=== PATIENT | male | born 1945 | race Caucasian/White ===

== ENCOUNTER 2023-12-20 09:29 | Outpatient (CLI) | payer MEDICARE, SELFPAY ==
[2023-12-20 19:13] LABS: Alanine Aminotransferase 26 U/L (6-50); Albumin Level 3.5 g/dL (3.5-5.1); Alkaline Phosphatase 238 U/L (38-126); Anion Gap 0 mmol/L (8-16); Aspartate Amino Transferase 44 U/L (17-59); Bilirubin,Total 0.5 mg/dL (0.2-1.3); Blood Urea Nitrogen 19 mg/dL (9-20); CRP 2.2 mg/dL (<1.0); Calcium 9.2 mg/dL (8.4-10.2); Carbon Dioxide 34 mmol/L (22-30); Chloride 102 mmol/L (98-107); Cholesterol 187 mg/dL (0-200); Estimated Glomerular Filt Rate > 60; Glucose 135 mg/dL (65-110); HDL Direct 51 mg/dL; Potassium 3.6 mmol/L (3.4-5.0); Sodium 136 mmol/L (137-145); Triglycerides 109 mg/dL (<150)
[2023-12-20 19:21] LABS: LDL Cholesterol Direct 116 mg/dL
[2023-12-20 19:30] LABS: Basophils Absolute Auto 0.1 K/mm3 (0.0-0.1); Basophils Percent Auto 0.5 % (0.2-1.2); Eosinophils Absolute Auto 0.3 K/mm3 (0-0.3); Eosinophils Percent Auto 2.4 % (0-4.4); Hematocrit 34.4 % (42.0-52.0); Hemoglobin 10.5 g/dL (14.0-18.0); Immature Granulocyte Absolute 0.44 K/mm3 (0.00-0.031); Immature Granulocyte Percent A 4.2 % (0-0.5); Lymphocytes Absolute Auto 2.68 K/mm3 (0.9-3.2); Lymphocytes Percent Auto 25.8 % (18.3-44.2); Mean Corpuscular HGB Conc 30.5 g/dl (32-36); Mean Corpuscular Hemoglobin 29.2 pg (26-34); Mean Corpuscular Volume 95.8 fl (80-100); Mean Platelet Volume 11.7 fl (7.4-10.4); Monocytes Percent Auto 9.5 % (2.6-8.5); Neutrophils Percent Auto 57.6 % (45.5-73.1); Platelet Count Result 285 k/mm3 (150-375); Red Blood Count 3.59 M/mm3 (4.6-6.20); Red Cell Distribution Width 14.7 % (11.5-14.5); White Blood Count 10.4 K/mm3 (4.5-10.0)
[2023-12-20 20:14] LABS: Erythrocyte Sedimentation Rate 21 mm/hr (0-20)
== END 2023-12-20 09:30 | disposition home or self-care (01) ==
PROVIDERS: PCP Nurse Practitioner Family; Visit Provider Emergency Medicine
DX: T81.49XA Infection following a procedure, other surgical site, initial encounter (principal); R60.0 Localized edema; E78.5 Hyperlipidemia, unspecified
CPT/HCPCS: 36415; 80053; 80061; 85025; 85652; 86140

== ENCOUNTER 2024-01-22 11:22 | Outpatient (CLI) | payer MEDICARE, SELFPAY ==
--- NOTE | ~2024-01-22 | XR_ITS ---
Clinical Indication: Shortness of breath PA and lateral views of the chest: Comparison: None Findings: Large left pleural effusion present. Right lung clear. Cardiomediastinal silhouette is wit hin normal limits. Bones and soft tissues are unremarkable. Impression: Large left pleural effusion. Reviewed, dictated and finalized at [facility]. Impression: Large left pleural effusion.
== END 2024-01-22 11:23 ==
PROVIDERS: PCP Emergency Medicine; Visit Provider Nurse Practitioner Family
DX: R06.02 Shortness of breath (principal); R05.9 Cough, unspecified; J90 Pleural effusion, not elsewhere classified
CPT/HCPCS: 71046

== ENCOUNTER 2024-04-23 11:39 | Outpatient (CLI) | payer MEDICARE, SELFPAY ==
[2024-04-23 13:20] LABS: Basophils Percent Auto 0.3 % (0.2-1.2); Eosinophils Absolute Auto 0.3 K/mm3 (0-0.3); Eosinophils Percent Auto 3.1 % (0-4.4); Hematocrit 41.2 % (42.0-52.0); Hemoglobin 13.7 g/dL (14.0-18.0); Immature Granulocyte Absolute 0.08 K/mm3 (0.00-0.031); Immature Granulocyte Percent A 0.9 % (0-0.5); Lymphocytes Absolute Auto 2.84 K/mm3 (0.9-3.2); Lymphocytes Percent Auto 32.6 % (18.3-44.2); Mean Corpuscular HGB Conc 33.3 g/dl (32-36); Mean Corpuscular Hemoglobin 28.7 pg (26-34); Mean Corpuscular Volume 86.2 fl (80-100); Mean Platelet Volume 11.1 fl (7.4-10.4); Monocytes Absolute Auto 0.7 K/mm3 (0.1-0.6); Monocytes Percent Auto 8.5 % (2.6-8.5); Neutrophils Absolute Auto 4.7 K/mm3 (1.3-6.7); Neutrophils Percent Auto 54.6 % (45.5-73.1); Platelet Count Result 245 k/mm3 (150-375); Red Blood Count 4.78 M/mm3 (4.6-6.20); Red Cell Distribution Width 16.6 % (11.5-14.5); White Blood Count 8.7 K/mm3 (4.5-10.0)
[2024-04-23 13:53] LABS: Iron 107 ug/dL (49-181)
[2024-04-23 13:59] LABS: Alanine Aminotransferase 14 U/L (6-50); Albumin Level 4.5 g/dL (3.5-5.1); Alkaline Phosphatase 128 U/L (38-126); Anion Gap 7 mmol/L (4-12); Aspartate Amino Transferase 39 U/L (17-59); Bilirubin,Total 0.7 mg/dL (0.2-1.3); Blood Urea Nitrogen 13 mg/dL (9-20); Calcium 9.3 mg/dL (8.4-10.2); Carbon Dioxide 30 mmol/L (22-30); Chloride 104 mmol/L (98-107); Estimated Glomerular Filt Rate > 60; Glucose 105 mg/dL (65-110); Potassium 3.8 mmol/L (3.4-5.0); Sodium 141 mmol/L (137-145)
[2024-04-23 14:26] LABS: Prostate Specific Antigen 0.9 ng/mL (< OR = 4.0)
[2024-04-23 14:35] LABS: Percent Iron Saturation 34 % (20-50)
[2024-04-23 15:23] LABS: Hemoglobin A1C 5.7 % (<5.7)
[2024-04-23 15:33] LABS: Vitamin D 25 Hydroxy 21.5 ng/mL
== END 2024-04-23 11:40 | disposition home or self-care (01) ==
LOC: ANHGOSHLAB 11:40
PROVIDERS: PCP Emergency Medicine; Visit Provider Emergency Medicine
DX: D64.9 Anemia, unspecified (principal); R73.01 Impaired fasting glucose; Z12.5 Encounter for screening for malignant neoplasm of prostate; R53.83 Other fatigue; F41.9 Anxiety disorder, unspecified; E55.9 Vitamin D deficiency, unspecified
CPT/HCPCS: 36415; 80053; 82306; 82607; 82728; 83036; 83540; 83550; 84153; 84443; 85025; G0103

== ENCOUNTER 2024-12-17 08:54 | Outpatient (CLI) | payer MEDICARE, SELFPAY ==
--- OUTSIDE RECORDS SUMMARY | 2024-12-17 09:30 | XMS_ITS | Encounter Summary ---
Author Organization [facility] Health Address [address] [place] [address] Care Team Providers Care Booking Agent Name Role Phone Jaret Saini MD Primary Care Provider [phone] Encounter Details Date Type Department Care Team (Latest Contact Info) Description 12/16/2024 Travel Social History Tobacco Use Types Packs/Day Years Used Date Smoking Tobacco: Never Smokeless Tobacco: Former Chew Alcohol Use Standard Drinks/Week Comments Yes 0 (1 standard drink = 0.6 oz pur e alcohol) rarely AUDIT-C Answer Date Recorded Q1: How often do you have a drink containing alc ohol? Never 03/05/2024 Average Number of Drinks Not on file 024 Frequency of Binge Drinking Not on file 02/20 Overall Financial Resource Strain (CARDIA) Answe r Date Recorded How hard is it for you to pa y for the very basics like food, housing, medical care, and heating? Not hard at all 2023 PHQ-2 Answer Date Recorded Patient Health Questionnaire-2 Score 0 01/23/2024 [facility] - Occupational Stress Questionnaire Answer Date Recorded Do you feel stress - tense, restless, nervous, or anxious, or unable to sleep at night because your mind is troubled all the time - these days? Not at all 2023 Hunger Vital Sign Answer Date Recorded Within the past 12 months, y ou worried that your food would run out before you got the money to buy more. Never true 10/25/19 24 Within the past 12 months, t he food you bought just didn't last and you didn't have money to get more. Never true 2023 PRAPARE - Transportation Answer Date Re corded In the past 12 months, has l ack of transportation kept you from medical appointments or from getting medications? No 12/2023 In the past 12 months, has l ack of transportation kept you from meetings, work, or from getting things needed for daily living? No 2023 Housing Stability Vital Sign Answer Kip e Recorded In the last 12 months, was t here a time when you were not able to pay the mortgage or rent on time? No 2023 In the last 12 months, how many places have you lived? 1 2023 In the last 12 months, was t here a time when you did not have a steady place to sleep or slept in a senior living (including now)? 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 Yes 03/05/2024 Is person blind or have serious difficulty seein g? No 03/05/2024 Does person have serious dif ficulty walking/climbing stairs? No 03/05/2024 Does person have difficulty dressing/bathing? No 03/05/2024 Does person have difficulty doing errands alone? No 03/05/2024 Cognitive Status Response Date of Assessm ent Does person have difficulty concentrating/remembering/making decisions? No 03/05/2024 documented as of this encounter Plan of Treatment Not on file documented as of this encounter Visit Diagnoses Not on filedocumented in this encounter Care Teams Booking Agent Relationship Specialty Start Date End Date Jaret Saini MD [address] [place] [address] PCP - General 02/21/12 documented as of this encounter
--- OUTSIDE RECORDS SUMMARY | 2024-12-17 09:30 | XMS_ITS | Encounter Summary ---
Author Organization [facility] Health Address [address] [place] [address] Care Team Providers Care Named Account Executive Name Role Phone Jaret Saini MD Primary Care Provider [phone] Reason for Referral * Independent Medical Evaluation (Routine) - Open Specialty Diagnoses / Procedures Referred By [facility] Referred To Contact Diagnoses Crushing injury of left forearm, initial encounter Tashi Matthew MD [address] [place] [id number] Referral ID Status Reason Start Date Expiration Date V isits Requested Visits Authorized [id number] Open Specialty Services Required 12/16/2024 12/16/2025 1 1 ATION PROFESSOR Reason for Visit * Reason Comments Follow-up Encounter Details Date Type Department Care Team (Late st Contact Info) Description 12/16/2024 1:45 PM EDUCATION PROFESSOR Office Visit [facility] - Plastic Surgery [address] [place] [address], [facility] [place] [id number] Tashi Matthew MD [address] [place] [phone] Crushing injury of left forearm, initial encounter (Primary Dx) Social History Tobacco Use Types Packs/Day Years Used Date Smoking Tobacco: Never Smokeless Tobacco: Former Chew Tobacco Cessation:Counseling Given: No Alcohol Use Standard Drinks/Week Comments Yes 0 [...] Recorded Patient Health Questionnaire-2 Score 0 01/23/2024 [facility] ional Health - Occupational Stress [...] place to sleep or slept in a group home (including now)? No 2023 Sex and Gender Information Value Date Recorded Sex Assigned at Male 2023 10:40 AM EDUCATION PROFESSOR Gender Identity Male 2023 10:40 AM EDUCATION PROFESSOR Sexual Orientation Not on file documented as of this encounter Last Filed Vital Signs Vital Sign Reading Time Taken Comments Blood Pressure 135/84 12/16/2024 2:29 PM EDUCATION PROFESSOR Pulse 70 12/16/2024 2:29 PM EDUCATION PROFESSOR Temperature 36.9 C (98.4 F) 12/16/2024 2:29 PM EDUCATION PROFESSOR Respiratory Rate - - Oxygen Saturation 93% 12/16/2024 2:29 PM EDUCATION PROFESSOR Inhaled Oxygen Concentration - - Weight 104.8 kg (231 lb) 12/16/2024 2:29 PM EDUCATION PROFESSOR Height 170.2 cm (5' 7 ) 12/16/2024 2:29 PM EDUCATION PROFESSOR Body Mass Index 36.18 12/16/2024 2:29 PM EDUCATION PROFESSOR documented in this encounter Functional Status Functional Status Response [...] as of this encounter Plan of Treatment Scheduled Referrals Name Type Priority Associated Diagnoses Order Schedule Ref to Occupational Therapy - [facility] OT Outpatient Referral Routine Crushing injury of left forearm, initial encounter 1 Occurrences starting 12/16/2024 until 12/16/2025 documented as of this encounter Visit Diagnoses Diagnosis Crushing injury of left forearm, initial encounter- Primary documented in this encounter Care Teams Named Account Executive Relationship Specialty Start Date End Date Jaret Saini MD [address] [place] [address] PCP - General 02/21/12 documented as of this encounter
--- OUTSIDE RECORDS SUMMARY | 2024-12-17 09:30 | XMS_ITS | Patient Health Summary ---
Author Organization [facility] Address [address] [place] [address] Care Team Providers Care Dipper Operator Name Role Phone Jaret Saini MD Primary Care Provider Note from [facility],non-owned Affiliates and Associated Physician Practices is amultiple site organization consisting of ambulatory clinics and hospital sitesin [place], [place], [place] and [place]. This disclosure is being madepursuant to the Care Everywhere program and may not contain all information available regarding this patient. Last updated 18.[facility] Allergies * Posaconazole(Nausea and/or Vomiting) Medications * Be aware that medications may not be up to date on this document. Alwaysverify current medications with the patient. * Nutritional Supplements (Brennan) POWD(Started 11/24/2023) Take 1 packet by mouth 2 times daily Mix with water, juice, soda. * acetaminophen (Tylenol) 500 MG tablet(Started 11/30/2023) Take 1 (one) tablet by mouth every 6 hours Maximum allowable Acetaminophen amount = 4 Grams (4000 mg) / 24 hours. * hydrOXYzine HCl (Atarax) 10 MG tablet(Started 11/30/2023) Take 1 (one) tablet by mouth 4 times daily as needed for Itching Reasons: Feeling Anxious * melatonin 3 MG tablet(Started 11/30/2023) Take 1 (one) tablet by mouth nightly as needed for Insomnia * bumetanide (Bumex) 1 MG tablet(Started 12/20/2023) Take 1 (one) tablet by mouth once daily * SV Iron 325 (65 Fe) MG tablet(Started 01/18/2024) Take 1 (one) tablet by mouth once daily * PARoxetine (Paxil) 40 MG tablet(Started 01/18/2024) Take 1 (one) tablet by mouth once daily * lisinopril (Prinivil; Zestril) 10 MG tablet(Started 10/21/2024) Take 1 (one) tablet by mouth once daily * triamcinolone acetonide (Kenalog) 0.1 % cream(Started 04/23/2024) APPLY CREAM EXTERNALLY TWICE DAILY TO THE RIGHT OUTER EAR Ended Medications* white petroleum (Vaseline) ointment(Started 11/30/2023) (Discontinued) Apply to affected area once daily to LUE as per wound care instructions daily with dressing changes. * posaconazole (Noxafil) 100 MG tablet(Started 12/14/2023)(Discontinued) Take 3 (three) tablets by mouth daily with dinner 4 refills by 12/13/2024 Active Problems Problem Noted Date Diagnosed Date SOB (shortness of breath) 01/23/2024 Pleural effusion, left 01/23/2024 Acute hypoxic respiratory failure 11/17/2023 Primary hypertension 11/17/2023 Acute blood loss anemia 2023 Crushing injury of left forearm, initial encount er 10/24/2023 Type I or II open fracture o f shaft of left radius with ulna, initial encounter 10/24/2023 Other infective otitis externa, unspecified ear 08/06/2015 Sensorineural hearing loss of both ears 02/22/20 12 Pruritus 02/22/2012 Otorrhea 02/22/2012 Tinnitus 02/22/2012 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 No 2023 Sex and Gender Information Value Date Recorded Sex Assigned at Male 2023 10:40 AM [employer]IGH [employer]CHO[employer] ADMISSIONS REPRESENTATIVE Gender Identity Male 2023 10:40 AM HIGH SCHOOL ADMISSIONS REPRESENTATIVE Sexual Orientation Not on file Last Filed Vital Signs Vital Sign Reading Time Taken Comments Blood Pressure 135/84 12/16/2024 2:29 PM HIGH SCHOOL ADMISSIONS REPRESENTATIVE Pulse 70 12/16/2024 2:29 PM HIGH SCHOOL ADMISSIONS REPRESENTATIVE Temperature 36.9 C (98.4 F) 12/16/2024 2:29 PM HIGH SCHOOL ADMISSIONS REPRESENTATIVE Respiratory Rate 18 07/22/2024 1:02 PM CDT Oxygen Saturation 93% 12/16/2024 2:29 PM HIGH SCHOOL ADMISSIONS REPRESENTATIVE Inhaled Oxygen Concentration 35% 11/20/2023 4 :00 AM HIGH SCHOOL ADMISSIONS REPRESENTATIVE Weight 104.8 kg (231 lb) 12/16/2024 2:29 PM HIGH SCHOOL ADMISSIONS REPRESENTATIVE Height 170.2 cm (5' 7 ) 12/16/2024 2:29 PM HIGH SCHOOL ADMISSIONS REPRESENTATIVE Body Mass Index 36.18 12/16/2024 2:29 PM HIGH SCHOOL ADMISSIONS REPRESENTATIVE Medical Devices Implanted Type Area Dyeing Machine Tender Device Identifier Shelf Expiration Date Model / Serial / Lot Screw 2.7mm 5mm 14mm T8 Slf-Tap Strdr Implanted:Qty: 1 on 10/24/2023 by Tashi Matthew MD at [facility] [employer] | [employer] [facility] [id number] / / Screw 3.5mm 2.9mm 20mm T15 Ft Slf-Tap Implanted:Qty: 1 on 10/24/2023 by Tashi Matthew MD at [facility] [employer] | [employer] [facility] 212.106 / / Screw 3.5mm 6mm 14mm Ft Samuel Slf-Tap Sm Implanted:Qty: 3 on 10/24/2023 by Tashi Matthew MD at [facility] 204.814 / / Screw 3.5mm 6mm 16mm 2.5mm Ft Slf-Tap Implanted:Qty: 5 on 10/24/2023 by Tashi Matthew MD at [facility] [employer] | [employer] [facility] 204.816 / / Plate [id number] 10 Hl Lmt Cntct Tpr Implanted:Qty: 1 on 10/24/2023 by Tashi Matthew MD at [facility] [employer] | [employer] [facility] 223.601 / / Plate 12 Hl Lmt Cntct Tpr End [id number] Implanted:Qty: 1 on 10/24/2023 by Tashi Matthew MD at [facility] [employer] | [employer] [facility] 223.621 / / Screw 2.7mm 5mm 16mm T8 Slf-Tap Strdr Implanted:Qty: 2 on 10/24/2023 by Tashi Matthew MD at [facility] 202.876 / / Screw 2.7mm 5mm 18mm T8 Samuel Slf-Tap Implanted:Qty: 2 on 10/24/2023 by Tashi Matthew MD at [facility] 202.878 / / Screw 2.7mm 2.1mm 20mm T8 Slf-Tap Lck Implanted:Qty: 1 on 10/24/2023 by Tashi Matthew MD at [facility] 202.220 / / Plate 2 Hle/Hd 3 Hl Shft Lopro Cut To Implanted:Qty: 1 on 10/24/2023 by Tashi Matthew MD at [facility] 249.685 / / Screw 3.5mm 2.9mm 10mm T15 Ft Slf-Tap Implanted:Qty: 1 on 10/24/2023 by Tashi Matthew MD at [facility] 212.101 / / Screw 3.5mm 2.9mm 14mm T15 Ft Slf-Tap Implanted:Qty: 1 on 10/24/2023 by Tashi Matthew MD at [facility] 212.103 / / Screw 3.5mm 2.9mm 16mm T15 Ft Slf-Tap Implanted:Qty: 3 on 10/24/2023 by Tashi Matthew MD at [facility] 212.104 / / Screw 3.5mm 2.9mm 18mm T15 Ft Slf-Tap Implanted:Qty: 1 on 10/24/2023 by Tashi Matthew MD at [facility] 212.105 / / Mtrx Tissue [id number] Cytal Prcn Bldr 3 - [id number] Implanted:Qty: 1 on 10/27/2023 by Tashi Matthew MD at [facility] Left: Arm [employer] Conecte Link Erika 03/22/2025 [id number] / [id number] / [id number] 3.5mm Cannulated Compression Headless Screw 26mm Implanted:Qty: 1 on 10/27/2023 by Tashi Matthew MD at [facility] Left: Arm [employer] Tra[employer] [id number] / / Sys Impl Internalbrace Forefoot Peek Implanted:Qty: 1 on 11/17/2023 by Tashi Matthew MD at [facility] Left: Arm [employer] 04/21/2028 AR-1530P-C P / / [id number] Set Impl Internalbrace Hand Wrst Kt Implanted:Qty: 1 on 11/17/2023 by Tashi Matthew MD at [facility] Left: Arm [employer] 07/22/2024 [id number] / / [id number] [place] Sut Cscr Fwr 2.2mm 2 Ndl Wire 4mm Implanted:Qty: 1 on 11/17/2023 by Tashi Matthew MD at [facility] Left: Arm [employer] 12/21/2027 AR-[id number] / / [id number] Explanted Type Area Dyeing Machine Tender Device Identifier Shelf Expiration Date Model / Serial / Lot K-Wire 1.6mm (0.062) X 152 (6) Explanted:Qty: 2 on 11/17/2023 by Tashi Matthew MD at [facility] Left: Arm 08/08/2026 [id number] / / [id number] Procedures * XR CHEST 1VW PORTABLE(Performed 03/05/2024) Performed for Pleural effusion, left * XR CHEST 1VW PORTABLE(Performed 03/05/2024) Performed for Pleural effusion, left * CULTURE ANAEROBE(Performed 03/05/2024) Performed for Pleural effusion, left * CULTURE FLUID+GRAM STAIN(Performed 03/05/2024) Performed for Pleural effusion, left * PROTEIN BODY FLUID(Performed 03/05/2024) Performed for Pleural effusion, left * AMYLASE BODY FLUID(Performed 03/05/2024) Performed for Pleural effusion, left * LDH BODY FLUID(Performed 03/05/2024) Performed for Pleural effusion, left * CHOLESTEROL BODY FLUID(Performed 03/05/2024) Performed for Pleural effusion, left * GLUCOSE BODY FLUID(Performed 03/05/2024) Performed for Pleural effusion, left * CYTOLOGY NON-PLATFORM LOADER PANEL (STL)(Performed 03/05/2024) Performed for Pleural effusion, left * DIFFERENTIAL MANUAL FLUID(Performed 03/05/2024) Performed for Pleural effusion, left * CELL COUNT W DIFFERENTIAL FLUID(Performed 03/05/2024) Performed for Pleural effusion, left * PH BODY FLUID ([facility] ONLY)(Performed 03/05/2024) Performed for Pleural effusion, left * MN ASPIRATE PLEURA WO IMAGING(Performed 03/05/2024) Performed for Pleural effusion * XR CHEST 2VW(Performed 02/29/2024) Performed for Pleural effusion * PROTEIN TOTAL BLOOD(Performed 01/25/2024) * XR CHEST 1VW PORTABLE(Performed 01/25/2024) Performed for Pleural effusion, left * DIFFERENTIAL MANUAL FLUID(Performed 01/25/2024) Performed for Pleural effusion, left * CELL COUNT W DIFFERENTIAL FLUID(Performed 01/25/2024) Performed for Pleural effusion, left * AMYLASE BODY FLUID(Performed 01/25/2024) * CHOLESTEROL BODY FLUID(Performed 01/25/2024) * LDH BODY FLUID(Performed 01/25/2024) * PROTEIN BODY FLUID(Performed 01/25/2024) * GLUCOSE BODY FLUID(Performed 01/25/2024) * CULTURE FUNGUS OTHER+FUNGUS SMEAR(Performed 01/25/2024) * CULTURE FLUID+GRAM STAIN(Performed 01/25/2024) * CULTURE ANAEROBE(Performed 01/25/2024) * CYTOLOGY NON-PLATFORM LOADER PANEL (STL)(Performed 01/25/2024) Performed for Pleural effusion, left * PH BODY FLUID ([facility] ONLY)(Performed 01/25/2024) * PT EVAL AND TREAT(Performed 01/25/2024) * TSH REFLEX FREE T4(Performed 01/25/2024) * CBC W AUTO DIFFERENTIAL(Performed 01/25/2024) * MAGNESIUM BLOOD(Performed 01/25/2024) * PHOSPHORUS BLOOD(Performed 01/25/2024) * BASIC METABOLIC PANEL (CALCIUM TOTAL)(Performed 01/25/2024) * XR CHEST 1VW PORTABLE(Performed 01/24/2024) Performed for Pleural effusion, left * OT EVAL AND TREAT(Performed 01/24/2024) * CBC W AUTO DIFFERENTIAL(Performed 01/24/2024) * MAGNESIUM BLOOD(Performed 01/24/2024) * PHOSPHORUS BLOOD(Performed 01/24/2024) * BASIC METABOLIC PANEL (CALCIUM TOTAL)(Performed 01/24/2024) * LDH BLOOD(Performed 01/24/2024) * ERYTHROCYTE SEDIMENTATION RATE(Performed 01/24/2024) * TROPONIN-I HIGH SENSITIVE REFLEX 1HOUR(Performed 01/24/2024) * CYTOLOGY NON-PLATFORM LOADER PANEL (STL)(Performed 01/23/2024) Performed for Pleural effusion, left * PROTEIN BODY FLUID(Performed 01/23/2024) * DIFFERENTIAL MANUAL FLUID(Performed 01/23/2024) * AMYLASE BODY FLUID(Performed 01/23/2024) * LDH BODY FLUID(Performed 01/23/2024) * PH BODY FLUID ([facility] ONLY)(Performed 01/23/2024) * GLUCOSE BODY FLUID(Performed 01/23/2024) * CELL COUNT W DIFFERENTIAL FLUID(Performed 01/23/2024) * CULTURE FLUID+GRAM STAIN(Performed 01/23/2024) * CT ANGIO CHEST PULM EMBOLISM(Performed 01/23/2024) Performed for Pleural effusion, left, SOB (shortness of breath) * XR HAND LEFT 3VW OR MORE(Performed 01/23/2024) Performed for Right leg swelling * VAS RIGHT VENOUS DUPLEX LE(Performed 01/23/2024) Performed for Right leg swelling * XR CHEST 2VW(Performed 01/23/2024) Performed for Right leg swelling * EKG 12-LEAD(Performed 01/23/2024) Performed for Right leg swelling * PT-INR [facility](Performed 01/23/2024) * TROPONIN-I HIGH SENSITIVE BASELINE + 1HR(Performed 01/23/2024) * B-TYPE NATRIURETIC PEPTIDE(Performed 01/23/2024) * MAGNESIUM BLOOD(Performed 01/23/2024) * COMPREHENSIVE METABOLIC PANEL(Performed 01/23/2024) * CBC W AUTO DIFFERENTIAL(Performed 01/23/2024) * XR FOREARM LEFT 2VW OR MORE(Performed 12/19/2023) Performed for Crushing injury of left forearm, initial encounter * APHERESIS/TRANSFUSION ORDER(Performed 12/04/2023) * SARS-COV-2 (COVID-19) RAPID(Performed 12/01/2023) * COMPREHENSIVE METABOLIC PANEL(Performed 12/01/2023) * CBC W AUTO DIFFERENTIAL(Performed 12/01/2023) * MAGNESIUM BLOOD(Performed 12/01/2023) * PHOSPHORUS BLOOD(Performed 12/01/2023) * COMPREHENSIVE METABOLIC PANEL(Performed 11/30/2023) * CBC W AUTO DIFFERENTIAL(Performed 11/30/2023) * MAGNESIUM BLOOD(Performed 11/30/2023) * PHOSPHORUS BLOOD(Performed 11/30/2023) * COMPREHENSIVE METABOLIC PANEL(Performed 11/29/2023) * CBC W AUTO DIFFERENTIAL(Performed 11/29/2023) * MAGNESIUM BLOOD(Performed 11/29/2023) * PHOSPHORUS BLOOD(Performed 11/29/2023) * COMPREHENSIVE METABOLIC PANEL(Performed 11/28/2023) * CBC W AUTO DIFFERENTIAL(Performed 11/28/2023) * MAGNESIUM BLOOD(Performed 11/28/2023) * PHOSPHORUS BLOOD(Performed 11/28/2023) * COMPREHENSIVE METABOLIC PANEL(Performed 11/27/2023) * CBC W AUTO DIFFERENTIAL(Performed 11/27/2023) * MAGNESIUM BLOOD(Performed 11/27/2023) * PHOSPHORUS BLOOD(Performed 11/27/2023) * COMPREHENSIVE METABOLIC PANEL(Performed 11/26/2023) * CBC W AUTO DIFFERENTIAL(Performed 11/26/2023) * MAGNESIUM BLOOD(Performed 11/26/2023) * PHOSPHORUS BLOOD(Performed 11/26/2023) * PTT [facility](Performed 11/25/2023) * PT-INR [facility](Performed 11/25/2023) * COMPREHENSIVE METABOLIC PANEL(Performed 11/25/2023) * CBC W AUTO DIFFERENTIAL(Performed 11/25/2023) * MAGNESIUM BLOOD(Performed 11/25/2023) * PHOSPHORUS BLOOD(Performed 11/25/2023) * PREALBUMIN(Performed 11/25/2023) * PTT [facility](Performed 11/24/2023) * PT-INR [facility](Performed 11/24/2023) * COMPREHENSIVE METABOLIC PANEL(Performed 11/24/2023) * CBC W AUTO DIFFERENTIAL(Performed 11/24/2023) * MAGNESIUM BLOOD(Performed 11/24/2023) * PHOSPHORUS BLOOD(Performed 11/24/2023) * PTT [facility](Performed 11/23/2023) * PT-INR [facility](Performed 11/23/2023) * COMPREHENSIVE METABOLIC PANEL(Performed 11/23/2023) * CBC W AUTO DIFFERENTIAL(Performed 11/23/2023) * MAGNESIUM BLOOD(Performed 11/23/2023) * PHOSPHORUS BLOOD(Performed 11/23/2023) * PTT [facility](Performed 11/22/2023) * PT-INR [facility](Performed 11/22/2023) * COMPREHENSIVE METABOLIC PANEL(Performed 11/22/2023) * CBC W AUTO DIFFERENTIAL(Performed 11/22/2023) * MAGNESIUM BLOOD(Performed 11/22/2023) * PHOSPHORUS BLOOD(Performed 11/22/2023) * PTT [facility](Performed 11/21/2023) * PT-INR [facility](Performed 11/21/2023) * COMPREHENSIVE METABOLIC PANEL(Performed 11/21/2023) * CBC W AUTO DIFFERENTIAL(Performed 11/21/2023) * MAGNESIUM BLOOD(Performed 11/21/2023) * PHOSPHORUS BLOOD(Performed 11/21/2023) * PREPARE RBC LEUKOREDUCED UNIT(Performed 11/21/2023) * PREPARE RBC LEUKOREDUCED UNIT(Performed 11/21/2023) * GLUCOSE - POINT OF CARE(Performed 11/20/2023) * GLUCOSE - POINT OF CARE(Performed 11/20/2023) * GLUCOSE - POINT OF CARE(Performed 11/20/2023) * GLUCOSE - POINT OF CARE(Performed 11/20/2023) * PTT [facility](Performed 11/20/2023) * PT-INR [facility](Performed 11/20/2023) * COMPREHENSIVE METABOLIC PANEL(Performed 11/20/2023) * CBC W AUTO DIFFERENTIAL(Performed 11/20/2023) * MAGNESIUM BLOOD(Performed 11/20/2023) * PHOSPHORUS BLOOD(Performed 11/20/2023) * GLUCOSE - POINT OF CARE(Performed 11/19/2023) * GLUCOSE - POINT OF CARE(Performed 11/19/2023) * CK BLOOD(Performed 11/19/2023) * GLUCOSE - POINT OF CARE(Performed 11/19/2023) * PTT [facility](Performed 11/19/2023) * PT-INR [facility](Performed 11/19/2023) * COMPREHENSIVE METABOLIC PANEL(Performed 11/19/2023) * CBC W AUTO DIFFERENTIAL(Performed 11/19/2023) * MAGNESIUM BLOOD(Performed 11/19/2023) * PHOSPHORUS BLOOD(Performed 11/19/2023) * GLUCOSE - POINT OF CARE(Performed 11/18/2023) * GLUCOSE - POINT OF CARE(Performed 11/18/2023) * GLUCOSE - POINT OF CARE(Performed 11/18/2023) * ECHO COMPLETE W CONTRAST(Performed 11/18/2023) Performed for Systolic murmur * TRANSFUSE RED BLOOD CELL LEUKOREDUCED UNIT(S)(Performed 11/18/2023) * CBC W AUTO DIFFERENTIAL(Performed 11/18/2023) * GLUCOSE - POINT OF CARE(Performed 11/18/2023) * COMPREHENSIVE METABOLIC PANEL(Performed 11/18/2023) * MAGNESIUM BLOOD(Performed 11/18/2023) * PHOSPHORUS BLOOD(Performed 11/18/2023) * PTT [facility](Performed 11/18/2023) * PT-INR [facility](Performed 11/18/2023) * PREALBUMIN(Performed 11/18/2023) * PTT [facility](Performed 11/17/2023) * PT-INR [facility](Performed 11/17/2023) * CBC W AUTO DIFFERENTIAL(Performed 11/17/2023) * XR CHEST 1VW PORTABLE(Performed 11/17/2023) Performed for Shortness of breath * PTT [facility](Performed 11/17/2023) * PT-INR [facility](Performed 11/17/2023) * PHOSPHORUS BLOOD(Performed 11/17/2023) * MAGNESIUM BLOOD(Performed 11/17/2023) * COMPREHENSIVE METABOLIC PANEL(Performed 11/17/2023) * CBC W AUTO DIFFERENTIAL(Performed 11/17/2023) * BLOOD GAS+COOX+LYTES+METAB ARTERIAL POCT(Performed 11/17/2023) * BLOOD GAS+COOX+LYTES+METAB ARTERIAL POCT(Performed 11/17/2023) * BLOOD GAS+COOX+LYTES+METAB ARTERIAL POCT(Performed 11/17/2023) * ADAL FOR ANESTHESIA(Performed 11/17/2023) * BLOOD GAS+COOX+LYTES+METAB ARTERIAL POCT(Performed 11/17/2023) * BLOOD GAS ART+LYTES+METAB+COOX POC NOTIF(Performed 11/17/2023) Performed for CARROL (acute kidney injury) (HCC) * ARTERIAL LINE NOTE(Performed 11/17/2023) * ENDOTRACHEAL TUBE NOTE(Performed 11/17/2023) * MN FREE MUSC FLAP W/WO MICROVASC ANAST(Performed 11/17/2023) Performed for Mutilating injury of left hand, subsequent encounter * MN EDMUNDO MUSC/FASCIA 20 SQ CM/<(Performed 11/17/2023) Performed for Mutilating injury of left hand, subsequent encounter * ECHO ANES ADAL INTRAOP(Performed 11/17/2023) Performed for Systolic murmur * TYPE + SCREEN PANEL(Performed 11/17/2023) Performed for Crushing injury of left forearm, initial encounter * BASIC METABOLIC PANEL (CALCIUM TOTAL)(Performed 11/17/2023) * MAGNESIUM BLOOD(Performed 11/17/2023) * CBC W AUTO DIFFERENTIAL(Performed 11/17/2023) * BASIC METABOLIC PANEL (CALCIUM TOTAL)(Performed 11/16/2023) * MAGNESIUM BLOOD(Performed 11/16/2023) * CBC W AUTO DIFFERENTIAL(Performed 11/16/2023) * CK BLOOD(Performed 11/15/2023) * BASIC METABOLIC PANEL (CALCIUM TOTAL)(Performed 11/15/2023) * MAGNESIUM BLOOD(Performed 11/15/2023) * CBC W AUTO DIFFERENTIAL(Performed 11/15/2023) * POSACONAZOLE LEVEL(Performed 11/15/2023) * VAS BILATERAL VENOUS DUPLEX LE(Performed 11/14/2023) Performed for Shortness of breath * BASIC METABOLIC PANEL (CALCIUM TOTAL)(Performed 11/14/2023) * HEPATIC FUNCTION PANEL(Performed 11/14/2023) * MAGNESIUM BLOOD(Performed 11/14/2023) * CBC W AUTO DIFFERENTIAL(Performed 11/14/2023) * TRANSFUSE RED BLOOD CELL LEUKOREDUCED UNIT(S)(Performed 11/13/2023) * PREPARE RBC LEUKOREDUCED UNIT(Performed 11/13/2023) * IR PICC LINE INSERT(Performed 11/13/2023) Performed for Crushing injury of left forearm, initial encounter * TYPE + SCREEN PANEL(Performed 11/13/2023) * BASIC METABOLIC PANEL (CALCIUM TOTAL)(Performed 11/13/2023) * MAGNESIUM BLOOD(Performed 11/13/2023) * CBC W AUTO DIFFERENTIAL(Performed 11/13/2023) * PT EVAL AND TREAT(Performed 11/12/2023) * OT EVAL AND TREAT(Performed 11/12/2023) * TROPONIN-I HIGH SENSITIVE(Performed 11/12/2023) * BASIC METABOLIC PANEL (CALCIUM TOTAL)(Performed 11/12/2023) * MAGNESIUM BLOOD(Performed 11/12/2023) * CBC W AUTO DIFFERENTIAL(Performed 11/12/2023) * EKG 12-LEAD(Performed 11/11/2023) Performed for Shortness of breath * XR CHEST 1VW PORTABLE(Performed 11/11/2023) Performed for Shortness of breath * US RETROPERITONEAL COMPLETE(Performed 11/11/2023) Performed for CARROL (acute kidney injury) (HCC) * PREALBUMIN(Performed 11/11/2023) * COMPREHENSIVE METABOLIC PANEL(Performed 11/11/2023) * MAGNESIUM BLOOD(Performed 11/11/2023) * CBC W AUTO DIFFERENTIAL(Performed 11/11/2023) * URINALYSIS REFLEX TO MICROSCOPIC NO CULTURE(Performed 11/10/2023) * SODIUM URINE RANDOM(Performed 11/10/2023) * CREATININE URINE RANDOM(Performed 11/10/2023) * UREA NITROGEN URINE RANDOM(Performed 11/10/2023) * ERYTHROCYTE SEDIMENTATION RATE(Performed 11/10/2023) * C-REACTIVE PROTEIN(Performed 11/10/2023) * XR CHEST 1VW(Performed 11/10/2023) Performed for Shortness of breath * MAGNESIUM BLOOD(Performed 11/10/2023) * COMPREHENSIVE METABOLIC PANEL(Performed 11/10/2023) * CBC W AUTO DIFFERENTIAL(Performed 11/10/2023) * PT EVAL AND TREAT(Performed 11/09/2023) * COMPREHENSIVE METABOLIC PANEL(Performed 11/09/2023) * MAGNESIUM BLOOD(Performed 11/09/2023) * CBC W AUTO DIFFERENTIAL(Performed 11/09/2023) * CBC W AUTO DIFFERENTIAL(Performed 11/08/2023) * CULTURE AFB+SMEAR(Performed 11/08/2023) * CULTURE ANAEROBE(Performed 11/08/2023) * CULTURE TISSUE+GRAM STAIN(Performed 11/08/2023) * CULTURE FUNGUS OTHER+FUNGUS SMEAR(Performed 11/08/2023) * CULTURE TISSUE+GRAM STAIN(Performed 11/08/2023) * CULTURE FUNGUS OTHER+FUNGUS SMEAR(Performed 11/08/2023) * CULTURE ANAEROBE(Performed 11/08/2023) * CULTURE AFB+SMEAR(Performed 11/08/2023) * CULTURE TISSUE+GRAM STAIN(Performed 11/08/2023) * CULTURE FUNGUS OTHER+FUNGUS SMEAR(Performed 11/08/2023) * CULTURE ANAEROBE(Performed 11/08/2023) * CULTURE AFB+SMEAR(Performed 11/08/2023) * CULTURE TISSUE+GRAM STAIN(Performed 11/08/2023) * CULTURE FUNGUS OTHER+FUNGUS SMEAR(Performed 11/08/2023) * CULTURE AFB+SMEAR(Performed 11/08/2023) * CULTURE ANAEROBE(Performed 11/08/2023) * LARYNGEAL MASK AIRWAY(Performed 11/08/2023) * MN EDMUNDO SUBQ TISSUE 20 SQ CM/<(Performed 11/08/2023) Performed for Open wound of left forearm, subsequent encounter * MAGNESIUM BLOOD(Performed 11/08/2023) * COMPREHENSIVE METABOLIC PANEL(Performed 11/08/2023) * CBC W AUTO DIFFERENTIAL(Performed 11/08/2023) * CK BLOOD(Performed 11/07/2023) * HEPATIC FUNCTION PANEL(Performed 11/07/2023) * COMPREHENSIVE METABOLIC PANEL(Performed 11/07/2023) * MAGNESIUM BLOOD(Performed 11/07/2023) * CBC W AUTO DIFFERENTIAL(Performed 11/07/2023) * HEPATITIS C AB SCREEN RFLX NAAT QUANT(Performed 11/06/2023) * HIV-1 HIV-2 ANTIBODY + HIV P24 AG PANEL(Performed 11/06/2023) * MAGNESIUM BLOOD(Performed 11/06/2023) * COMPREHENSIVE METABOLIC PANEL(Performed 11/06/2023) * CBC W AUTO DIFFERENTIAL(Performed 11/06/2023) * COMPREHENSIVE METABOLIC PANEL(Performed 11/05/2023) * MAGNESIUM BLOOD(Performed 11/05/2023) * CBC W AUTO DIFFERENTIAL(Performed 11/05/2023) * PREALBUMIN(Performed 11/04/2023) * COMPREHENSIVE METABOLIC PANEL(Performed 11/04/2023) * MAGNESIUM BLOOD(Performed 11/04/2023) * CBC W AUTO DIFFERENTIAL(Performed 11/04/2023) * CBC W/O DIFFERENTIAL(Performed 11/03/2023) * TRANSFUSE RED BLOOD CELL LEUKOREDUCED UNIT(S)(Performed 11/03/2023) * PREPARE RBC LEUKOREDUCED UNIT(Performed 11/03/2023) * TYPE + SCREEN PANEL(Performed 11/03/2023) * MAGNESIUM BLOOD(Performed 11/03/2023) * COMPREHENSIVE METABOLIC PANEL(Performed 11/03/2023) * CBC W AUTO DIFFERENTIAL(Performed 11/03/2023) * COMPREHENSIVE METABOLIC PANEL(Performed 11/02/2023) * MAGNESIUM BLOOD(Performed 11/02/2023) * CBC W AUTO DIFFERENTIAL(Performed 11/02/2023) * CBC W/O DIFFERENTIAL(Performed 11/01/2023) * OT EVAL AND TREAT(Performed 11/01/2023) * PT EVAL AND TREAT(Performed 11/01/2023) * CULTURE TISSUE+GRAM STAIN(Performed 11/01/2023) * CULTURE FUNGUS OTHER+FUNGUS SMEAR(Performed 11/01/2023) * CULTURE AFB+SMEAR(Performed 11/01/2023) * CULTURE ANAEROBE(Performed 11/01/2023) * CULTURE AFB+SMEAR(Performed 11/01/2023) * CULTURE FUNGUS OTHER+FUNGUS SMEAR(Performed 11/01/2023) * CULTURE TISSUE+GRAM STAIN(Performed 11/01/2023) * CULTURE ANAEROBE(Performed 11/01/2023) * CULTURE FUNGUS OTHER+FUNGUS SMEAR(Performed 11/01/2023) * CULTURE WOUND+GRAM STAIN(Performed 11/01/2023) * CULTURE AFB+SMEAR(Performed 11/01/2023) * CULTURE ANAEROBE(Performed 11/01/2023) * CULTURE AFB+SMEAR(Performed 11/01/2023) * CULTURE AFB+SMEAR(Performed 11/01/2023) * CULTURE TISSUE+GRAM STAIN(Performed 11/01/2023) * CULTURE FUNGUS OTHER+FUNGUS SMEAR(Performed 11/01/2023) * CULTURE TISSUE+GRAM STAIN(Performed 11/01/2023) * CULTURE ANAEROBE(Performed 11/01/2023) * CULTURE FUNGUS OTHER+FUNGUS SMEAR(Performed 11/01/2023) * CULTURE ANAEROBE(Performed 11/01/2023) * MN DEBRIDE SKIN AT FX SITE(Performed 11/01/2023) Performed for Non-healing wound of right upper extremity * LARYNGEAL [place] [employer](Performed 11/01/2023) * MAGNESIUM BLOOD(Performed 11/01/2023) * COMPREHENSIVE METABOLIC PANEL(Performed 11/01/2023) * CBC W AUTO DIFFERENTIAL(Performed 11/01/2023) * TYPE + SCREEN PANEL(Performed 10/31/2023) * OT EVAL AND TREAT(Performed 10/31/2023) * CBC W AUTO DIFFERENTIAL(Performed 10/31/2023) * CK BLOOD(Performed 10/31/2023) * HEPATIC FUNCTION PANEL(Performed 10/31/2023) * COMPREHENSIVE METABOLIC PANEL(Performed 10/31/2023) * MAGNESIUM BLOOD(Performed 10/31/2023) * PREPARE RBC LEUKOREDUCED UNIT(Performed 10/31/2023) * PREPARE RBC LEUKOREDUCED UNIT(Performed 10/31/2023) * XR HAND LEFT 3VW OR MORE(Performed 10/30/2023) Performed for [place] injury of left forearm, initial encounter * XR WRIST LEFT 3VW OR MORE(Performed 10/30/2023) Performed for [place] injury of left forearm, initial encounter * OT EVAL AND TREAT(Performed 10/30/2023) * PT EVAL AND TREAT(Performed 10/30/2023) * PHOSPHORUS BLOOD(Performed 10/30/2023) * MAGNESIUM BLOOD(Performed 10/30/2023) * CBC W AUTO DIFFERENTIAL(Performed 10/30/2023) * VANCOMYCIN LEVEL TROUGH(Performed 10/29/2023) * VANCOMYCIN LEVEL PEAK(Performed 10/29/2023) * VANCOMYCIN LEVEL PEAK(Performed 10/29/2023) * CBC W/O DIFFERENTIAL(Performed 10/29/2023) * COMPREHENSIVE METABOLIC PANEL(Performed 10/29/2023) * PREALBUMIN(Performed 10/29/2023) * MAGNESIUM BLOOD(Performed 10/29/2023) * CBC W AUTO DIFFERENTIAL(Performed 10/29/2023) * PTT SLH(Performed 10/28/2023) * MAGNESIUM BLOOD(Performed 10/28/2023) * BASIC METABOLIC PANEL (CALCIUM TOTAL)(Performed 10/28/2023) * CBC W AUTO DIFFERENTIAL(Performed 10/28/2023) * PREPARE RBC LEUKOREDUCED UNIT(Performed 10/28/2023) * PREPARE RBC LEUKOREDUCED UNIT(Performed 10/28/2023) * VANCOMYCIN LEVEL TROUGH(Performed 10/27/2023) * CBC W AUTO DIFFERENTIAL(Performed 10/27/2023) * FUNGUS IDENTIFICATION(Performed 10/27/2023) * CULTURE TISSUE+GRAM STAIN(Performed 10/27/2023) * CULTURE TISSUE+GRAM STAIN(Performed 10/27/2023) * LARYNGEAL MASK AIRWAY(Performed 10/27/2023) * MN TREAT METACARPAL FRACTURE(Performed 10/27/2023) Performed for [place]ushing injury * MN FIX EXTEN TENDON,DORSUM HAND,GRFT(Performed 10/27/2023) Performed for [place] injury * MN EDMUNDO BONE 20 SQ CM/<(Performed 10/27/2023) Performed for [place] injury * MN EXPLORE WOUND,EXTREMITY(Performed 10/27/2023) Performed for [place] injury * TRANSFUSE RED BLOOD CELL LEUKOREDUCED UNIT(S)(Performed 10/27/2023) * PREPARE RBC LEUKOREDUCED UNIT(Performed 10/27/2023) * TRANSFUSE RED BLOOD CELL LEUKOREDUCED UNIT(S)(Performed 10/27/2023) * TYPE + SCREEN PANEL(Performed 10/27/2023) * MAGNESIUM BLOOD(Performed 10/27/2023) * BASIC METABOLIC PANEL (CALCIUM TOTAL)(Performed 10/27/2023) * CBC W AUTO DIFFERENTIAL(Performed 10/27/2023) * VANCOMYCIN LEVEL PEAK(Performed 10/27/2023) * PTT [facility](Performed 10/27/2023) * PTT [facility](Performed 10/26/2023) * MAGNESIUM BLOOD(Performed 10/26/2023) * BASIC METABOLIC PANEL (CALCIUM TOTAL)(Performed 10/26/2023) * CBC W AUTO DIFFERENTIAL(Performed 10/26/2023) * CBC W/O DIFFERENTIAL(Performed 2023) * PT-INR [facility](Performed 2023) * CARDIAC EKG ORDER(Performed 2023) * CBC W/O DIFFERENTIAL(Performed 2023) * XR ELBOW LEFT 2VW(Performed 2023) Performed for [place]ushing injury of left forearm, initial encounter * XR FOREARM LEFT 2VW OR MORE(Performed 2023) Performed for [place]ushing injury of left forearm, initial encounter * XR HAND LEFT 3VW OR MORE(Performed 2023) Performed for [place] injury of left forearm, initial encounter * XR HUMERUS LEFT 2VW OR MORE(Performed 2023) Performed for [place] injury of left forearm, initial encounter * PT EVAL AND TREAT(Performed 2023) * PTT [facility](Performed 2023) * PT-INR [facility](Performed 2023) * PHOSPHORUS BLOOD(Performed 2023) * MAGNESIUM BLOOD(Performed 2023) * BASIC METABOLIC PANEL (CALCIUM TOTAL)(Performed 2023) * CBC W AUTO DIFFERENTIAL(Performed 2023) * CBC W/O DIFFERENTIAL(Performed 10/24/2023) * BLOOD GAS+COOX+LYTES+METAB VENOUS POCT(Performed 10/24/2023) * BLOOD TYPE VERIFICATION(Performed 10/24/2023) * BLOOD GAS+COOX+LYTES+METAB VENOUS POCT(Performed 10/24/2023) * BLOOD GAS MANDY+LYTES+METAB+COOX POC NOTIF(Performed 10/24/2023) Performed for [place]ushing injury of left forearm, initial encounter * CULTURE FUNGUS OTHER+FUNGUS SMEAR(Performed 10/24/2023) * CULTURE AFB+SMEAR(Performed 10/24/2023) * CULTURE WOUND+GRAM STAIN(Performed 10/24/2023) * CULTURE ANAEROBE(Performed 10/24/2023) * ENDOTRACHEAL TUBE NOTE(Performed 10/24/2023) * MN EXPLORE WOUND,EXTREMITY(Performed 10/24/2023) Performed for Open wound of left upper extremity, initial encounter * TEG 6S PLATELET MAPPING(Performed 10/24/2023) * XR FOREARM LEFT 1VW(Performed 10/24/2023) Performed for [place]ushing injury of left forearm, initial encounter * XR HAND LEFT 2VW(Performed 10/24/2023) Performed for [place] injury of left forearm, initial encounter * TYPE + SCREEN PANEL(Performed 10/24/2023) * TEG 6 GLOBAL HEMOSTASIS W/ LYSIS(Performed 10/24/2023) * PT-INR SLH(Performed 10/24/2023) * PTT [facility](Performed 10/24/2023) * CK BLOOD(Performed 10/24/2023) * BASIC METABOLIC PANEL (CALCIUM TOTAL)(Performed 10/24/2023) * CBC W AUTO DIFFERENTIAL(Performed 10/24/2023) * EKG 12-LEAD(Performed 10/24/2023) Performed for [place]ushing injury of left forearm, initial encounter Results * XR CHEST 1VW PORTABLE (03/05/2024 2:03 PM CDT) Only the most recent of6 resultswithin the time period is included. Anatomical Region Laterality Modality Chest Radiographic Carin ging 03/05/2024 2:58 PM CDT Narrative 03/07/2024 9:27 PM CDT PROCEDURE: XR CHEST 1VW PORTABLE, DATE/TIME OF EXAM: 03/05/2024 2:03 PM, LOCATION [facility] INDICATION: J90: Pleural effusion, left ADDITIONAL CLINICAL INFORMATION: Ordering Provider Reason For Exam: Repeat CXR to be done at 1:45 Technologist Note: Additional: COMPARISON: Chest radiograph dated 03/05/2024 at 12:19 PM FINDINGS/IMPRESSION: There is no focal consolidation, pleural effusion, or pneumothorax. The superior mediastinal contours and cardiac silhouette are normal. Degenerative changes are noted in the shoulders. Unchanged circular metallic densities superimposing the left axilla and midline upper mediastinum. Report dictated by Jamie Serna MD, (vice president quality improvement). Alex Amezquita MD have personally reviewed and interpreted this examination/study. > Interpreting Provider: Alex Aguilar MD on 03/07/2024 9:27 PM Procedure Note Alex Aguilar MD - 03/07/2024 PROCEDURE: XR CHEST 1VW PORTABLE, DATE/TIME OF EXAM: 03/05/2024 2:03PM, LOCATION [facility] INDICATION: J90: Pleural effusion, left ADDITIONAL CLINICAL INFORMATION: Ordering Provider Reason For Exam: Repeat CXR to be done at 1:45 Technologist Note: Additional: COMPARISON: Chest radiograph dated 03/05/2024 at 12:19 PM FINDINGS/IMPRESSION: There is no focal consolidation, pleural effusion, or pneumothorax. The superior mediastinal contours and cardiac silhouette are normal. Degenerative changes are noted in the shoulders. Unchanged circular metallic densities superimposing the left axilla and midline upper mediastinum. Report dictated by Jamie Serna MD, (vice president quality improvement). Alex Amezquita MD have personally reviewed and interpreted this examination/study. > Interpreting Provider: Alex Aguilar MD on 03/07/2024 9:27 PM Maninder Acuna MD DIAGNOSTIC IMAGING O RDSUNNY * CULTURE ANAEROBE (03/05/2024 12:06 PM CDT) Only the most recent of12 resultswithin the time period is included. Culture No anaerobic organisms isolated TY 03/10/2024 12:[address] [facility] Microbiology PLEURAL FLUID / Unknown Collection / Unknown 03/05/2024 12:06 PM CDT 03/05/2024 12:25 PM CDT Maninder Acuna MD LAB - MICROBIOLOGY O CYNTHIA Performing Organization Address City/[facility]/ZIP Co de Phone Number [facility] [address] [place] [address], [facility] [phone] * CULTURE FLUID+GRAM STAIN (03/05/2024 12:04 PM CDT) Only the most recent of3 resultswithin the time period is included. Culture No growth TY 03/08/2024 5:[address] [facility] Gram Stain No polymorphonuclear cells 03/08/2024 5:[address] [facility] Gram Stain No organisms seen 024 5:[address] [facility] Other PLEURAL FLUID / Unknown Collection / Unknown 03/05/2024 12:04 PM CDT 03/05/2024 12:25 PM CDT Maninder Acuna MD LAB - MICROBIOLOGY O CYNTHIA Performing Organization Address City/[facility]/ZIP Co de Phone Number [facility] [address] [place] [address], [facility] [phone] * CHOLESTEROL BODY FLUID (03/05/2024 12:00 PM CDT) Only the most recent of2 resultswithin the time period is included. Total Cholesterol Body Fluid 115 Not Established for Fluids mg/dL 03/05/2024 3:54 PM CDT [facility] Comment:The analytical perfo rmance of this test has been independently validated by [facility]. A reference range has not been established. Comparison of this result with the concentration in blood, serum or plasma is recommended. Fluid PLEURAL FLUID / Unknown Collection / Unknown 03/05/2024 12:00 PM CDT 03/05/2024 2:29 PM CDT Maninder Acuna MD LAB - BODY FLUID ORD ERABLES Performing Organization Address [facility]/ZIP Co de Phone Number [address] [address], [place] [phone] * PROTEIN BODY FLUID (03/05/2024 12:00 PM CDT) Only the most recent of3 resultswithin the time period is included. [facility] Protein Fluid 4.1 Not Established For Fluids g/dL 03/05/2024 3:54 PM CDT [facility] Comment:The analytical perfo rmance of this test has been independently validated by [facility]. A reference range has not been established. Comparison of this result with the concentration in blood, serum or plasma is recommended. Fluid PLEURAL FLUID / Unknown Collection / Unknown 03/05/2024 12:00 PM CDT 03/05/2024 2:29 PM CDT Maninder Acuna MD LAB - BODY FLUID ORD ERABLES Performing Organization Address [facility]/ZIP Co de Phone Number [address] [address], [place] [phone] * LDH BODY FLUID (03/05/2024 12:00 PM CDT) Only the most recent of3 resultswithin the time period is included. Pathologist [facility] LD Fluid 160 Not Established For Fluids Units/L 03/05/2024 3:54 PM CDT [facility] Comment:The analytical perfo rmance of this test has been independently validated by [facility]. A reference range has not been established. Comparison of this result with the concentration in blood, serum or plasma is recommended. Fluid PLEURAL FLUID / Unknown Collection / Unknown 03/05/2024 12:00 PM CDT 03/05/2024 2:29 PM CDT Maninder Acuna MD LAB - BODY FLUID ORD ERABLES Performing Organization Address City/[facility] Co de Phone Number [address] [address], [place] [phone] * GLUCOSE BODY FLUID (03/05/2024 12:00 PM CDT) Only the most recent of3 resultswithin the time period is included. Glucose Fluid 122 Not Established For Fluids mg/dL 03/05/2024 3:54 PM CDT [facility] Comment:The analytical perfo rmance of this test has been independently validated by [facility]. A reference range has not been established. Comparison of this result with the concentration in blood, serum or plasma is recommended. Fluid PLEURAL FLUID / Unknown Collection / Unknown 03/05/2024 12:00 PM CDT 03/05/2024 2:29 PM CDT Maninder Acuna MD LAB - BODY FLUID ORD ERABLES Performing Organization Address [facility] Co de Phone Number [address] [address], [place] [phone] * AMYLASE BODY FLUID (03/05/2024 12:00 PM CDT) Only the most recent of3 resultswithin the time period is included. Amylase Fluid 44 Not Established For Fluids Units/L 03/05/2024 3:53 PM CDT [facility] Comment:The analytical perfo rmance of this test has been independently validated by [facility]. A reference range has not been established. Comparison of this result with the concentration in blood, serum or plasma is recommended. Fluid PLEURAL FLUID / Unknown Collection / Unknown 03/05/2024 12:00 PM CDT 03/05/2024 2:29 PM CDT Maninder Acuna MD LAB - BODY FLUID ORD ERABLES Performing Organization Address City/[facility]/ZIP Co de Phone Number [address] [address] [phone] * CYTOLOGY NON-PLATFORM LOADER PANEL (STL) (03/05/2024 11:59 AM CDT) Only the most recent of3 resultswithin the time period is included. Case Report Medical Cytology Report Case: [id number] Authorizing Provider: Maninder Acuna MD Collected: 03/05/2024 11:59 AM Ordering Location: [facility] Received: 03/05/2024 01:43 PM Pathologist: Nigel Briscoe MD Specimen: Pleural Fluid, left pleural fluid 03/07/2024 10:31 AM T [facility] Specimen Adequacy Adequate cellularity for evaluation. 03/07/2024 10:31 AM [facility] Final Diagnosis Pleural fluid, thoracentesis, cytology (A): - Reactive mesothelial cells, histocytes, and lymphocytes - No malignancy identified 03/07/2024 10:31 AM [facility] Clinical History The patient is a 78-year-old man with history of heart failure presented with recurrent left pleural effusion, and underwent thoracentesis. 03/07/2024 10:31 AM [facility] Gross Description 1 cytospin Pap stained slide and 1 cellblock from 60cc yellow,fresh fluid 03/07/2024 10:31 AM [facility] Microscopic Description Microscopic examination substantiates the final diagnosis. 03/07/2024 10:31 AM [facility] Pathologist Location at [facility] 03/07/2024 10:31 AM [facility] Disclaimer The performance characteristics of all immunohistochemical and indirect immunofluorescence stains (if any) cited in this report were determined by the Histopathology Laboratory of [facility]. Some of these tests rely on the use of analyte-specific reagents and are subject to specific labeling requirements by the US Food and Drug Administration. Such tests were developed by the Histology Laboratory of [facility] and have not been cleared or approved by the FDA. The FDA has determined that such clearance and approval is not necessary. These tests are used for clinical purposes and should not be regarded as investigational or for research. This laboratory is certified under the Clinical Laboratory Improvement Amendments (CLIA) as qualified to perform high complexity clinical laboratory testing. This case has been personally reviewed and interpreted by the attending (teaching) pathologist. 03/07/2024 10:31 AM CDT [facility] Embedded Images 03/07/2024 10:31 AM CDT [facility] Pathology/Cytolo gy PLEURAL FLUID / Unknown Collection / Unknown 03/05/2024 11:59 AM CDT 03/05/2024 1:43 PM CDT Maninder Acuna MD LAB - PATHOLOGY/CYTO LOGY ORDERABLES [facility] [address] [place], [place] [id number] [place] [address] * DIFFERENTIAL MANUAL FLUID (03/05/2024 11:55 AM CDT) Only the most recent of3 resultswithin the time period is included. Fluid Source Pleural 03/05/2024 4:06 PM [facility] Body Fluid Total Cell Count 100 x10E6/L 03/05/2024 4:06 PM [facility] Neutrophils Fluid Percent 1 % 03/05/2024 4:06 PM [facility] Lymphocytes Fluid Percent 62 % 03/05/2024 4:06 PM [facility] Macrophages Fluid Percent 20 % 03/05/2024 4:06 PM [facility] Comment:Occasional signet ri ng cell present. Eosinophils Fluid Percent 11 % 03/05/2024 4:06 PM [facility] Mesothelial Cells Fluid Percent 6 % 03/05/2024 4:06 PM [facility] Comment:Occasional reactive mesothelial cells present. Fluid PLEURAL FLUID / Unknown Collection / Unknown 03/05/2024 11:55 AM CDT 03/05/2024 2:29 PM CDT Narrative [facility] - 03/05/2024 4:06 PM CDT No reference ranges established for body fluid differential cell counts. The test results must be integrated into the clinical context for interpretation. Maninder Acuna MD LAB - BODY FLUID ORD ERABLES Performing Organization Address [facility]/ZIP Co de Phone Number [facility] [address] [place] [phone], [facility] [phone] * CELL COUNT W DIFFERENTIAL FLUID (03/05/2024 11:55 AM CDT) Only the most recent of3 resultswithin the time period is included. Fluid Source Pleural 03/05/2024 4:06 PM CDT [facility] Fluid Appearance CLEAR 03/05/2024 4:06 PM CDT [facility] Fluid Color YELLOW 03/05/2024 4:06 PM CDT [facility] Total Nucleated Cells Fluid 171 Reference Range Not Established x10E6/L 03/05/2024 4:06 PM CDT [facility] RBC Count Fluid <2,000 Reference Range Not Established x10E6/L 03/05/2024 4:06 PM CDT [facility] Fluid PLEURAL FLUID / Unknown Collection / Unknown 03/05/2024 11:55 AM CDT 03/05/2024 2:29 PM CDT [facility] - 03/05/2024 4:06 PM CDT No reference ranges established for body fluid cell counts. Any reference ranges provided are derived from published literature. The test results must be integrated into the clinical context for interpretation. Maninder Acuna MD LAB - BODY FLUID ORD ERABLES Performing Organization Address [facility] Co de Phone Number [address] [address], [facility] [phone] * PH BODY FLUID ([facility]) (03/05/2024 11:50 AM CDT) Only the most recent of3 resultswithin the time period is included. pH Fluid 7.45 Not Established for Fluids pH 03/05/2024 11:57 AM CDT [facility] Body Fluid Type Pleural Fluid 03/05/2024 11:57 AM CDT [facility] Fluid PLEURAL FLUID / Unknown Collection / Unknown 03/05/2024 11:50 AM CDT 03/05/2024 11:55 AM CDT Maninder Acuna MD LAB - BODY FLUID ORD ERABLES [facility] [place] [address], [facility] [phone] * XR CHEST 2VW (02/29/2024 1:06 PM CDT) Only the most recent of2 resultswithin the time period is included. Anatomical Region Laterality Modality Chest Radiographic Carin ging 02/29/2024 1:31 PM CDT Narrative 02/29/2024 5:48 PM CDT PROCEDURE: XR CHEST 2VW, DATE/TIME OF EXAM: 02/29/2024 1:07 PM, LOCATION [facility] INDICATION: J90: Pleural effusion ADDITIONAL CLINICAL INFORMATION: Ordering Provider Reason For Exam: monitoring of pleural effusion that was drained Technologist Note: Additional: COMPARISON: Chest radiograph from 01/25/2024. FINDINGS/IMPRESSION: There is moderate layering left-sided pleural effusion, increased compared to prior exam. There is likely a component of adjacent atelectasis as well. Previously described left lung interstitial and alveolar infiltrates have improved. No pneumothorax. The cardiomediastinal silhouette is obscured. Degenerative changes are noted in the thoracic spine. > Dictated by Kecia Ludwig MD I, Shannon Ingram MD have personally reviewed and interpreted this examination/study. > Interpreting Provider: Shannon Ingram MD on 02/29/2024 5:48 PM Procedure Note Shannon Ingram MD - 02/29/2024 PROCEDURE: XR CHEST 2VW, DATE/TIME OF EXAM: 02/29/2024 1:07 PM, LOCATION [facility] INDICATION: J90: Pleural effusion ADDITIONAL CLINICAL INFORMATION: Ordering Provider Reason For Exam: monitoring of pleural effusion thatwas drained Technologist Note: Additional: COMPARISON: Chest radiograph from 01/25/2024. FINDINGS/IMPRESSION: There is moderate layering left-sided pleural effusion, increased compared to prior exam. There is likely a componentof adjacent atelectasis as well. Previously described left lunginterstitial and alveolar infiltrates have improved. No pneumothorax. The cardiomediastinal silhouette is obscured. Degenerative changes are noted in the thoracic spine. > Dictated by Kecia Ludwig MD I, Shannon Ingram MD have personally reviewed and interpreted this examination/study. > Interpreting Provider: Shannon Ingram MD on 02/29/2024 5:48 PM Jay Jay Marie MD DIAGNOSTIC IMAGING O RDERATOMASA * PROTEIN TOTAL BLOOD (01/25/2024 4:51 PM CDT) Pathologist [facility] Protein Total 6.6 6.0 - 8.3 g/dL 01/25/2024 5:34 PM CDT [facility] Blood BLOOD SPECIMEN / Unknown Lab Venipuncture / Unknown 01/25/2024 4:51 PM CDT 01/25/2024 5:10 PM CDT Wm Monroy MD LAB - CHEMISTRY NICK SEGURA Performing Organization Address City/[facility]/ZIP Co de Phone Number [facility] [address] [place] [address], [place] [phone] * CULTURE FUNGUS OTHER+FUNGUS SMEAR (01/25/2024 1:54 PM CDT) Only the most recent of11 resultswithin the time period is included. Pathologist [facility] Culture No fungus isolated TY 02/19/2024 9:35 AM CDT [facility] Fungus Stain No Pneumocystis jirovecii 02/19/2024 9:35 AM CDT [facility] Fungus Stain No yeast or hyphae seen 02/19/2024 9:35 AM CDT [facility] Microbiology PLEURAL FLUID / Unknown Collection / Unknown 01/25/2024 1:54 PM CDT 01/25/2024 2:55 PM CDT Wm Monroy MD LAB - MICROBIOLOGY O CYNTHIA [facility] [address] [place] [address], [facility] [phone] * TSH REFLEX FREE T4 (01/25/2024 5:46 AM CDT) TSH 1.208 0.350 - 4.940 uIU/mL 01/25/2024 7:34 AM [facility] Blood BLOOD SPECIMEN / Unknown Lab Venipuncture / Unknown 01/25/2024 5:46 AM CDT 01/25/2024 6:43 AM CDT Wm Monroy MD LAB - CHEMISTRY NICK SEGURA [facility] Organization Address City/State/ZIP Co de Phone Number [facility] [address] [place] [address], [facility] [phone] * (ABNORMAL) CBC W AUTO DIFFERENTIAL (01/25/2024 5:46 AM CDT) Only the most recent of46 resultswithin the time period is included. WBC 6.7 4.0 - 10.7 x10E9/L 01/25/2024 6:47 AM [facility] RBC Count 3.91(L) 4.30 - 5.80 x10E12/L 01/25/2024 6:47 AM [facility] Hemoglobin 10.4(L) 13.3 - 17.5 g/dL 01/25/2024 6:47 AM [facility] Hematocrit 32.6(L) 38.7 - 51.1 % 01/25/2024 6:47 AM [facility] MCV 83.4 80.0 - 98.0 fL 01/25/2024 6:47 AM [facility] MCH 26.6(L) 26.7 - 33.6 pg 01/25/2024 6:47 AM [facility] MCHC 31.9 31.7 - 36.3 g/dL 01/25/2024 6:47 AM [facility] RDW-CV 14.6 11.3 - 14.8 % 01/25/2024 6:47 AM [facility] Platelet Count 296 150 - 420 x10E9/L 01/25/2024 6:47 AM [facility] MPV 10.4 7.8 - 11.4 fL 01/25/2024 6:47 AM [facility] Neutrophil % 55.8 41.0 - 74.0 % 01/25/2024 6:47 AM [facility] Lymphocyte % 29.9 17.0 - 47.0 % 01/25/2024 6:47 AM [facility] Monocyte % 10.2 3.0 - 11.0 % 01/25/2024 6:47 AM [facility] Eosinophil % 3.0 0.0 - 7.0 % 01/25/2024 6:47 AM [facility] Basophil % 0.4 0.0 - 1.6 % 01/25/2024 6:47 AM [facility] Immature Granulocytes % 0.7 0.0 - 1.0 % 01/25/2024 6:47 AM [facility] Neutrophil Absolute 3.73 1.60 - 7.50 x10E9/L 01/25/2024 6:47 AM [facility] Lymphocyte Absolute 2.00 1.00 - 4.40 x10E9/L 01/25/2024 6:47 AM [facility] Monocyte Absolute 0.68 0.15 - 1.00 x10E9/L 01/25/2024 6:47 AM [facility] Eosinophil Absolute 0.20 0.00 - 0.60 x10E9/L 01/25/2024 6:47 AM [facility] Basophil Absolute 0.03 0.00 - 0.13 x10E9/L 01/25/2024 6:47 AM [facility] Blood BLOOD SPECIMEN / Unknown Lab Venipuncture / Unknown 01/25/2024 5:46 AM CDT 01/25/2024 6:43 AM CDT David Daniels MD LAB - HEMATOLOGY ORD ERABLES [facility] [address] [place] [address], [facility] [phone] * (ABNORMAL) BASIC METABOLIC PANEL (CALCIUM TOTAL) (01/25/2024 5:46 AM CDT) Only the most recent of13 resultswithin the time period is included. BUN 10 7 - 26 mg/dL 01/25/2024 7:16 AM [facility] Creatinine 0.94 0.71 - 1.16 mg/dL 01/25/2024 7:16 AM [facility] Sodium 140 136 - 145 mmol/L 01/25/2024 7:16 AM [facility] Potassium 3.5 3.5 - 4.5 mmol/L 01/25/2024 7:16 AM [facility] Chloride 102 98 - 107 mmol/L 01/25/2024 7:16 AM [facility] CO2 30(H) 22 - 29 mmol/L 01/25/2024 7:16 AM [facility] Glucose 113 70 - 115 mg/dL 01/25/2024 7:16 AM [facility] Calcium 9.1 8.4 - 10.2 mg/dL 01/25/2024 7:16 AM [facility] Anion Gap 8 6 - 16 01/25/2024 7:16 AM [facility] BUN/Creatinine Ratio 11 7 - 23 01/25/2024 7:16 AM [facility] Osmolality Calculated 290 275 - 295 mOsm/kg 01/25/2024 7:16 AM [facility] eGFR by CKD-EPI 84(L) >=90 mL/min/1.7 3 m2 01/25/2024 7:16 AM [facility] Blood BLOOD SPECIMEN / Unknown Lab Venipuncture / Unknown 01/25/2024 5:46 AM CDT 01/25/2024 6:43 AM CDT David Daniels MD LAB - CHEMISTRY NICK SEGURA [facility] Organization Address City/State/ZIP Co de Phone Number [address] [address], [facility] [phone] * PHOSPHORUS BLOOD (01/25/2024 5:46 AM CDT) Only the most recent of19 resultswithin the time period is included. Phosphorus 4.4 2.8 - 5.1 mg/dL 01/25/2024 7:16 AM CDT [facility] Blood BLOOD SPECIMEN / Unknown Lab Venipuncture / Unknown 01/25/2024 5:46 AM CDT 01/25/2024 6:43 AM CDT David Daniels MD LAB - CHEMISTRY NICK SEGURA Performing Organization Address City/[facility]/ZIP Co de Phone Number [address] [address], [facility] [phone] * MAGNESIUM BLOOD (01/25/2024 5:46 AM CDT) Only the most recent of42 resultswithin the time period is included. [facility] Magnesium 2.1 1.6 - 2.6 mg/dL 01/25/2024 7:16 AM CDT [facility] Blood BLOOD SPECIMEN / Unknown Lab Venipuncture / Unknown 01/25/2024 5:46 AM CDT 01/25/2024 6:43 AM CDT David Daniels MD LAB - CHEMISTRY NICK SEGURA Performing Organization Address [facility] de Phone Number [address] [address], [facility] [phone] * TROPONIN-I HIGH SENSITIVE REFLEX 1HOUR (01/24/2024 1:00 AM CDT) [facility] Troponin I High Sensitive 5 <=35 ng/L 01/24/2024 1:40 AM CDT [facility] Delta Troponin I HS 01/24/2024 1:40 AM CDT [facility] Comment:Delta value intentio kota not calculated. Baseline to 1 hour specimen collection interval exceeded. Blood BLOOD SPECIMEN / Unknown Venipuncture / Unknown 01/24/2024 1:00 AM CDT 01/24/2024 1:09 AM CDT Radha Masterson PODIATRIST ASSISTANT-FAST FOOD RESTAURANT MANAGER LAB - CHEMIS TRY ORDERABLES Performing Organization Address City/[facility] Co de Phone Number [address] [address], [place] [phone] * (ABNORMAL) ERYTHROCYTE SEDIMENTATION RATE (01/24/2024 1:00 AM CDT) Only the most recent of2 resultswithin the time period is included. Erythrocyte Sedimentation Rate Westergren 42(H) 0 - 20 MM/HR 01/24/2024 1:24 AM CDT [facility] Blood BLOOD SPECIMEN / Unknown Venipuncture / Unknown 01/24/2024 1:00 AM CDT 01/24/2024 1:09 AM CDT Latha Brock MD LAB - HEMATOLOGY ORD ERABLES Performing Organization Address City/[facility]/ZIP Co de Phone Number [address] [address], [place] [phone] * LDH BLOOD (01/24/2024 1:00 AM CDT) Pathologist [facility] LDH Total 131 125 - 243 Units/L 01/24/2024 1:32 AM CDT [facility] Blood BLOOD SPECIMEN / Unknown Venipuncture / Unknown 01/24/2024 1:00 AM CDT 01/24/2024 1:09 AM CDT Latha Brock MD LAB - CHEMISTRY ORDE RABELLE Performing Organization Address City/[facility]/ZIP Co de Phone Number [address] [address], [place] [phone] * CT ANGIO CHEST PULM EMBOLISM (01/23/2024 7:42 PM CDT) Anatomical Region Laterality Modality Chest Computed Tomogra phy 01/23/2024 8:02 PM CDT Impressions 01/23/2024 10:11 PM CDT Impression: 1.No evidence of acute pulmonary embolism. 2.Large left pleural effusion with complete collapse of the left lower lobe and moderate atelectasis of the left upper lobe and rightward mediastinal shift. 3.2.1 x 1.5 cm left adrenal nodule, indeterminate. Please compare with prior outside hospital imaging if available. Otherwise CT/MRI adrenal protocol is recommended for further evaluation.. > Dictated by Christine Atkins MD (vice president quality improvement). I, Dillon Lopez have personally reviewed and interpreted this examination/study. > Interpreting Provider: Dillon Lopez on 01/23/2024 10:11 PM Narrative 01/23/2024 10:11 PM CDT EXAMINATION: CT ANGIO CHEST PULM EMBOLISM DATE/TIME OF EXAM: 01/23/2024 7:43 PM, LOCATION [facility] HISTORY: J90: Pleural effusion, left R06.02: SOB (shortness of breath) left pleural effusion COMPARISON: No prior study is available for comparison. TECHNIQUE: CT of the chest was performed following the uneventful administration of 75 mL of Isovue 370 intravenous contrast according to a pulmonary embolism protocol. Multiplanar reconstructions were created. Findings: Study Quality This examination for the diagnosis of pulmonary embolism is adequate. Pulmonary Arteries: No evidence of acute pulmonary embolism. The main pulmonary artery is mildly dilated, measuring 3.1 cm in diameter, suggestive of pulmonary artery hypertension. Lines and tubes: None. Lower Neck and Axillae: The thyroid gland enhances homogenously. No abnormal supraclavicular or axillary lymphadenopathy is seen. Airway, Lungs and pleura: The trachea is patent. Large left pleural effusion with complete collapse of left lower lobe and moderate atelectasis of the left upper lobe. Calcified granuloma in the atelectatic left lower lobe. Hypoinflated right lung. No suspicious pulmonary nodule in the aerated lungs. No right pleural effusion. No pneumothorax. Heart and Pericardium: The heart is normal in size No pericardial effusion is present. Mild aortic valve calcification. Scattered coronary artery calcifications. Mediastinum and Jaclyn: The mediastinal structures are shifted to the right. Several prominent mediastinal lymph nodes measuring up to 1.0 cm in the prevascular space (series 5 image 129), likely reactive. 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 The thoracic aorta is normal in course and caliber. Bones and Chest Wall: Bone windows demonstrate no suspicious lytic or blastic lesions. No acute fracture. Degenerative changes in the visualized spine. Partially visualized internal fixation plate and screws in the left forearm. Old left rib fracture deformities. Right greater than left and advanced degenerative changes of bilateral glenohumeral joints. Upper Abdomen: There is a 2.1 x 1.5 cm left adrenal nodule (series 5 image 318). The right adrenal gland is normal. A metallic density is identified in the right anterolateral abdominal wall. Mild body wall edema. Procedure Note Dillon Lopez MD - 01/23/2024 EXAMINATION: CT ANGIO CHEST PULM EMBOLISM DATE/TIME OF EXAM: 01/23/2024 7:43 PM, LOCATION [facility] HISTORY: J90: Pleural effusion, left R06.02: SOB (shortness of breath)left pleural effusion COMPARISON: No prior study is available for comparison. TECHNIQUE: CT of the chest was performed following the uneventful administration of 75 mL of Isovue 370 intravenous contrast according toa pulmonary embolism protocol. Multiplanar reconstructions were created. Findings: Study Quality This examination for the diagnosis of pulmonary embolism is adequate. Pulmonary Arteries: No evidence of acute pulmonary embolism. The main pulmonary artery is mildly dilated, measuring 3.1 cm in diameter, suggestive of pulmonary artery hypertension. Lines and tubes: None. Lower Neck and Axillae: The thyroid gland enhances homogenously. No abnormal supraclavicular or axillary lymphadenopathy is seen. Airway, Lungs and pleura: The trachea is patent. Large left pleural effusion with completecollapse of left lower lobe and moderate atelectasis of the left upper lobe. Calcified granuloma in the atelectatic left lower lobe. Hypoinflatedright lung. No suspicious pulmonary nodule in the aerated lungs. No rightpleural effusion. No pneumothorax. Heart and Pericardium: The heart is normal in size No pericardial effusion is present. Mildaortic valve calcification. Scattered coronary artery calcifications. Mediastinum and Jaclyn: The mediastinal structures are shifted to the right. Several prominent mediastinal lymph nodes measuring up to 1.0 cm in the prevascular space (series 5 image 129), likely reactive. 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 The thoracic aorta is normal in course and caliber. Bones and Chest Wall: Bone windows demonstrate no suspicious lytic or blastic lesions. Noacute fracture. Degenerative changes in the visualized spine. Partially visualized internal fixation plate and screws in the left forearm. Oldleft rib fracture deformities. Right greater than left and advanceddegenerative changes of bilateral glenohumeral joints. Upper Abdomen: There is a 2.1 x 1.5 cm left adrenal nodule (series 5 image 318). Theright adrenal gland is normal. A metallic density is identified in the right anterolateral abdominal wall. Mild body wall edema. Impression: 1.No evidence of acute pulmonary embolism. 2.Large left pleural effusion with complete collapse of the left lowerlobe and moderate atelectasis of the left upper lobe and rightwardmediastinal shift. 3.2.1 x 1.5 cm left adrenal nodule, indeterminate. Please compare with prior outside hospital imaging if available. Otherwise CT/MRI adrenal protocol is recommended for further evaluation.. > Dictated by Christine Atkins MD (vice president quality improvement). IDillon have personally reviewed and interpreted this examination/study. > Interpreting Provider: Dillon Lopez on 01/23/2024 10:11 PM L[address] Brock MD CT ORDERABLES * XR HAND LEFT 3VW OR MORE (01/23/2024 5:57 PM CDT) Only the most recent of3 resultswithin the time period is included. Anatomical Region Laterality Modality Wrist / Hand Radiographic Carin ging 01/23/2024 5:56 PM CDT Impressions 01/24/2024 2:24 AM CDT IMPRESSION: 1.Significant edema of the left hand and wrist. 2.Extensive surgical fixation hardware of the distal forearm and wrist. 3.Diffusely demineralized bones but no definitive erosions. Report dictated by Alli Núñez DO (vice president quality improvement). IAlex MD have personally reviewed and interpreted this examination/study. > Interpreting Provider: Alex Aguilar MD on 01/24/2024 2:24 AM Narrative 01/24/2024 2:24 AM CDT PROCEDURE: XR HAND LEFT 3VW OR MORE, DATE/TIME OF EXAM: 01/23/2024 5:57 PM, LOCATION [facility] INDICATION: M79.89: Right leg swelling ADDITIONAL CLINICAL INFORMATION: Ordering Provider Reason For Exam: Assess K-wire Technologist Note: Additional: None. COMPARISON: Multiple prior exams, most recently x-ray of the left forearm dated 12/19/2023. FINDINGS: Extensive surgical fixation hardware is present in the left upper extremity including plates and screws to the distal radius and ulna, a screw within the styloid process of the radius and a pin through the scaphoid and base of the capitate. Metallic beads superimposed the head of the second metacarpal and the space between the third and fourth metacarpal heads. 2 more metallic density beads within soft tissues of the wrist. There are surgical alana over the dorsal hand. The bones are diffusely demineralized. Diffuse edema. Procedure Note Alex Aguilar MD - 01/24/2024 PROCEDURE: XR HAND LEFT 3VW OR MORE, DATE/TIME OF EXAM: 01/23/2024 5:57PM, LOCATION [facility] INDICATION: M79.89: Right leg swelling ADDITIONAL CLINICAL INFORMATION: Ordering Provider Reason For Exam: Assess K-wire Technologist Note: Additional: None. COMPARISON: Multiple prior exams, most recently x-ray of the leftforearm dated 12/19/2023. FINDINGS: Extensive surgical fixation hardware is present in the left upperextremity including plates and screws to the distal radius and ulna, a screwwithin the styloid process of the radius and a pin through the scaphoid andbase of the capitate. Metallic beads superimposed the head of the second metacarpal and the space between the third and fourth metacarpal heads.2 more metallic density beads within soft tissues of the wrist. There are surgical alana over the dorsal hand. The bones are diffusely demineralized. Diffuse edema. IMPRESSION: 1.Significant edema of the left hand and wrist. 2.Extensive surgical fixation hardware of the distal forearm and wrist. 3.Diffusely demineralized bones but no definitive erosions. Report dictated by Alli Núñez DO (vice president quality improvement). I, Alex Aguilar MD have personally reviewed and interpreted this examination/study. > Interpreting Provider: Alex Aguilar MD on 01/24/2024 2:24 AM Latha Brock MD DIAGNOSTIC IMAGING O RDERABLES * VAS RIGHT VENOUS DUPLEX LE (01/23/2024 2:58 PM CDT) Anatomical Region Laterality Modality Lower Extremity Intravascular Ul trasound 01/23/2024 2:34 PM CDT Narrative Procedure Note Luan Reyes MD - 01/24/2024 [facility] ORDERABLES * EKG 12-LEAD (01/23/2024 1:32 PM CDT) Only the most recent of3 resultswithin the time period is included. Ventricular Rate 62 BPM [facility] MUSE Atrial Rate 62 BPM [facility] P-R Interval 146 ms [facility] QRS Duration ms 110 ms [facility] M[facility] Q-T Interval ms 450 ms [facility] M[facility] QTC Calculation (Bezet) 456 ms [facility]USE Calculated P [place] -29 degrees [facility]USE Calculated R [place] -29 degrees [facility] MUSE Calculated T [place] 57 degrees [facility] MUSE Interpretation EKG NORMAL SINUS RHYTHM LEFT ANTERIOR FASICULAR BLOCK ABNORMAL ECG WHEN COMPARED WITH ECG OF 11-NOV-2023 NO SIGNIFICANT CHANGE WAS FOUND Confirmed by fellow TYESHA BERNAL MD ([id number]) on 01/25/2024 6:55:57 AM Confirmed by SHARON RIOS MD ([id number]) on 01/25/2024 11:28:56 PM [facility] MUSE 01/23/2024 1:32 PM CDT 01/25/2024 11:28 PM CDT [facility]L ES [facility] * PT-INR [facility] (01/23/2024 1:28 PM CDT) Only the most recent of14 resultswithin the time period is included. PT 13.1 12.1 - 14.8 Seconds 01/23/2024 2:10 PM CDT [facility] INR 1.0 See Comment 01/23/2024 2:10 PM CDT [facility] Comment:The suggested therap eutic range for standard coumadin (warfarin) therapy is an INR of 2.0-3.0. For high-risk patients (Mechanical Mitral Valve Prosthesis, etc.), the suggested prophylactic therapeutic range is an INR of 2.5-3.5. Blood BLOOD SPECIMEN / Unknown Venipuncture / Unknown 01/23/2024 1:28 PM CDT 01/23/2024 1:38 PM CDT [facility] - COAGUL ATION ORDERABLES Performing Organization Address City/[facility]/ZIP Co de Phone Number [address] [address], [facility] [phone] * TROPONIN-I HIGH SENSITIVE BASELINE + 1HR (01/23/2024 1:28 PM CDT) Troponin I High Sensitive 6 <=35 ng/L 01/23/2024 2:23 PM CDT [facility] Blood BLOOD SPECIMEN / Unknown Venipuncture / Unknown 01/23/2024 1:28 PM CDT 01/23/2024 1:41 PM CDT Radha Masterson [facility] LAB - CHEMIS TRY ORDERABLES Performing Organization Address [facility]/ZIP Co de Phone Number [address] [address], [facility] [phone] * (ABNORMAL) B-TYPE NATRIURETIC PEPTIDE (01/23/2024 1:28 PM CDT) BNP 431(H) <100 pg/mL 01/23/2024 2:22 PM CDT [facility] Comment: A decision threshold of 100 pg/mL has been demonstrated to provide the maximal combination of sensitivity, specificity and predictive value for the diagnosis of congestive heart failure (CHF). Virtually all patients with no evidence of CHF have BNP values less than 100 pg/mL. A BNP value greater than 100 pg/mL is consistent with the diagnosis of CHF in the appropriate clinical setting. In a study of 693 patients (male and female) with diagnosed CHF, the following values were determined based on the NYHA functional classification system: NYHA Functional Class Mean Valule (pg/mL) % >100 pg/mL I 320 58.1 II 432 73.0 III 656 79.0 IV 1635 98.3 Blood BLOOD SPECIMEN / Unknown Venipuncture / Unknown 01/23/2024 1:28 PM CDT 01/23/2024 1:41 PM CDT Radha Masterson PODIATRIST ASSISTANT-FAST FOOD RESTAURANT MANAGER LAB - CHEMIS TRY ORDERABLES [facility] [address] [place] [address], [facility] [phone] * (ABNORMAL) COMPREHENSIVE METABOLIC PANEL (01/23/2024 1:28 PM CDT) Only the most recent of29 resultswithin the time period is included. BUN 10 7 - 26 mg/dL 01/23/2024 2:19 PM [facility] Creatinine 0.97 0.71 - 1.16 mg/dL 01/23/2024 2:19 PM [facility] Sodium 144 136 - 145 mmol/L 01/23/2024 2:19 PM [facility] Potassium 3.5 3.5 - 4.5 mmol/L 01/23/2024 2:19 PM [facility] Chloride 103 98 - 107 mmol/L 01/23/2024 2:19 PM [facility] CO2 28 22 - 29 mmol/L 01/23/2024 2:19 PM [facility] Glucose 106 70 - 115 mg/dL 01/23/2024 2:19 PM [facility] Calcium 9.7 8.4 - 10.2 mg/dL 01/23/2024 2:19 PM [facility] Protein Total 8.0 6.0 - 8.3 g/dL 01/23/2024 2:19 PM [facility] Albumin 3.8 3.4 - 5.0 g/dL 01/23/2024 2:19 PM [facility] Bilirubin Total 0.4 0.2 - 1.2 mg/dL 01/23/2024 2:19 PM [facility] Alkaline Phosphatase 151(H) 40 - 150 U/L 01/23/2024 2:19 PM [facility] ALT 15 5 - 55 U/L 01/23/2024 2:19 PM [facility] AST 22 5 - 34 U/L 01/23/2024 2:19 PM [facility] Anion Gap 13 6 - 16 01/23/2024 2:19 PM [facility] BUN/Creatinine Ratio 10 7 - 23 01/23/2024 2:19 PM T [facility] Osmolality Calculated 297(H) 275 - 295 mOsm/kg 01/23/2024 2:19 PM [facility] Albumin/Globulin Ratio 0.9(L) 1.1 - 2.3 01/23/2024 2:19 PM [facility] eGFR by CKD-EPI 81(L) >=90 mL/min/1.7 3 m2 01/23/2024 2:19 PM [facility] Blood BLOOD SPECIMEN / Unknown Venipuncture / Unknown 01/23/2024 1:28 PM CDT 01/23/2024 1:41 PM CDT Radha Masterson PODIATRIST ASSISTANT-FAST FOOD RESTAURANT MANAGER LAB - CHEMIS TRY ORDERABLES [facility] [address] [place] [address], [facility] [phone] * XR FOREARM LEFT 2VW OR MORE (12/19/2023 11:02 AM HIGH SCHOOL ADMISSIONS REPRESENTATIVE) Only the most recent of2 resultswithin the time period is included. Anatomical Region Laterality Modality Upper Extremity Radiographic Carin ging 12/19/2023 1:46 PM HIGH SCHOOL ADMISSIONS REPRESENTATIVE Impressions 12/19/2023 11:07 PM [employer]IGH S[employer]OL ADMISSIONS REPRESENTATIVE IMPRESSION: 1.Internal fixation of an intra-articular distal radial fracture with improved alignment. 2.Interval internal fixation of the scaphoid with improved alignment. 3.Redemonstrated internal fixation of the ulna and radial shaft fractures with unchanged alignment. Report dictated by Beau Ford MD (vice president quality improvement). I, Alex Aguilar MD have personally reviewed and interpreted this examination/study. > Interpreting Provider: Alex Aguialr MD on 12/19/2023 11:07 PM Narrative 12/19/2023 11:07 PM HIGH SCHOOL ADMISSIONS REPRESENTATIVE PROCEDURE: XR FOREARM LEFT 2VW OR MORE, DATE/TIME OF EXAM: 12/19/2023 11:02 AM, LOCATION [facility] INDICATION: S57.82XA: Crushing injury of left forearm, initial encounter COMPARISON: Left forearm radiograph 2023. FINDINGS: Redemonstrated internal fixation of the comminuted ulnar and radial shaft fractures with plates and screws. Interval fixation of both an intra-articular distal radial fracture with one screw as well as the scaphoid with a K wire and screw, both with improved alignment. The scapholunate distance is within normal limits. Numerous surgical clips are seen throughout the forearm and dorsal aspect of the hand. Soft tissue swelling is present. Procedure Note Alex Aguilar MD - 12/19/2023 PROCEDURE: XR FOREARM LEFT 2VW OR MORE, DATE/TIME OF EXAM: 12/19/2023 11:02 AM, LOCATION [facility] INDICATION: S57.82XA: Crushing injury of left forearm, initial encounter COMPARISON: Left forearm radiograph 2023. FINDINGS: Redemonstrated internal fixation of the comminuted ulnar and radialshaft fractures with plates and screws. Interval fixation of both an intra-articular distal radial fracture with one screw as well as the scaphoid with a K wire and screw, both with improved alignment. The scapholunate distance is within normal limits. Numerous surgical clipsare seen throughout the forearm and dorsal aspect of the hand. Soft tissue swelling is present. IMPRESSION: 1.Internal fixation of an intra-articular distal radial fracture with improved alignment. 2.Interval internal fixation of the scaphoid with improved alignment. 3.Redemonstrated internal fixation of the ulna and radial shaftfractures with unchanged alignment. Report dictated by Beau Ford MD (vice president quality improvement). I, Alex Aguilar MD have personally reviewed and interpreted this examination/study. > Interpreting Provider: Alex Aguilar MD on 12/19/2023 11:07 PM Tashi Matthew MD DIAGNOSTIC IMAGING O RDERABLES * APHERESIS/TRANSFUSION ORDER (12/04/2023 4:29 PM HIGH SCHOOL ADMISSIONS REPRESENTATIVE) Narrative 12/04/2023 4:29 PM HIGH SCHOOL ADMISSIONS REPRESENTATIVE Ordered by an unspecified provider. Scanned Document NURSING - VITAL SIGN S AND ASSESSMENT * SARS-COV-2 (COVID-19) RAPID (12/01/2023 3:36 PM HIGH SCHOOL ADMISSIONS REPRESENTATIVE) COVID-19 PCR Not detected Not detected 12/01/19 24 4:19 PM HIGH SCHOOL ADMISSIONS REPRESENTATIVE [facility] Microbiology SPECIMEN FROM NASOPHARYNGEAL STRUCTURE / Unknown Collection / Unknown 12/01/2023 3:36 PM HIGH SCHOOL ADMISSIONS REPRESENTATIVE 12/01/2023 3:42 PM HIGH SCHOOL ADMISSIONS REPRESENTATIVE Narrative [facility] - 12/01/2023 4:19 PM HIGH SCHOOL ADMISSIONS REPRESENTATIVE The [employer] Xpert Xpress SARS-COV-2 has been authorized by the Food and Drug Administration (FDA) under an Emergency Use Authorization (EUA). This test has been validated in accordance with the FDA's guidance document Policy for Diagnostic Testing in Laboratories Certified to perform High Complexity Testing under CLIA prior to Emergency Use Authorization for Coronavirus Disease-2019 during the Public Health Emergency issued on December 21, 2019. FDA independent review of this validation is pending. This test is only authorized for the duration of the time the declaration that circumstances exist justifying the authorization of emergency use of in vitro diagnostic tests for detection of SARS-COV-2 virus and/or diagnosis of COVID-19 infection under 564(b) (1) of the Act. 21 U.S.C. 360bbb-3 (b) (1), unless the authorization is terminated or revoked sooner. Fact Sheets for this EUA assay are available upon request. Preethi Pappas DO LAB - MICROBIOLOGY O RDERABLES Performing Organization Address City/State/[facility] Co de Phone Number [facility] [address] [place] [phone], [facility] [phone] * PTT [facility] (11/25/2023 4:07 AM HIGH SCHOOL ADMISSIONS REPRESENTATIVE) Only the most recent of15 resultswithin the time period is included. APTT 33.1 23.0 - 38.4 Seconds 11/25/2023 4:42 AM HIGH SCHOOL ADMISSIONS REPRESENTATIVE [facility] Comment:Suggested therapeuti c range for full dose I.V. unfractionated heparin therapy for venous thromboembolism is 71 to 109 seconds. Blood BLOOD SPECIMEN / Unknown Venipuncture / Unknown 11/25/2023 4:07 AM HIGH SCHOOL ADMISSIONS REPRESENTATIVE 11/25/2023 4:14 AM HIGH SCHOOL ADMISSIONS REPRESENTATIVE Jody Lockhart MD LAB - COAGULATION OR DERABLES Performing Organization Address City/[facility]/ZIP Co de Phone Number [facility] [address] [place] [phone], [place] [phone] * (ABNORMAL) PREALBUMIN (11/25/2023 4:07 AM HIGH SCHOOL ADMISSIONS REPRESENTATIVE) Only the most recent of5 resultswithin the time period is included. Prealbumin 12(L) 16 - 45 mg/dL 11/25/2023 4:48 AM HIGH SCHOOL ADMISSIONS REPRESENTATIVE [facility] Blood BLOOD SPECIMEN / Unknown Venipuncture / Unknown 11/25/2023 4:07 AM HIGH SCHOOL ADMISSIONS REPRESENTATIVE 11/25/2023 4:12 AM HIGH SCHOOL ADMISSIONS REPRESENTATIVE Tashi Matthew MD LAB - CHEMISTRY ORDE IMELDA Performing Organization Address [facility]/ZIP Co de Phone Number [address] [address], [place] [phone] * PREPARE (CROSSMATCH) RBC UNIT(S), 1 Units (11/21/2023 1:17 AM [employer] ADMISSIONS REPRESENTATIVE) Only the most recent of9 resultswithin the time period is included. Unit Description N/A [facility] Blood Bank BLOOD SPECIMEN / Unknown 11/17/2023 3:09 AM [employer] ADMISSIONS REPRESENTATIVE Jody Lockhart MD LAB - BLOOD BANK ORD ERABLES Performing Organization Address City/[facility]/ZIP Co de Phone Number [facility] [address] [place] [address], [place] [phone] * (ABNORMAL) GLUCOSE - POINT OF CARE (11/20/2023 11:43 PM [employer] ADMISSIONS REPRESENTATIVE) Only the most recent of11 resultswithin the time period is included. Glucose WB/POC 150(H) 70 - 115 mg/dL 11/21/2023 8:06 AM [employer] ADMISSIONS REPRESENTATIVE [facility] Specimen Type Cap Fingerstick 2023 8:06 AM [employer] ADMISSIONS REPRESENTATIVE [facility] Blood BLOOD SPECIMEN / Unknown 11/20/2023 11:43 PM [employer] ADMISSIONS REPRESENTATIVE 11/21/2023 8:06 AM [employer] ADMISSIONS REPRESENTATIVE Maninder Acuna MD LAB - POINT OF CARE ORDERABLES Performing Organization Address City/[facility]/ZIP Co de Phone Number [address] [address], [place] [phone] * CK BLOOD (11/19/2023 10:03 AM [employer] ADMISSIONS REPRESENTATIVE) Only the most recent of5 resultswithin the time period is included. CK Total 45 30 - 200 U/L 11/19/2023 10:38 AM [employer] ADMISSIONS REPRESENTATIVE [facility] Blood BLOOD SPECIMEN / Unknown Venipuncture / Unknown 11/19/2023 10:03 AM [employer] ADMISSIONS REPRESENTATIVE 11/19/2023 10:12 AM [employer] ADMISSIONS REPRESENTATIVE Jody Lockhart MD LAB - CHEMISTRY ORDE RABLES [address] [address], [place] [phone] * TRANSFUSE RED BLOOD CELL LEUKOREDUCED UNIT(S) (11/18/2023 12:16 PM [employer] ADMISSIONS REPRESENTATIVE) Jody Lockhart MD NURSING - BLOOD PROD TRANSFUSION * ECHO COMPLETE W CONTRAST (11/18/2023 10:57 AM [employer] ADMISSIONS REPRESENTATIVE) BSA 2.6557008 m2 SSM CV FUJ I PACS LV biplane EF 72 52 - 72 % SSM CV FUJI PACS LV A2C EF 70 48 - 76 % SSM CV FUJ I PACS LV A4C EF 74 46 - 74 % SSM CV FUJ I PACS LV stroke vol BP 100.6 mL SSM CV FUJI PACS LV stroke vol BP index 47.3 mL/m2 SSM CV FUJI PACS LVOT stroke vol 77.25 mL SSM CV FUJI PACS LVOT stroke vol index 36.31 mL/m2 SSM CV FUJI PACS LV stroke vol 2D teich 112.696 ml SSM CV FUJI PACS LV Stroke Index 2D Teich 52.96 mL/m2 SSM CV FUJI PACS LV stroke vol index A4C MOD 107.671 ml/m2 SSM CV FUJI PACS LVIDd 6.02 4.2 - 5.8 cm SSM CV FUJI PACS LVIDs 3.98 2.5 - 4.0 cm SSM CV FUJI PACS IVSd 2D 0.931 0.6 - 1 cm SSM CV FUJI PACS LVPWd 0.94 0.6 - 1 cm SSM CV FUJI PACS Fractional Shortening 2D 34 28 - 44 % SSM CV FUJI PACS LV ESV BP 39.081 21 - 61 mL SSM CV FUJI PACS LV ESV index BP 18.4 11 - 31 mL/m2 SSM CV FUJI PACS LV ESV A2C 38.222 15 - 75 mL SSM CV FUJI PACS LV ESV index A2C 17.96 9 - 37 mL/m2 SSM CV FUJI PACS LV EDV BP 139.633 62 - 150 mL SSM CV FUJI PACS LV ESV A4C 37.051 22 - 78 mL SSM CV FUJI PACS LV ESV index A4C 17.41 12 - 40 mL/m2 SSM CV FUJI PACS LV EDV index BP 65.6 34 - 74 mL/m2 SSM CV FUJI PACS LV EDV A2C 124.593 59 - 175 mL SSM CV FUJI PACS LV EDV index A2C 58.56 31 - 87 mL/m2 SSM CV FUJI PACS LV EDV A4C 145.894 mL SSM CV FU JI PACS LV ESV 2D 68.959 21 - 61 mL SSM CV FUJI PACS LV EDV index A4C 68.57 37 - 93 mL/m2 SSM CV FUJI PACS LV ESV index 2D 32.41 11 - 31 mL/m2 SSM CV FUJI PACS LV EDV 2D 181.656 62 - 150 mL SSM CV FUJI PACS LV EDV index 2D 85.37 34 - 74 mL/m2 SSM CV FUJI PACS LVOT diam 1.7 cm SSM CV FUJ I PACS LVOT area 2.38 cm2 SSM CV FUJ I PACS LV RWT 0.311 SSM CV FUJ I PACS LV [place]nutson A2C 8.277 cm SSM CV F UJI PACS LV [place] A4C 8.959 cm SSM CV F UJI PACS IVS/LVPW 0.995 SSM CV FUJ I PACS LV mass 2D 159.3014 96 - 200 g SSM CV FUJI PACS LV mass index 2D 74.87 50 - 102 g/m2 SSM CV FUJI PACS MV E pk dary 113.657 cm/s SSM CV F UJI PACS MV avg E/e' ratio 18.00 SS M CV FUJI PACS MV A pk dary 83.615 cm/s SSM CV F UJI PACS MV E A ratio 1.36 SSM CV FUJI PACS MV E' lateral dary 6.453 cm/s SS M CV FUJI PACS MV DT 188 ms SSM CV FUJ I PACS MV E' septal dary 6.179 cm/s SSM CV FUJI PACS MV E/e' septal 18.394 SSM C V FUJI PACS MV E/e' lateral 17.613 SSM CV FUJI PACS LA vol BP 71.846 mL SSM CV FUJ I PACS TR pk dary 311.9 cm/s SSM CV [facility] I PACS P vein A dary 47.3 cm/s SSM CV FUJI PACS P vein A duration 183 msec SS M CV FUJI PACS P vein S/D ratio 1.11 SSM CV FUJI PACS LVOT pk dary 1.35 m/s SSM CV F UJI PACS LVOT mn dary 0.88 m/s SSM CV F UJI PACS LVOT mn grad 3.7 mmHg SSM CV FUJI PACS LVOT Cardiac Output 4.365 l/min SSM CV FUJI PACS LVOT Cardiac Index 2.05 l/min/m2 SSM CV FUJI PACS Qp:Qs 1.36 SSM CV FUJ I PACS LA vol index 33.8 16 - 34 mL/m2 SSM CV FUJI PACS LA size 3.799 3.0 - 4.0 cm SSM CV FUJI PACS LA vol BP A-L 78.112 mL SSM CV FUJI PACS RVIDd 3.1 cm SSM CV FUJ I PACS RVOT diam Doppler 2.382 cm SS M CV FUJI PACS RVOT area Doppler 4.46 10 - 24 cm2 SSM CV FUJI PACS RVOT stroke vol 104.88 cm3 SSM CV FUJI PACS RVOT VTI 23.526 cm SSM CV [facility] I PACS TV S' dary 12.052 cm/s SSM CV [facility] I PACS TAPSE 2.631 1.7 cm SSM CV [facility] I PACS RVOT pk dary 0.84 m/s SSM CV F UJI PACS RA area 26.622 cm2 SSM CV [facility] I PACS AV mn grad 9 mmHg SSM CV FU JI PACS AV pk grad 19 mmHg SSM CV FU JI PACS AV mn dary 1.44 m/s SSM CV [facility] I PACS AV pk dary 2.34 m/s SSM CV [facility] I PACS AV VTI 53.166 cm SSM CV [facility] I PACS LVOT pk grad 7.255 mmHg [facility] LVOT VTI 32.486 cm SSM CV [facility] I PACS AV area cont VTI 1.5 cm2 SSM CV FUJI PACS AV area pk dary 1.4 cm2 SSM C V [facility] AV Doppler dary index pk dary 0.576 SSM CV [facility] PACS Dimensionless Index 0.611 S[facility] P[facility] MV pk dary regurg 444.842 cm/s SSM [facility] P[facility] MV mn grad 2 mmHg SSM CV FU JI PACS MV pk grad 6 mmHg SSM CV FU JI PACS MV mn dary 0.65 m/s SSM CV [facility] I PACS MV pk dary 122.421 cm/s SSM CV [facility] I PACS MV PHT 51 ms SSM CV [facility] I PACS MV area PHT 4.35 cm2 SSM CV F UJI PACS MV area cont eq 1.85 cm2 SSM CV FUJI PACS MV VTI 41.869 cm SSM CV [facility] I PACS MV decel slope 605.067 cm/s2 SSM C V FUJI PACS TR pk grad 39 mmHg SSM CV FU JI PACS RVOT mn grad 2 mmHg [facility] CV [facility] P[facility] RVOT pk grad 3 mmHg SSM CV FUJI PACS PV area cont eq 3.6 cm2 SSM CV FUJI PACS PV mn grad 3 mmHg SSM CV FU JI PACS PV pk dary 110.184 cm/s SSM CV FUJ I PACS PV pk grad 5 mmHg SSM CV FU JI PACS PV VTI 29.004 cm SSM CV FUJ I PACS PV mn dary 83.287 cm/s SSM CV FUJ I PACS Ascending aorta 3.00 cm SSM CV FUJI PACS RV stroke vol 104.83 mL SSM CV FUJI PACS LA ESV A4C MOD Index 39 ml/m2 SSM CV FUJI PACS LA ESV A2C MOD Index 28 ml/m2 SSM CV FUJI PACS [id number] 6.27 cm SSM CV FUJ I PACS [id number] 6.809 cm SSM CV FUJ I PACS Prox Asc Ao Diameter Index 1.409 cm SSM CV FUJI PACS LVIDs index 1.87 1.3 - 2.1 cm/m2 SSM CV FUJI PACS LV LVIDd index 2.83 2.2 - 3.0 cm/m2 SSM CV FUJI PACS sPAP 47.0 mmHg SSM CV FUJ I PACS Anatomical Region Laterality Modality Ultrasound Narrative 11/19/2023 4:07 PM [employer] ADMISSIONS REPRESENTATIVE Study Details: Study quality was fair. Left Ventricle: Left ventricle size is upper limits of normal. Normal wall thickness. Normal systolic function with a visually estimated EF of 65 - 70%. Normal wall motion. Grade II diastolic dysfunction with elevated left atrial pressure. Right Ventricle: Right ventricle size is normal. Normal systolic function. Aortic Valve: Not well visualized. Valve structure is trileaflet. Mildly thickened leaflets. Mildly calcified leaflets. Mildly restricted motion. No regurgitation. Mild stenosis. AV mean gradient is 9 mmHg. AV peak velocity is 2.34 m/s. AV area by continuity VTI is 1.5 cm2. Tricuspid Valve: Trace regurgitation. The pulmonary artery systolic pressure is mildly elevated. Estimated sPAP is 47.0 mmHg. IVC/SVC: IVC diameter is greater than 21 mm and decreases greater than 50% during inspiration; therefore the estimated right atrial pressure is intermediate (~8 mmHg). Pericardium: Trivial pericardial effusion present. Left Ventricle Left ventricle size is upper limits of normal. Normal wall thickness. Normal systolic function with a visually estimated EF of 65 - 70%. Normal wall motion. Grade II diastolic dysfunction with elevated left atrial pressure. Right Ventricle Right ventricle size is normal. Normal systolic function. Left Atrium Left atrium is mildly dilated. Left atrium volume index is 33.8 mL/m2. Right Atrium Right atrium is dilated. IVC/SVC IVC diameter is greater than 21 mm and decreases greater than 50% during inspiration; therefore the estimated right atrial pressure is intermediate (~8 mmHg). Mitral Valve Not well visualized. Valve structure is normal. No restricted motion. Trace regurgitation. No stenosis. Tricuspid Valve Valve structure is normal. No restricted motion. Trace regurgitation. The pulmonary artery systolic pressure is mildly elevated. Estimated sPAP is 47.0 mmHg. No stenosis. Aortic Valve Not well visualized. Valve structure is trileaflet. Mildly thickened leaflets. Mildly calcified leaflets. Mildly restricted motion. No regurgitation. Mild stenosis. AV mean gradient is 9 mmHg. AV peak velocity is 2.34 m/s. AV area by continuity VTI is 1.5 cm2. Pulmonic Valve Valve structure is normal. No restricted motion. No regurgitation. No stenosis. Ascending Aorta Normal sized sinus of Valsalva (aortic root) and ascending aorta. Pericardium Trivial pericardial effusion present. Study Details Study quality was fair. A complete 2D, color Doppler, spectral Doppler and M- mode echocardiogram was performed. The apical, parasternal, subcostal and suprasternal views were obtained. Definity ultrasound enhancing agent used. Technical difficulties due to patient positioning. Procedure Note Juan Manuel Sanchez MD - 11/19/2023 Study Details: Study quality was fair. Left Ventricle: Left ventricle size is upper limits of normal. Normalwall thickness. Normal systolic function with a visually estimated EF of65 - 70%. Normal wall motion. Grade II diastolic dysfunction with elevatedleft atrial pressure. Right Ventricle: Right ventricle size is normal. Normal systolicfunction. Aortic Valve: Not well visualized. Valve structure is trileaflet.Mildly thickened leaflets. Mildly calcified leaflets. Mildly restrictedmotion. No regurgitation. Mild stenosis. AV mean gradient is 9 mmHg. AVpeak velocity is 2.34 m/s. AV area by continuity VTI is 1.5 cm2. Tricuspid Valve: Trace regurgitation. The pulmonary artery systolicpressure is mildly elevated. Estimated sPAP is 47.0 mmHg. IVC/SVC: IVC diameter is greater than 21 mm and decreases greater than50% during inspiration; therefore the estimated right atrial pressure isintermediate (~8 mmHg). Pericardium: Trivial pericardial effusion present. Tashi Matthew MD ECHO CUPID * (ABNORMAL) BLOOD GAS+COOX+LYTES+METAB ARTERIAL POCT (11/17/2023 1:57 PM [employer] ADMISSIONS REPRESENTATIVE) Only the most recent of4 resultswithin the time period is included. pH Arterial 7.42 7.35 - 7.45 pH 11/17/2023 1:57 PM [facility] pO2 Arterial 105(H) 80 - 100 mmHg 11/17/2023 1:57 PM [facility] pCO2 Arterial 40 35 - 45 mmHg 1:57 PM [facility] HCO3 Arterial 25.9 20.0 - 30.0 mmol/L 11/17/2023 1:57 PM [facility] BE Arterial 1.3 -2.0 - 2.0 mmol/L 11/17/2023 1:57 PM [facility] Oxyhemoglobin Arterial 96.4 % 11/17/2023 1:57 PM [facility] Dexoyhemoglobin (HHB) % <1.0 % 11/17/2023 1:57 PM [facility] Methemoglobin 0.8 0.0 - 2.0 % 11/17/2023 1:57 PM [facility] Carboxyhemoglobin 1.9 0.0 - 2.0 % 2023 1:57 PM [facility] Comment:Carboxyhemoglobin No rmal Concentration: Non-smokers: 0-2%; Smokers: 0- 9%; Toxic: >20% O2 Content Arterial 11.6 Interpret within clinical context ml/dL 11/17/2023 1:57 PM [facility] Hemoglobin by COOX 8.4(L) 12.0 - 17.6 g/dL 11/17/2023 1:57 PM [facility] O2 Saturation Arterial 99 90 - 100 % 11/17/2023 1:57 PM [facility] Sodium Whole Blood 141 135 - 145 mmol/L 11/17/2023 1:57 PM [facility] Potassium Whole Blood 3.4(L) 3.5 - 5.5 mmol/L 11/17/2023 1:57 PM [facility] Chloride WB 107 78 - 107 mmol/L 11/17/2023 1:57 PM [facility] Calcium Ionized 1.22 mmol/L 1:57 PM [facility] Ionized Calcium pH Adjusted 1.23 1.19 - 1.34 mmol/L 11/17/2023 1:57 PM [facility] Anion Gap (AG) Arterial 8 6 - 16 mmol/L 11/17/2023 1:57 PM [facility] Glucose WB 176(H) 70 - 115 mg/dL 11/17/2023 1:57 PM [facility] Lactic Acid Whole Blood 1.6 <=2.0 mmol/L 11/17/2023 1:57 PM [facility] Blood, arterial ARTERIAL BLOOD SPECIMEN / Unknown 11/17/2023 1:57 PM [employer] ADMISSIONS REPRESENTATIVE 11/17/2023 1:58 PM [employer] ADMISSIONS REPRESENTATIVE Tashi Matthew MD LAB - POINT OF CARE ORDERABLES [facility] [address] [place] [address], [facility] [phone] * ADAL FOR ANESTHESIA (11/17/2023 10:12 AM [employer] ADMISSIONS REPRESENTATIVE) Narrative Gómez Foster MD - 11/17/2023 10:12 AM [employer] ADMISSIONS REPRESENTATIVE Gómez Foster MD 11/17/2023 4:34 PM Transesophageal Echocardiogram Procedure Note: Procedure: Transesophageal Echocardiogram Patient Location: OR Pre-Procedure Section: Indications: assessment of surgical repair, volume assessment, defect repair evaluation, confirmation of pre-procedure diagnosis, valvular assessment, hemodynamic monitoring, ventricular function and assessment of ascending aorta Pre-Anesthesia Checklist: Patient identified, Chart reviewed, Risks and benefits discussed, Patient evaluated, IV Checked, Time-out performed, Informed consent obtained and Monitors and equipment Intubated? Yes Heart Visualized? Yes Probe Insertion: easy Probe Type: 3D Modalities: 3D, color flow mapping, continuous wave Doppler and pulse wave Doppler Procedure Start Time: 11/17/2023 8:09 AM. Procedure End Time: 11/17/2023 3:29 PM. Procedure Total Time: 440 minutes. Staff Section Anesthesia Provider: Gómez Foster MD, Performed the procedure Other Findings/Summary: INTRA-OP ADAL EXAM. IMAGES SHOULD BE ACCESSIBLE IN RESULTS UNDER ECHO ANES ADAL INTRAOP . Surgeon: Indication:Intra-op: Holo-systolic murmur in patient for DEBRIDEMENT LEFT FOREARM (Left), reconstruction of left arm with free tissue transfer, possible skin graft (Left) and c/o S.O.B. ADAL Probe Insertion:Uneventful INTRA-OP ADAL EXAM 01. The examination is technically adequate. 02. Majority of heart structure observed. 03. Left Ventricle: Mild Concentric Left Ventricular Hypertrophy. Dilated Cardiomyopathy. Overall, there is normal LV systolic function with an ejection fraction about 60-65%. No Spontaneous Echo Contrast. Intra-Cavity Size by M-Mode: 5.49 cm in diastole and 3.08 cm in systole. 04. Segmental Wall Motion Abnormality: None 05. Right atrium: Function: Normal. No Spontaneous Echo Contrast. Size: 4.65 cm in diastole and 3.81 cm in systole. 06. Right ventricle: Function: Normal. TAPSE by M-Mode: 3.11 cm. No Spontaneous Echo Contrast. Size: 3.82 cm in diastole and 2.82 cm in systole. 07. Left atrium: Function: Normal. No Spontaneous Echo Contrast. Size in two perpendicular axes - Med-Lat [place]: 4.64 cm. A-P [place]: 4.34 cm. 08. Aortic valve and root are structurally normal. Trileaflet valve with adequate cusp separation of 1.66 cm in long axis view, which showed mild aortic valve regurgitation by color flow Doppler. Mild aortic stenosis. Peak Gradient: 22 mm of Hg and Mean Gradient: 11 mm of Hg. 09. Mitral valve is without much scarring, minimal thickening, with mild mitral valve regurgitation by color flow Doppler which revealed a central jet, not traveling to the opposite atrial wall. No mitral valve prolapse was noted. No torn chordae. No pulmonary vein flow reversal. Diameter of mitral valve annulus in commissural view: 3.09 cm and 2.87 cm in long axis view. 10. Tricuspid valve is in normal position, with mild tricuspid valve regurgitation by color flow Doppler. Valve annulus: 3.73 cm. 11. Pulmonic valve demonstrated trace pulmonary valve regurgitation. 12. Interatrial septum demonstrates no [id number] color flow to suggest a patent foramen ovale. 13. Pulmonary veins demonstrate systolic blunting, mderate diastolic dysfunction. 14. Left atrial appendage shows no evidence of left heart thrombus. Left atrial appendage shows normal emptying velocities with no Spontaneous Echo Contrast.. 15. LVOT and Ascending Aorta: LVOT diameter 2.10 cm. Aortic annulus (2.29 cm), Sinus of Valsalva (2.76 cm), Sinotubular junction (2.57 cm). The proximal ascending aorta (2.37 cm), appeared to be normal without pseudoaneurysm, coarctation or dissection. Grade 2/5 aortic atheroma seen in ascending aorta. Diameter of ascending aorta: cm. 16. Descending aorta: Grade 2/5 aortic atheroma seen. Diameter of descending aorta: 2.99 cm X 2.80 cm 17. Pericardial Effusion: None identified. 18. Left heart thrombus: Not evident. 19. Pleural Effusions: Large Right pleural effusion (6.88 cm) and Moderate Left Pleural Effusion (3.66 cm). ADAL Probe Removal:Uneventful Gómez Foster MD Gómez Foster MD GENERAL ANESTHESIA O RDERABLES * BLOOD GAS ART+LYTES+METAB+COOX POC NOTIF (11/17/2023 8:58 AM [employer] ADMISSIONS REPRESENTATIVE) Comment Notification Label Only - See Separate Report 11/17/2023 10:00 AM [employer] ADMISSIONS REPRESENTATIVE [facility] Other MISCELLANEOUS SAMPLES / Unknown 11/17/2023 8:58 AM [employer] ADMISSIONS REPRESENTATIVE 11/17/2023 9:00 AM [employer] ADMISSIONS REPRESENTATIVE Gómez Foster MD LAB - BLOOD GASES OR DERABLES [facility] [address] [place] [address], [facility] [phone] * ARTERIAL LINE PERFORMABLE (11/17/2023 8:47 AM H[employer] ADMISSIONS REPRESENTATIVE) Narrative Gómez Foster MD - 11/17/2023 8:47 AM [employer] ADMISSIONS REPRESENTATIVE Gómez Foster MD 11/17/2023 10:12 AM Arterial Line Placement Procedure Note Patient Location: OR. Procedure: Arterial Line (00857). Procedure Section Indications: continuous blood pressure monitoring and blood sampling needed. Consent: informed consent was obtained for the procedure, informed consent was obtained for the procedure, including sedation, risks of hemorrhage, hematoma, infection and adverse drug reactions were discussed and a time out was performed for patient safety. Alternatives Discussed: alternative treatment, delayed treatment and no treatment Skin Prep: Chloraprep. Orientation: Right. Site: radial. Site Identification: ultrasound guided with sterile sleeve and gel. Sterile Technique: cap and mask. Gauge: 20. Catheter Length: 10 cm. Catheter Type: Arrow. Seldinger Technique Used? Yes Number of Attempts: 1. Line Secured with: tape and Tegaderm. Procedure Tolerance: tolerated well. Events: none. Procedure Start Time: 11/17/2023 7:48 AM. Procedure End Time: 11/17/2023 7:52 AM. Procedure Total Time: 4 minutes. Patient Sedated? Yes Local Anesthetic Used? No Sedation Types: general anesthesia Staff Section Anesthesia Provider: Gómez Foster MD, Performed the procedure Gómez Foster MD GENERAL ANESTHESIA O RDERABLES * ETT LINE PERFORMABLE (11/17/2023 8:45 AM [employer] ADMISSIONS REPRESENTATIVE) Narrative Robby Araiza Anes Asst - 11/17/2023 8:45 AM [employer] ADMISSIONS REPRESENTATIVE Robby Araiza Anes Asst 11/17/2023 8:47 AM Endotracheal Tube Placement: Patient Location: OR. Intubation Event Date/Time: 11/17/2023 7:47 AM Procedure: intubation (79109). Procedure Section: Sedation: under general anesthesia. Indications for Airway Management: anesthesia Procedure pretreatments used? No Induction: standard IV Patient Position: sniffing and supine Mask Ventilation: easy with oral airway. Blade Type: Briscoe Blade Size: 2 Laryngoscopy View: grade 1 (full cords) Intubation Adjuncts: stylet Tube: endotracheal tube Placement: oral Tube type: cuff - inflated Tube Size (MM): 8 Depth of Insertion (CM): 23 Measured From: teeth Cuff volume (mL): 10 Cuff Inflated With: air Number of Attempts: 1. Placement Verified By: direct visualization, bilateral breath sounds, chest auscultation and CO2 detector CXR Findings: ETT in proper place. Tube secured with: adhesive tape and ETT ag. Dentition unchanged? Yes Difficult Airway? No. Procedure Start Time: 11/17/2023 7:47 AM. Procedure End Time: 11/17/2023 7:48 AM. Procedure Total Time: 1 minutes. Staff Section Anesthesia Provider: Robby Araiza Anes Asst, Performed the procedure Provider #1: Gómez Foster MD. Gómez Foster MD GENERAL ANESTHESIA O RDERABLES * ECHO ANES ADAL INTRAOP (11/17/2023 7:34 AM [employer] ADMISSIONS REPRESENTATIVE) BSA 1.96 m2 SS CV FUJI PACS Anatomical Region Laterality Modality Chest Ultrasound Narrative 11/17/2023 4:35 PM [employer] ADMISSIONS REPRESENTATIVE INTRA-OP ADAL EXAM. IMAGES SHOULD BE ACCESSIBLE IN RESULTS UNDER ECHO ANES ADAL INTRAOP . Surgeon: Indication:Intra-op: Holo-systolic murmur in patient for DEBRIDEMENT LEFT FOREARM (Left), reconstruction of left arm with free tissue transfer, possible skin graft (Left) and c/o S.O.B. ADAL Probe Insertion:Uneventful INTRA-OP ADAL EXAM 01. The examination is technically adequate. 02. Majority of heart structure observed. 03. Left Ventricle: Mild Concentric Left Ventricular Hypertrophy. Dilated Cardiomyopathy. Overall, there is normal LV systolic function with an ejection fraction about 60-65%. No Spontaneous Echo Contrast. Intra-Cavity Size by M-Mode: 5.49 cm in diastole and 3.08 cm in systole. 04. Segmental Wall Motion Abnormality: None 05. Right atrium: Function: Normal. No Spontaneous Echo Contrast. Size: 4.65 cm in diastole and 3.81 cm in systole. 06. Right ventricle: Function: Normal. TAPSE by M-Mode: 3.11 cm. No Spontaneous Echo Contrast. Size: 3.82 cm in diastole and 2.82 cm in systole. 07. Left atrium: Function: Normal. No Spontaneous Echo Contrast. Size in two perpendicular axes - Med-Lat [place]: 4.64 cm. A-P [place]: 4.34 cm. 08. Aortic valve and root are structurally normal. Trileaflet valve with adequate cusp separation of 1.66 cm in long axis view, which showed mild aortic valve regurgitation by color flow Doppler. Mild aortic stenosis. Peak Gradient: 22 mm of Hg and Mean Gradient: 11 mm of Hg. 09. Mitral valve is without much scarring, minimal thickening, with mild mitral valve regurgitation by color flow Doppler which revealed a central jet, not traveling to the opposite atrial wall. No mitral valve prolapse was noted. No torn chordae. No pulmonary vein flow reversal. Diameter of mitral valve annulus in commissural view: 3.09 cm and 2.87 cm in long axis view. 10. Tricuspid valve is in normal position, with mild tricuspid valve regurgitation by color flow Doppler. Valve annulus: 3.73 cm. 11. Pulmonic valve demonstrated trace pulmonary valve regurgitation. 12. Interatrial septum demonstrates no [id number] color flow to suggest a patent foramen ovale. 13. Pulmonary veins demonstrate systolic blunting, mderate diastolic dysfunction. 14. Left atrial appendage shows no evidence of left heart thrombus. Left atrial appendage shows normal emptying velocities with no Spontaneous Echo Contrast.. 15. LVOT and Ascending Aorta: LVOT diameter 2.10 cm. Aortic annulus (2.29 cm), Sinus of Valsalva (2.76 cm), Sinotubular junction (2.57 cm). The proximal ascending aorta (2.37 cm), appeared to be normal without pseudoaneurysm, coarctation or dissection. Grade 2/5 aortic atheroma seen in ascending aorta. Diameter of ascending aorta: cm. 16. Descending aorta: Grade 2/5 aortic atheroma seen. Diameter of descending aorta: 2.99 cm X 2.80 cm 17. Pericardial Effusion: None identified. 18. Left heart thrombus: Not evident. 19. Pleural Effusions: Large Right pleural effusion (6.88 cm) and Moderate Left Pleural Effusion (3.66 cm). ADAL Probe Removal:Uneventful Gómez Foster MD Study Details A complete echo was performed using complete 2D, color flow Doppler, spectral Doppler, complete 3D and M-mode. During the study the esophageal, transgastric and descending thoracic views were captured. The probe was inserted by the anesthesiologist. There was no probe insertion difficulty. General anesthesia was administered. Sedation was managed by the anesthesiologist. Lidocaine was not administered during the study. There were no complications during the procedure. Gómez Foster MD ECHO CUPID * TYPE + SCREEN PANEL (11/17/2023 2:36 AM HIGH SCHOOL ADMISSIONS REPRESENTATIVE) Only the most recent of6 resultswithin the time period is included. Antibody Screen NEG 3:52 AM HIGH SCHOOL ADMISSIONS REPRESENTATIVE [facility] ABO Rh B POS 11/17/2023 3:52 AM HIGH SCHOOL ADMISSIONS REPRESENTATIVE [facility] Blood Bank BLOOD SPECIMEN / Unknown Lab Venipuncture / Unknown 11/17/2023 2:36 AM HIGH SCHOOL ADMISSIONS REPRESENTATIVE 11/17/2023 3:09 AM HIGH SCHOOL ADMISSIONS REPRESENTATIVE Tashi Matthew MD LAB - BLOOD BANK ORD ERABLES [facility] [address] [place] [address], [facility] [phone] * POSACONAZOLE LEVEL (11/15/2023 12:28 AM HIGH SCHOOL ADMISSIONS REPRESENTATIVE) [facility] Posaconazole Quantitative LC-MS/MS 2.1 >=0.8 ug/mL 11/17/2023 3:15 PM HIGH SCHOOL ADMISSIONS REPRESENTATIVE [employer] ([facility]) Comment: INTERPRETIVE INFORMATION: Posaconazole, Quantitative by LC-MS/MS Therapeutic Range (trough): Greater than 0.7 ug/mL Posaconazole is a triazole antifungal drug indicated to treat invasive aspergillus and candidiasis infections. The therapeutic range is based on serum, predose (trough) draw collection at steady-state concentration. The pharmacokinetics of posaconazole are influenced by drug-drug interactions when coadministered with drugs metabolized by UDP-glucuronosyltransferase. Posaconazole is also an inhibitor of cytochrome P450 3A4 enzyme. Adverse effects may include fever, nausea, vomiting, diarrhea, cardiovascular disorders, and liver toxicity. This test was developed and its performance characteristics determined by [employer] It has not been cleared or approved by the [place] Food and Drug Administration. This test was performed in a CLIA certified laboratory and is intended for clinical purposes. Performed By: [employer] [address] [place] [address] [employer] Off Saw Operator: Thanh Farmer MD, PhD CLIA Number: [id number] Blood BLOOD SPECIMEN / Unknown Lab Venipuncture / Unknown 11/15/2023 12:28 AM HIGH SCHOOL ADMISSIONS REPRESENTATIVE 11/15/2023 12:34 AM HIGH SCHOOL ADMISSIONS REPRESENTATIVE Tashi Matthew MD LAB - CHEMISTRY ORDE IMELDA [facility] ([facility]) [address] [place] [id number], [facility] * VAS BILATERAL VENOUS DUPLEX LE (11/14/2023 8:08 AM HIGH SCHOOL ADMISSIONS REPRESENTATIVE) Anatomical Region Laterality Modality Lower Extremity Intravascular Ul trasound 11/14/2023 7:43 AM HIGH SCHOOL ADMISSIONS REPRESENTATIVE Narrative Procedure Note Luan Reyes MD - 11/14/2023 Tashi Matthew MD VASCULAR LAB ORDERAB LES * (ABNORMAL) HEPATIC FUNCTION PANEL (11/14/2023 6:38 AM HIGH SCHOOL ADMISSIONS REPRESENTATIVE) Only the most recent of3 resultswithin the time period is included. Protein Total 5.2(L) 6.0 - 8.3 g/dL 024 7:23 AM [facility] Albumin 2.7(L) 3.4 - 5.0 g/dL 11/14/2023 7:23 AM [facility] Bilirubin Total 0.7 0.2 - 1.2 mg/dL 10/24 7:23 AM [facility] Bilirubin Conjugated 0.3 0.1 - 0.5 mg/dL 11/14/2023 7:23 AM [facility] Bilirubin Unconjugated 0.4 Unconjugated Bilirubin is a calculated value: Reference ranges have not been established. mg/dL 11/14/2023 7:23 AM [facility] Alkaline Phosphatase 228(H) 40 - 150 U/L 11/14/2023 7:23 AM [facility] ALT 36 5 - 55 U/L 11/14/2023 7:23 AM [facility] AST 40(H) 5 - 34 U/L 11/14/2023 7:23 AM [facility] Albumin/Globulin Ratio 1.1 1.1 - 2.3 11/14/2023 7:23 AM [facility] Blood BLOOD SPECIMEN / Unknown Lab Venipuncture / Unknown 11/14/2023 6:38 AM HIGH SCHOOL ADMISSIONS REPRESENTATIVE 11/14/2023 6:54 AM HIGH SCHOOL ADMISSIONS REPRESENTATIVE Tashi Matthew MD LAB - CHEMISTRY NICK SEGURA [address] [address], [facility] [phone] * TRANSFUSE RED BLOOD CELL LEUKOREDUCED UNIT(S) (11/13/2023 6:42 PM HIGH SCHOOL ADMISSIONS REPRESENTATIVE) Tashi Matthew MD NURSING - BLOOD PROD TRANSFUSION * IR PICC LINE INSERT (11/13/2023 2:32 PM HIGH SCHOOL ADMISSIONS REPRESENTATIVE) Anatomical Region Laterality Modality Chest, Upper Extremity X-Ray Ang iography 11/13/2023 2:47 PM HIGH SCHOOL ADMISSIONS REPRESENTATIVE Impressions 11/13/2023 2:50 PM HIGH SCHOOL ADMISSIONS REPRESENTATIVE Impression: Successful placement of a 5 Maltese x 43 cm single-lumen power PICC via the right basilic vein under ultrasound and fluoroscopic guidance. Note: The catheter can be used now. I, Paul Diehl, was present and performed/supervised the entire procedure. > Interpreting Provider: Paul Diehl MD on 11/13/2023 2:50 PM Narrative 11/13/2023 2:50 PM HIGH SCHOOL ADMISSIONS REPRESENTATIVE History: PICC line requested for long-term IV antibiotics in a patient with left upper extremity mechanical injury, status post surgery. Operators: Dr. Paul Diehl, Attending Physician Anesthesia: Local - 5 ml of 1% lidocaine Procedures: 1.Limited extremity ultrasound to assess vascular patency. 2.Ultrasound-guided access of the right basilic vein. 3.Fluoroscopy-guided placement of a 5 Maltese x 43 cm single-lumen peripherally inserted central catheter (PICC) through the right basilic vein. Fluoroscopy time: 0.1 Procedure in detail: The procedure, risks, benefits, and alternatives were explained to the patient in detail, and informed consent was obtained. The patient was placed supine on the angiography table. The right arm was prepped and draped in the usual sterile manner. Limited ultrasound of the right basilic vein demonstrated a patent and compressible vein. A bueno scale image was documented. After administering 1% lidocaine for local anesthesia, the right basilic vein was accessed using a micropuncture needle. The needle entry was documented. A 0.018-inch guidewire was then advanced centrally. A small dermatotomy was made at the puncture site, and a peel-away sheath was advanced into the vein. The PICC was then introduced through the peel-away sheath and advanced to the right atrium under fluoroscopic guidance. A final fluoroscopic image confirmed proper position of the catheter tip at the superior cavoatrial junction. The catheter was secured with Stat-Lock. A sterile dressing was placed. The port(s) aspirated and flushed without difficulty. The patient tolerated the procedure well and was transferred to the holding area in stable condition. There were no immediate complications associated with the procedure. Procedure Note Paul Diehl MD - 11/13/2023 History: PICC line requested for long-term IV antibiotics in a patientwith left upper extremity mechanical injury, status post surgery. Operators: Dr. Paul Diehl, Attending Physician Anesthesia: Local - 5 ml of 1% lidocaine Procedures: 1.Limited extremity ultrasound to assess vascular patency. 2.Ultrasound-guided access of the right basilic vein. 3.Fluoroscopy-guided placement of a 5 Maltese x 43 cm single-lumen peripherally inserted central catheter (PICC) through the right basilic vein. Fluoroscopy time: 0.1 Procedure in detail: The procedure, risks, benefits, and alternatives were explained to the patient in detail, and informed consent was obtained. The patient was placed supine on the angiography table. The right arm was prepped and draped in the usual sterile manner. Limited ultrasound of the right basilic vein demonstrated a patent and compressible vein. A bueno scale image was documented. Afteradministering 1% lidocaine for local anesthesia, the right basilic vein was accessed using a micropuncture needle. The needle entry was documented. A 0.018-inch guidewire was then advanced centrally. A small dermatotomywas made at the puncture site, and a peel-away sheath was advanced into the vein. The PICC was then introduced through the peel-away sheath and advanced to the right atrium under fluoroscopic guidance. A final fluoroscopic image confirmed proper position of the catheter tip at the superior cavoatrial junction. The catheter was secured with Stat-Lock. A sterile dressing was placed. The port(s) aspirated and flushed without difficulty. The patient tolerated the procedure well and [facility] There were no immediate complicationsassociated with the procedure. Impression: Successful placement of a 5 Maltese x 43 cm single-lumenpower PICC via the right basilic vein under ultrasound and fluoroscopicguidance. Note: The catheter can be used now. I, Paul Diehl, was present and performed/supervised the entire procedure. > Interpreting Provider: Paul Diehl MD on 11/13/2023 2:50 PM Tashi Matthew MD IR ORDERABLES * TROPONIN-I HIGH SENSITIVE (11/12/2023 6:09 AM HIGH SCHOOL ADMISSIONS REPRESENTATIVE) Troponin I High Sensitive 7 <=35 ng/L 11/12/2023 6:49 AM HIGH SCHOOL ADMISSIONS REPRESENTATIVE [facility] Blood BLOOD SPECIMEN / Unknown Venipuncture / Unknown 11/12/2023 6:09 AM HIGH SCHOOL ADMISSIONS REPRESENTATIVE 11/12/2023 6:09 AM HIGH SCHOOL ADMISSIONS REPRESENTATIVE Tashi Matthew MD [facility] [address] [address], [facility] [phone] * US RETROPERITONEAL COMPLETE (11/11/2023 3:09 PM HIGH SCHOOL ADMISSIONS REPRESENTATIVE) Anatomical Region Laterality Modality Abdomen Ultrasound 11/12/2023 9:12 AM HIGH SCHOOL ADMISSIONS REPRESENTATIVE Impressions 11/12/2023 5:33 PM HIGH SCHOOL ADMISSIONS REPRESENTATIVE IMPRESSION: 1.Normal renal size. No evidence of nephrolithiasis, hydronephrosis, or solid renal mass. > Dictated by Christine Atkins MD (vice president quality improvement). IGuillermina MD have personally reviewed and interpreted this examination/study. > Interpreting Provider: Guillermina Perkins MD on 11/12/2023 5:33 PM Narrative 11/12/2023 5:33 PM HIGH SCHOOL ADMISSIONS REPRESENTATIVE EXAMINATION: US RETROPERITONEAL COMPLETE DATE/TIME OF EXAM: 11/11/2023 4:38 PM, LOCATION [facility] HISTORY: N17.9: CARROL (acute kidney injury) ([facility]) COMPARISON: No prior study is available for comparison. FINDINGS: Limited acoustic window due to the patient's body habitus and medical condition. Right kidney: 12.7 x 5.4 x 5.6 cm (volume of 201.8 ml). Left kidney: 12.0 x 6.3 x 5.6 cm (volume of 221.4 ml). The renal parenchymal echogenicity is normal. There is no evidence of a solid renal mass, renal calculi, or hydronephrosis. Blood flow is seen within the renal arteries and veins. The bladder is distended and appears normal, with bilateral ureteral jets. Partially visualized bilateral pleural effusions. Procedure Note Vicky Perkins MD - 11/12/2023 EXAMINATION: US RETROPERITONEAL COMPLETE DATE/TIME OF EXAM: 11/11/2023 4:38 PM, LOCATION [facility] HISTORY: N17.9: CARROL (acute kidney injury) ([facility]) COMPARISON: No prior study is available for comparison. FINDINGS: Limited acoustic window due to the patient's body habitus and medical condition. Right kidney: 12.7 x 5.4 x 5.6 cm (volume of 201.8 ml). Left kidney: 12.0 x 6.3 x 5.6 cm (volume of 221.4 ml). The renal parenchymal echogenicity is normal. There is no evidence of a solid renal mass, renal calculi, or hydronephrosis. Blood flow is seen within the renal arteries and veins. The bladder is distended andappears normal, with bilateral ureteral jets. Partially visualized bilateral pleural effusions. IMPRESSION: 1.Normal renal size. No evidence of nephrolithiasis, hydronephrosis, or solid renal mass. > Dictated by Christine Atkins MD (vice president quality improvement). I, Guillermina Perkins MD have personally reviewed and interpreted this examination/study. > Interpreting Provider: Guillermina Perkins MD on 11/12/2023 5:33 PM Tashi Matthew MD ORDERABLES * (ABNORMAL) URINALYSIS REFLEX TO MICROSCOPIC NO CULTURE (11/10/2023 11:14 AM HIGH SCHOOL ADMISSIONS REPRESENTATIVE) Color UA Colorless(A ) Straw, Yellow 11/10/2023 11:30 AM [facility] Clarity UA Clear Clear 11/10/2023 11:30 AM [facility] Specific [place] UA 1.006 1.005 - 1.030 11/10/2023 11:30 AM [facility] pH UA 6.0 5.0 - 8.0 pH 11/10/2023 11:30 AM [facility] Protein UA Negative Negative 11/10/2023 11:30 AM [facility] Glucose UA Negative Negative 11/10/2023 11:30 AM [facility] Ketone UA Negative Negative 11/10/2023 11:30 AM [facility] Bilirubin UA Negative Negative 11/10/2023 11:30 AM [facility] Blood UA Negative Negative 11/10/2023 11:30 AM [facility] Nitrite UA Negative Negative 11/10/2023 11:30 AM [facility] Leukocyte Esterase Negative Negative 11/10/2023 11:30 AM [facility] Urobilinogen UA Negative Negative mg/dL 11/10/2023 11:30 AM [facility] RBC UA 0-2 None Seen, 0-2, 3-5 /HPF 11/10/2023 11:30 AM [facility] WBC UA 0-5 None Seen, 0-5 /HPF 11/10/2023 11:30 AM [facility] Squamous Epithelial Cells UA 0-2 None Seen, 0-2, 3-5 /HPF 11/10/2023 11:30 AM [facility] Mucus UA 1+ /LPF 11/10/2023 11:30 AM [facility] Urine URINE SPECIMEN OBTAINED BY CLEAN CATCH PROCEDURE / Unknown Collection / Unknown 11/10/2023 11:14 AM HIGH SCHOOL ADMISSIONS REPRESENTATIVE 11/10/2023 11:21 AM [facility] - 11/10/2023 11:30 AM [facility] Tashi Matthew MD LAB - URINALYSIS ORD ERABLES [facility] [address] [place] [address], [facility] [phone] * SODIUM URINE RANDOM (11/10/2023 11:14 AM HIGH SCHOOL ADMISSIONS REPRESENTATIVE) Sodium Urine 105 Not Established mmol/L 11/10/2023 11:47 AM HIGH SCHOOL ADMISSIONS REPRESENTATIVE [facility] Urine URINE SPECIMEN OBTAINED BY CLEAN CATCH PROCEDURE / Unknown Collection / Unknown 11/10/2023 11:14 AM HIGH SCHOOL ADMISSIONS REPRESENTATIVE 11/10/2023 11:21 AM HIGH SCHOOL ADMISSIONS REPRESENTATIVE Tashi Matthew MD LAB - URINE CHEMISTR Y ORDERABLES Performing Organization Address City/[facility]/ZIP Co de Phone Number [address] [address], [facility] [phone] * UREA NITROGEN URINE RANDOM (11/10/2023 11:14 AM HIGH SCHOOL ADMISSIONS REPRESENTATIVE) Urea Nitrogen Random Urine 153 Not Established mg/dL 11/10/2023 11:47 AM HIGH SCHOOL ADMISSIONS REPRESENTATIVE [facility] Urine URINE SPECIMEN OBTAINED BY CLEAN CATCH PROCEDURE / Unknown Collection / Unknown 11/10/2023 11:14 AM HIGH SCHOOL ADMISSIONS REPRESENTATIVE 11/10/2023 11:21 AM HIGH SCHOOL ADMISSIONS REPRESENTATIVE Tashi Matthew MD LAB - URINE CHEMISTR Y ORDERABLES Performing Organization Address [facility] Co de Phone Number [address] [address], [facility] [phone] * CREATININE URINE RANDOM (11/10/2023 11:14 AM HIGH SCHOOL ADMISSIONS REPRESENTATIVE) Creatinine Urine 16.43 Not Established mg/dL 11/10/2023 11:47 AM HIGH SCHOOL ADMISSIONS REPRESENTATIVE [facility] Urine URINE SPECIMEN OBTAINED BY CLEAN CATCH PROCEDURE / Unknown Collection / Unknown 11/10/2023 11:14 AM HIGH SCHOOL ADMISSIONS REPRESENTATIVE 11/10/2023 11:21 AM HIGH SCHOOL ADMISSIONS REPRESENTATIVE Tashi Matthew MD LAB - URINE CHEMISTR Y ORDERABLES Performing Organization Address City/[facility] Co de Phone Number [address] [address], [place] [phone] * (ABNORMAL) C-REACTIVE PROTEIN (11/10/2023 6:54 AM HIGH SCHOOL ADMISSIONS REPRESENTATIVE) C-Reactive Protein 1.5(H) <=0.5 mg/dL 11/10/2023 7:57 AM HIGH SCHOOL ADMISSIONS REPRESENTATIVE [facility] Blood BLOOD SPECIMEN / Unknown Lab Venipuncture / Unknown 11/10/2023 6:54 AM HIGH SCHOOL ADMISSIONS REPRESENTATIVE 11/10/2023 7:34 AM HIGH SCHOOL ADMISSIONS REPRESENTATIVE Tashi Matthew MD LAB - CHEMISTRY NICK SEGURA [facility] [address] [place] [address], [facility] [phone] * XR CHEST 1VW (11/10/2023 6:33 AM HIGH SCHOOL ADMISSIONS REPRESENTATIVE) Anatomical Region Laterality Modality Chest Radiographic Carin ging 11/10/2023 1:35 PM HIGH SCHOOL ADMISSIONS REPRESENTATIVE Narrative 11/10/2023 2:25 PM HIGH SCHOOL ADMISSIONS REPRESENTATIVE PROCEDURE: XR CHEST 1VW, DATE/TIME OF EXAM: 11/10/2023 6:33 AM, LOCATION [facility] INDICATION: R06.02: Shortness of breath ADDITIONAL CLINICAL INFORMATION: Ordering Provider Reason For Exam: sob COMPARISON: None TECHNIQUE: Frontal radiograph of the chest. FINDINGS/IMPRESSION: Patient is slightly rotated to the right. There is no focal consolidation. Radiopaque BBs are overlying the midtrachea, left lateral axilla and left shoulder Cardiac mediastinal silhouette is within normal limits. No visualized pneumothorax or pleural effusion. Report dictated by Trena Osman MD (vice president quality improvement). I, Alex Aguilar MD have personally reviewed and interpreted this examination/study. > Interpreting Provider: Alex Aguilar MD on 11/10/2023 2:25 PM Procedure Note Alex Aguilar MD - 11/10/2023 PROCEDURE: XR CHEST 1VW, DATE/TIME OF EXAM: 11/10/2023 6:33 AM, LOCATION [facility] INDICATION: R06.02: Shortness of breath ADDITIONAL CLINICAL INFORMATION: Ordering Provider Reason For Exam: sob COMPARISON: None TECHNIQUE: Frontal radiograph of the chest. FINDINGS/IMPRESSION: Patient is slightly rotated to the right. There is no focal consolidation. Radiopaque BBs are overlying the midtrachea, left lateral axilla and left shoulder Cardiac mediastinal silhouette is within normal limits. No visualized pneumothorax or pleural effusion. Report dictated by Trena Osman MD (vice president quality improvement). I, Alex Aguilar MD have personally reviewed and interpreted this examination/study. > Interpreting Provider: Alex Aguilar MD on 11/10/2023 2:25 PM Tashi Matthew MD DIAGNOSTIC IMAGING O RDERABLES * CULTURE AFB+SMEAR (11/08/2023 10:54 AM HIGH SCHOOL ADMISSIONS REPRESENTATIVE) Only the most recent of10 resultswithin the time period is included. Culture No acid-fast bacillus isolated 12/18/2023 9:11 AM HIGH SCHOOL ADMISSIONS REPRESENTATIVE [facility] AFB Smear No acid-fast bacilli seen 12/18/2023 9:11 AM HIGH SCHOOL ADMISSIONS REPRESENTATIVE [facility] Microbiology TISSUE SPECIMEN / Unknown Collection / Unknown 11/08/2023 10:54 AM HIGH SCHOOL ADMISSIONS REPRESENTATIVE 11/08/2023 10:54 AM HIGH SCHOOL ADMISSIONS REPRESENTATIVE Tashi Matthew MD LAB - MICROBIOLOGY O CYNTHIA Performing Organization Address City/[facility]/ZIP Co de Phone Number [facility] [address] [place], [place] [address], [facility] [phone] * CULTURE TISSUE+GRAM STAIN (11/08/2023 10:53 AM HIGH SCHOOL ADMISSIONS REPRESENTATIVE) Only the most recent of10 resultswithin the time period is included. Culture No growth TY 11/11/2023 2:52 PM HIGH SCHOOL ADMISSIONS REPRESENTATIVE [facility] Gram Stain No polymorphonuclear cells 11/11/2023 2:52 PM HIGH SCHOOL ADMISSIONS REPRESENTATIVE [facility] Gram Stain No organisms seen 024 2:52 PM HIGH SCHOOL ADMISSIONS REPRESENTATIVE [facility] Gram Stain Heavy Red blood cells 11/11/2023 2:52 PM HIGH SCHOOL ADMISSIONS REPRESENTATIVE [facility] Microbiology TISSUE SPECIMEN / Unknown Collection / Unknown 11/08/2023 10:53 AM HIGH SCHOOL ADMISSIONS REPRESENTATIVE 11/08/2023 10:53 AM HIGH SCHOOL ADMISSIONS REPRESENTATIVE Tashi Matthew MD LAB - MICROBIOLOGY O CYNTHIA [facility] [address] [place] [address], [facility] [phone] * LARYNGEAL MASK AIRWAY (11/08/2023 10:06 AM HIGH SCHOOL ADMISSIONS REPRESENTATIVE) Narrative Nigel Mancia Anes Asst - 11/08/2023 10:06 AM HIGH SCHOOL ADMISSIONS REPRESENTATIVE Nigel Mancia Anes Asst 11/08/2023 10:06 AM LMA Placement Procedure/LDA Note: Patient Location: OR. LMA Insertion Date/Time: 11/08/2023 9:33 AM Procedure: LMA. Pretreatment: 100% O2 Induction: standard IV Patient position: sniffing. Mask Ventilation: not attempted Type: gel LMA Size: 5 Number of Attempts: 1. Placement verified by: direct visualization, bilateral breath sounds, CO2 monitor and chest auscultation Dentition unchanged? Yes Procedure Start Time: 11/08/2023 9:33 AM. Procedure End Time: 11/08/2023 9:35 AM. Procedure Total Time: 2 minutes. Staff Section Anesthesia Provider: Yo Aiken DO Provider #1: Nigel Mancia Anes Asst, Performed the procedure. Yo Aiken DO GENERAL ANESTHESIA O RDERABLES * HEPATITIS C AB SCREEN RFLX NAAT QUANT (11/06/2023 6:06 PM HIGH SCHOOL ADMISSIONS REPRESENTATIVE) Hepatitis C Antibody Non-react parish Non-reac tive 11/06/2023 7:13 PM HIGH SCHOOL ADMISSIONS REPRESENTATIVE [facility] Comment:Hepatitis C Antibody screen indicates no serologic evidence of past or current infection with Hepatitis C Virus. Patients with unexplained liver disease who are immunocompromised or suspected of having acute Hepatitis C infection may benefit from Nucleic Acid Test (QUINCY) for Hepatitis C Viral RNA to confirm Hepatitis C status. Blood BLOOD SPECIMEN / Unknown Lab Venipuncture / Unknown 11/06/2023 6:06 PM HIGH SCHOOL ADMISSIONS REPRESENTATIVE 11/06/2023 6:16 PM HIGH SCHOOL ADMISSIONS REPRESENTATIVE Tashi Matthew MD LAB - CHEMISTRY NICK SEGURA [facility] [address] [place] [address], [place] [phone] * HIV-1 HIV-2 ANTIBODY + HIV P24 AG PANEL (11/06/2023 6:06 PM HIGH SCHOOL ADMISSIONS REPRESENTATIVE) Pathologist [facility] HIV Antigen/Antibod y 1 & 2 Non-reacti ve Non-react parish 11/06/2023 7:13 PM [facility] Comment:No Laboratory eviden ce of HIV infection. Blood BLOOD SPECIMEN / Unknown Lab Venipuncture / Unknown 11/06/2023 6:06 PM HIGH SCHOOL ADMISSIONS REPRESENTATIVE 11/06/2023 6:16 PM HIGH SCHOOL ADMISSIONS REPRESENTATIVE Tashi Matthew MD LAB - CHEMISTRY NICK SEGURA [facility] Organization Address City/State/ZIP Co de Phone Number [facility] [address] [place] [address], [facility] [phone] * (ABNORMAL) CBC W/O DIFFERENTIAL (11/03/2023 2:38 PM HIGH SCHOOL ADMISSIONS REPRESENTATIVE) Only the most recent of6 resultswithin the time period is included. [facility] WBC 9.2 4.0 - 10.7 x10E9/L 11/03/2023 3:19 PM [facility] RBC Count 2.64(L) 4.30 - 5.80 x10E12/L 11/03/2023 3:19 PM [facility] Hemoglobin 8.2(L) 13.3 - 17.5 g/dL 11/03/2023 3:19 PM [facility] Hematocrit 25.4(L) 38.7 - 51.1 % 11/03/2023 3:19 PM [facility] MCV 96.2 80.0 - 98.0 fL 11/03/2023 3:19 PM [facility] MCH 31.1 26.7 - 33.6 pg 11/03/2023 3:19 PM [facility] MCHC 32.3 31.7 - 36.3 g/dL 11/03/2023 3:19 PM [facility] RDW-CV 15.5(H) 11.3 - 14.8 % 11/03/2023 3:19 PM [facility] Platelet Count 309 150 - 420 x10E9/L 11/03/2023 3:19 PM [facility] MPV 10.6 7.8 - 11.4 fL 11/03/2023 3:19 PM HIGH SCHOOL ADMISSIONS REPRESENTATIVE [facility] Blood BLOOD SPECIMEN / Unknown Lab Venipuncture / Unknown 11/03/2023 2:38 PM HIGH SCHOOL ADMISSIONS REPRESENTATIVE 11/03/2023 2:52 PM H[facility] SCHOOL ADMISSIONS REPRESENTATIVE Tashi Matthew MD LAB - HEMATOLOGY ORD ERABLES [facility] [address] [place] [address], [facility] [phone] * TRANSFUSE RED BLOOD CELL LEUKOREDUCED UNIT(S) (11/03/2023 12:45 PM HIGH SCHOOL ADMISSIONS REPRESENTATIVE) Tashi Matthew MD NURSING - BLOOD PROD TRANSFUSION * CULTURE WOUND+GRAM STAIN (11/01/2023 2:41 PM HIGH SCHOOL ADMISSIONS REPRESENTATIVE) Only the most recent of2 resultswithin the time period is included. Culture No growth TY 11/04/2023 6:06 AM [facility] MICROBIOLOGY Gram Stain Heavy Red blood cells 11/04/2023 6:06 AM HIGH SCHOOL ADMISSIONS REPRESENTATIVE [facility] MICROBIOLOGY Gram Stain Rare Polymorphonuclear cells 11/04/2023 6:06 AM [facility] MICROBIOLOGY Gram Stain No organisms seen 024 6:06 AM [facility] MICROBIOLOGY Microbiology ENTIRE UPPER LIMB / Unknown Collection / Unknown 11/01/2023 2:41 PM HIGH SCHOOL ADMISSIONS REPRESENTATIVE 11/01/2023 3:10 PM HIGH SCHOOL ADMISSIONS REPRESENTATIVE Tashi Matthew MD LAB - MICROBIOLOGY O RDERABLES [facility] MICROBIOLOGY [address] [place] [address], [facility] [phone] * LARYNGEAL MASK AIRWAY (11/01/2023 1:21 PM HIGH SCHOOL ADMISSIONS REPRESENTATIVE) Narrative Anna Hilario Anes Asst - 11/01/2023 1:21 PM HIGH SCHOOL ADMISSIONS REPRESENTATIVE Anna Hilario Anes Asst 11/01/2023 1:23 PM LMA Placement Procedure/LDA Note: Patient Location: OR. LMA Insertion Date/Time: 11/01/2023 1:17 PM Procedure: LMA. Pretreatment: 100% O2 Induction: standard IV Patient position: sniffing and supine. Mask Ventilation: not attempted Type: LMA Size: 5 Number of Attempts: 1. Cuff inflation pressure (CM H20): 20 Placement verified by: direct visualization, bilateral breath sounds, chest auscultation and CO2 detector Dentition unchanged? Yes Procedure Start Time: 11/01/2023 1:17 PM. Procedure End Time: 11/01/2023 1:17 PM. Procedure Total Time: 0 minutes. Staff Section Anesthesia Provider: Robby Araiza Anes Asst, Performed the procedure Provider #1: Vanessa Schilling MD. Vanessa Schilling MD GENERAL ANESTHESIA O RDERABLES * XR WRIST LEFT 3VW OR MORE (10/30/2023 11:13 AM HIGH SCHOOL ADMISSIONS REPRESENTATIVE) Anatomical Region Laterality Modality Wrist / Hand Radiographic Carin ging 10/31/2023 1:33 PM HIGH SCHOOL ADMISSIONS REPRESENTATIVE Impressions 10/31/2023 2:09 PM HIGH SCHOOL ADMISSIONS REPRESENTATIVE IMPRESSION: 1.Internally fixated radius and ulnar fractures. 2.Redemonstrated scapholunate interval widening compatible with ligament tear. Report dictated by Julian Bourgeois DO (vice president quality improvement). I, Brayden Coleman MD have personally reviewed and interpreted this examination/study. > Interpreting Provider: Brayden Coleman MD on 10/31/2023 2:09 PM Narrative 10/31/2023 2:09 PM HIGH SCHOOL ADMISSIONS REPRESENTATIVE PROCEDURE: XR WRIST LEFT 3VW OR MORE, XR HAND LEFT 3VW OR MORE, DATE/TIME OF EXAM: 10/30/2023 11:13 AM, LOCATION [facility] INDICATION: S57.82XA: Crushing injury of left forearm, initial encounter ADDITIONAL CLINICAL INFORMATION: Ordering Provider Reason For Exam: Sp orif (accession [id number]), Sp orif major trauma (accession [id number]) Technologist Note: Additional: COMPARISON: Left hand x-ray dated 2023 and left forearm x-ray dated 2023 FINDINGS: Left wrist: A splint overlies the wrist and hand. Internally fixated distal radius fracture with 2 plates and multiple screws including a screw near the articular surface of the radius. Internally fixated distal ulnar fracture with a plate and screws. The hardware is intact and the osseous alignment is improved. There is widening of the scapholunate interval. Left hand: Limited evaluation due to obscuration by a splint and overlapping of fingers. Metallic foreign bodies, unchanged. No acute fracture is visualized. Procedure Note Brayden Coleman MD - 10/31/2023 PROCEDURE: XR WRIST LEFT 3VW OR MORE, XR HAND LEFT 3VW OR MORE,DATE/TIME OF EXAM: 10/30/2023 11:13 AM, LOCATION [facility] INDICATION: S57.82XA: Crushing injury of left forearm, initial encounter ADDITIONAL CLINICAL INFORMATION: Ordering Provider Reason For Exam: Sp orif (accession [id number]), Sporif major trauma (accession [id number]) Technologist Note: Additional: COMPARISON: Left hand x-ray dated 2023 and left forearm x-ray dated 2023 FINDINGS: Left wrist: A splint overlies the wrist and hand. Internally fixated distal radius fracture with 2 plates and multiple screws including a screw near the articular surface of the radius. Internally fixated distal ulnarfracture with a plate and screws. The hardware is intact and the osseousalignment is improved. There is widening of the scapholunate interval. Left hand: Limited evaluation due to obscuration by a splint and overlapping of fingers. Metallic foreign bodies, unchanged. No acute fracture is visualized. IMPRESSION: 1.Internally fixated radius and ulnar fractures. 2.Redemonstrated scapholunate interval widening compatible with ligament tear. Report dictated by Julian Bourgeois DO (vice president quality improvement). I, Brayden Coleman MD have personally reviewed and interpreted this examination/study. > Interpreting Provider: Brayden Coleman MD on 10/31/2023 2:09 PM Tashi Matthew MD DIAGNOSTIC IMAGING O RDERABLES * VANCOMYCIN LEVEL TROUGH (10/29/2023 9:38 PM HIGH SCHOOL ADMISSIONS REPRESENTATIVE) Only the most recent of2 resultswithin the time period is included. Vancomycin Trough 11.6 10.0 - 20.0 ug/mL 10/29/2023 10:07 PM HIGH SCHOOL ADMISSIONS REPRESENTATIVE [facility] Blood BLOOD SPECIMEN / Unknown Lab Venipuncture / Unknown 10/29/2023 9:38 PM HIGH SCHOOL ADMISSIONS REPRESENTATIVE 10/29/2023 9:38 PM HIGH SCHOOL ADMISSIONS REPRESENTATIVE [facility] - 10/29/2023 10:07 PM HIGH SCHOOL ADMISSIONS REPRESENTATIVE See institution protocol. Tashi Matthew MD LAB - CHEMISTRY NICK SEGURA Performing Organization Address [facility]/ZIP Co de Phone Number [address] [address], [facility] [phone] * (ABNORMAL) VANCOMYCIN LEVEL PEAK (10/29/2023 3:48 PM HIGH SCHOOL ADMISSIONS REPRESENTATIVE) Only the most recent of3 resultswithin the time period is included. [facility] Vancomycin Peak 17.2(L) 25.0 - 40.0 ug/mL 10/29/2023 4:25 PM HIGH SCHOOL ADMISSIONS REPRESENTATIVE [facility] Blood BLOOD SPECIMEN / Unknown Lab Venipuncture / Unknown 10/29/2023 3:48 PM HIGH SCHOOL ADMISSIONS REPRESENTATIVE 10/29/2023 3:52 PM HIGH SCHOOL ADMISSIONS REPRESENTATIVE [facility] - 10/29/2023 4:25 PM HIGH SCHOOL ADMISSIONS REPRESENTATIVE See institution protocol. Data does not support the use of vancomycin peak concentration for efficacy. Tashi Matthew MD LAB - CHEMISTRY NICK SEGURA Performing Organization Address [facility] Co de Phone Number [address] [address], [facility] [phone] * FUNGUS IDENTIFICATION (10/27/2023 5:40 PM HIGH SCHOOL ADMISSIONS REPRESENTATIVE) [facility] Prelim Report SEE NOTE 11/05/2023 4:18 AM HIGH SCHOOL ADMISSIONS REPRESENTATIVE [employer] ([facility]) Comment: Specimen received and in progress. Performed By: [employer] 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 It has not been cleared or approved by the U.S. Food and Drug Administration. This test was performed in a CLIA-certified laboratory and is intended for clinical purposes. Performed By: [employer] [address] [id number] [employer] Saw Operator: Thanh Farmer MD, PhD CLIA Number: [id number] Microbiology ENTIRE UPPER LIMB / Unknown Collection / Unknown 10/27/2023 5:40 PM HIGH SCHOOL ADMISSIONS REPRESENTATIVE 10/27/2023 5:47 PM HIGH SCHOOL ADMISSIONS REPRESENTATIVE Tashi Matthew MD LAB - MICROBIOLOGY O RDERABLES [employer] ([facility]) [address] [place] [address], [facility] * LARYNGEAL MASK AIRWAY (10/27/2023 5:11 PM HIGH SCHOOL ADMISSIONS REPRESENTATIVE) Narrative Bucky Marie Anes Asst - 10/27/2023 5:11 PM HIGH SCHOOL ADMISSIONS REPRESENTATIVE Bucky Marie Anes Asst 10/27/2023 5:12 PM LMA Placement Procedure/LDA Note: Patient Location: OR. LMA Insertion Date/Time: 10/27/2023 4:43 PM Procedure: LMA. Pretreatment: 100% O2 Induction: standard IV Patient position: supine. Mask Ventilation: not attempted Type: LMA Size: 5 Number of Attempts: 1. Placement verified by: direct visualization, bilateral breath sounds, chest auscultation and CO2 monitor Dentition unchanged? Yes Procedure Start Time: 10/27/2023 4:43 PM. Procedure End Time: 10/27/2023 4:43 PM. Procedure Total Time: 0 minutes. Staff Section Anesthesia Provider: Bucky Marie Anes Asst, Performed the procedure Yo Smith MD GENERAL ANESTHES [place] ORDERABLES * TRANSFUSE RED BLOOD CELL LEUKOREDUCED UNIT(S) (10/27/2023 2:06 PM HIGH SCHOOL ADMISSIONS REPRESENTATIVE) Tashi Matthew MD NURSING - BLOOD PROD TRANSFUSION * TRANSFUSE RED BLOOD CELL LEUKOREDUCED UNIT(S) (10/27/2023 11:30 AM HIGH SCHOOL ADMISSIONS REPRESENTATIVE) Tashi Matthew MD NURSING - BLOOD PROD TRANSFUSION * CARDIAC EKG ORDER (2023 12:33 PM HIGH SCHOOL ADMISSIONS REPRESENTATIVE) Narrative 2023 12:33 PM HIGH SCHOOL ADMISSIONS REPRESENTATIVE Ordered by an unspecified provider. Scanned Document CARDIAC SERVICES ORD ERABLES * XR ELBOW LEFT 2VW (2023 8:53 AM HIGH SCHOOL ADMISSIONS REPRESENTATIVE) Anatomical Region Laterality Modality Upper Extremity Radiographic Carin ging 2023 1:06 PM HIGH SCHOOL ADMISSIONS REPRESENTATIVE Impressions 2023 4:02 PM HIGH SCHOOL ADMISSIONS REPRESENTATIVE IMPRESSION: 1.Interval plating and screw fixation of the severely comminuted ulnar and radial fractures with improved alignment. 2. Intra-articular fracture of lateral aspect of the distal articular radial surface is mildly displaced. 3.Scapholunate distance is widened to 6 mm concerning for ligamentous disruption. I, Bucky Ureña DO have personally reviewed and interpreted this examination/study. > Interpreting Provider: Bucky Ureña DO on 2023 4:02 PM Narrative 2023 4:02 PM HIGH SCHOOL ADMISSIONS REPRESENTATIVE PROCEDURE: XR FOREARM LEFT 2VW OR MORE, XR ELBOW LEFT 2VW, XR HAND LEFT 3VW OR MORE, XR HUMERUS LEFT 2VW OR MORE, DATE/TIME OF EXAM: 2023 8:53 AM, LOCATION [facility] INDICATION: S57.82XA: Crushing injury of left forearm, initial encounter ADDITIONAL CLINICAL INFORMATION: Ordering Provider Reason For Exam: Comminuted ulna radius fx (accession [id number]), Crushing injury lue (accession [id number]), Crushing trauma lie (accession [id number]), Crushing injury lue (accession [id number]) Technologist Note: Additional: COMPARISON: Left forearm radiograph dated 10/24/2023. HUMERUS FINDINGS: The humerus is intact without acute fracture. The joint spaces are preserved. Bone density and texture are normal. ELBOW FINDINGS: Small ossified fragments at the medial aspect of the distal humerus and proximal ulna are likely located within tendons versus less likely avulsion fracture fragments. The joint spaces are preserved. No joint effusion is seen. FOREARM FINDINGS: Interval plating and screw fixation of the severely comminuted ulnar and radial fractures with improved alignment. Intra-articular fracture of lateral aspect of the distal articular radial surface is mildly displaced. Soft tissue swelling seen throughout the forearm. HAND FINDINGS: Casting obscures bony and soft tissue detail. The osseous structures are intact and well aligned without acute fracture. Scapholunate distance is widened to 6 mm concerning for ligamentous disruption, similar to prior. Degenerative changes seen at the first carpal metacarpal joint radiopaque fragments over the dorsal aspect of the metacarpophalangeal joints may be retained foreign bodies. No soft tissue swelling is present. Procedure Note Bucky Ureña DO - 2023 PROCEDURE: XR FOREARM LEFT 2VW OR MORE, XR ELBOW LEFT 2VW, XR HAND LEFT 3VW OR MORE, XR HUMERUS LEFT 2VW OR MORE, DATE/TIME OF EXAM: 48:53 AM, LOCATION [facility] INDICATION: S57.82XA: Crushing injury of left forearm, initial encounter ADDITIONAL CLINICAL INFORMATION: Ordering Provider Reason For Exam: Comminuted ulna radius fx (accession [id number]), Crushing injury lue (accession [id number]), Crushing traumalie (accession [id number]), Crushing injury lue (accession [id number]) Technologist Note: Additional: COMPARISON: Left forearm radiograph dated 10/24/2023. HUMERUS FINDINGS: The humerus is intact without acute fracture. The joint spaces are preserved. Bone density and texture are normal. ELBOW FINDINGS: Small ossified fragments at the medial aspect of the distal humerus and proximal ulna are likely located within tendons versus less likelyavulsion fracture fragments. The joint spaces are preserved. No joint effusion is seen. FOREARM FINDINGS: Interval plating and screw fixation of the severely comminuted ulnar and radial fractures with improved alignment. Intra-articular fracture of lateral aspect of the distal articular radial surface is mildly displaced. Soft tissue swelling seen throughout the forearm. HAND FINDINGS: Casting obscures bony and soft tissue detail. The osseous structures are intact and well aligned without acutefracture. Scapholunate distance is widened to 6 mm concerning for ligamentous disruption, similar to prior. Degenerative changes seen at the firstcarpal metacarpal joint radiopaque fragments over the dorsal aspect of the metacarpophalangeal joints may be retained foreign bodies. No softtissue swelling is present. IMPRESSION: 1.Interval plating and screw fixation of the severely comminuted ulnarand radial fractures with improved alignment. 2. Intra-articular fracture of lateral aspect of the distal articular radial surface is mildly displaced. 3.Scapholunate distance is widened to 6 mm concerning for ligamentous disruption. Bucky Amezquita DO have personally reviewed and interpreted this examination/study. > Interpreting Provider: Bucky Ureña DO on 2023 4:02 PM Nigel Milner MD DIAGNOSTIC IMAGING ORDERABLES * XR HUMERUS LEFT 2VW OR MORE (2023 8:52 AM HIGH SCHOOL ADMISSIONS REPRESENTATIVE) Anatomical Region Laterality Modality Upper Extremity Radiographic Carin ging 2023 1:06 PM HIGH SCHOOL ADMISSIONS REPRESENTATIVE Impressions 2023 4:02 PM HIGH SCHOOL ADMISSIONS REPRESENTATIVE IMPRESSION: 1.Interval plating and screw fixation of the severely comminuted ulnar and radial fractures with improved alignment. 2. Intra-articular fracture of lateral aspect of the distal articular radial surface is mildly displaced. 3.Scapholunate distance is widened to 6 mm concerning for ligamentous disruption. Bucky Amezquita DO have personally reviewed and interpreted this examination/study. > Interpreting Provider: Bucky Ureña DO on 2023 4:02 PM Narrative 2023 4:02 PM HIGH SCHOOL ADMISSIONS REPRESENTATIVE PROCEDURE: XR FOREARM LEFT 2VW OR MORE, XR ELBOW LEFT 2VW, XR HAND LEFT 3VW OR MORE, XR HUMERUS LEFT 2VW OR MORE, DATE/TIME OF EXAM: 2023 8:53 AM, LOCATION [facility] INDICATION: S57.82XA: Crushing injury of left forearm, initial encounter ADDITIONAL CLINICAL INFORMATION: Ordering Provider Reason For Exam: Comminuted ulna radius fx (accession [id number]), Crushing injury lue (accession [id number]), Crushing trauma lie (accession [id number]), Crushing injury lue (accession [id number]) Technologist Note: Additional: COMPARISON: Left forearm radiograph dated 10/24/2023. HUMERUS FINDINGS: The humerus is intact without acute fracture. The joint spaces are preserved. Bone density and texture are normal. ELBOW FINDINGS: Small ossified fragments at the medial aspect of the distal humerus and proximal ulna are likely located within tendons versus less likely avulsion fracture fragments. The joint spaces are preserved. No joint effusion is seen. FOREARM FINDINGS: Interval plating and screw fixation of the severely comminuted ulnar and radial fractures with improved alignment. Intra-articular fracture of lateral aspect of the distal articular radial surface is mildly displaced. Soft tissue swelling seen throughout the forearm. HAND FINDINGS: Casting obscures bony and soft tissue detail. The osseous structures are intact and well aligned without acute fracture. Scapholunate distance is widened to 6 mm concerning for ligamentous disruption, similar to prior. Degenerative changes seen at the first carpal metacarpal joint radiopaque fragments over the dorsal aspect of the metacarpophalangeal joints may be retained foreign bodies. No soft tissue swelling is present. Procedure Note Bucky Ureña DO - 2023 PROCEDURE: XR FOREARM LEFT 2VW OR MORE, XR ELBOW LEFT 2VW, XR HAND LEFT 3VW OR MORE, XR HUMERUS LEFT 2VW OR MORE, DATE/TIME OF EXAM: 48:53 AM, LOCATION [facility] INDICATION: S57.82XA: Crushing injury of left forearm, initial encounter ADDITIONAL CLINICAL INFORMATION: Ordering Provider Reason For Exam: Comminuted ulna radius fx (accession [id number]), Crushing injury lue (accession [id number]), Crushing traumalie (accession [id number]), Crushing injury lue (accession [id number]) Technologist Note: Additional: COMPARISON: Left forearm radiograph dated 10/24/2023. HUMERUS FINDINGS: The humerus is intact without acute fracture. The joint spaces are preserved. Bone density and texture are normal. ELBOW FINDINGS: Small ossified fragments at the medial aspect of the distal humerus and proximal ulna are likely located within tendons versus less likelyavulsion fracture fragments. The joint spaces are preserved. No joint effusion is seen. FOREARM FINDINGS: Interval plating and screw fixation of the severely comminuted ulnar and radial fractures with improved alignment. Intra-articular fracture of lateral aspect of the distal articular radial surface is mildly displaced. Soft tissue swelling seen throughout the forearm. HAND FINDINGS: Casting obscures bony and soft tissue detail. The osseous structures are intact and well aligned without acutefracture. Scapholunate distance is widened to 6 mm concerning for ligamentous disruption, similar to prior. Degenerative changes seen at the firstcarpal metacarpal joint radiopaque fragments over the dorsal aspect of the metacarpophalangeal joints may be retained foreign bodies. No softtissue swelling is present. IMPRESSION: 1.Interval plating and screw fixation of the severely comminuted ulnarand radial fractures with improved alignment. 2. Intra-articular fracture of lateral aspect of the distal articular radial surface is mildly displaced. 3.Scapholunate distance is widened to 6 mm concerning for ligamentous disruption. I, Bucky Ureña DO have personally reviewed and interpreted this examination/study. > Interpreting Provider: Bucky Ureña DO on 2023 4:02 PM Nigel Milner MD DIAGNOSTIC IMAGING ORDERABLES * (ABNORMAL) BLOOD GAS+COOX+LYTES+METAB VENOUS POCT (10/24/2023 6:18 PM HIGH SCHOOL ADMISSIONS REPRESENTATIVE) Only the most recent of2 resultswithin the time period is included. pH Venous 7.37 7.32 - 7.42 pH 10/24/2023 6:18 PM [facility] pO2 Venous 68(H) 35 - 40 mmHg 10/24/2023 6:18 PM [facility] pCO2 Venous 45 40 - 50 mmHg 10/24/2023 6:18 PM [facility] HCO3 Venous 26.0 20 - 30 mmol/L 10/24/2023 6:18 PM [facility] Base Excess Venous 0.6 -2.0 - 2.0 mmol/L 10/24/2023 6:18 PM [facility] Oxyhemoglobin Venous 92.1 % 11/2023 6:18 PM [facility] Deoxyhemoglobin (HHB) Venous % 4.1 % 10/24/2023 6:18 PM [facility] Methemoglobin 1.2 0.0 - 2.0 % 10/24/2023 6:18 PM [facility] Carboxyhemoglobin 2.6(H) 0.0 - 2.0 % 2023 6:18 PM [facility] Comment:Carboxyhemoglobin No rmal Concentration: Non-smokers: 0-2%; Smokers: 0- 9%; Toxic: >20% O2 Content Venous 10.2 Interpret within clinical context ml/dL 10/24/2023 6:18 PM [facility] Hemoglobin by COOX 7.8(L) 12.0 - 17.6 g/dL 10/24/2023 6:18 PM [facility] O2 Saturation Venous 96 >=70 % 11/2023 6:18 PM [facility] Sodium Whole Blood 135 135 - 145 mmol/L 10/24/2023 6:18 PM [facility] Potassium Whole Blood 4.9 3.5 - 5.5 mmol/L 10/24/2023 6:18 PM [facility] Chloride WB 107 78 - 107 mmol/L 10/24/2023 6:18 PM [facility] Calcium Ionized 1.13 mmol/L 6:18 PM [facility] Ionized Calcium pH Adjusted 1.12(L) 1.19 - 1.34 mmol/L 10/24/2023 6:18 PM [facility] Anion Gap (AG) Arterial 2(L) 6 - 16 mmol/L 10/24/2023 6:18 PM [facility] Glucose WB 168(H) 70 - 115 mg/dL 10/24/2023 6:18 PM [facility] Lactic Acid Whole Blood 2.2(H) <=2.0 mmol/L 10/24/2023 6:18 PM [facility] Blood BLOOD SPECIMEN / Unknown 10/24/2023 6:18 PM HIGH SCHOOL ADMISSIONS REPRESENTATIVE 10/24/2023 6:18 PM [facility] - 10/24/2023 6:18 PM [facility] Licensed healthcare provider notified Nigel Milner MD LAB - POINT OF CARE ORDERABLES [facility] [address] [place] [address], [facility] [phone] * BLOOD TYPE VERIFICATION (10/24/2023 5:15 PM HIGH SCHOOL ADMISSIONS REPRESENTATIVE) ABO Rh B POS 10/24/2023 5:5 8 PM [facility] Blood Bank BLOOD SPECIMEN / Unknown Venipuncture / Unknown 10/24/2023 5:15 PM HIGH SCHOOL ADMISSIONS REPRESENTATIVE 10/24/2023 5:15 PM HIGH SCHOOL ADMISSIONS REPRESENTATIVE Tashi Matthew MD LAB - BLOOD BANK ORD ERABLES Performing Organization Address City/[facility] Co de Phone Number [facility] [address] [place] [address], [place] [phone] * BLOOD GAS MANDY+LYTES+METAB+COOX POC NOTIF (10/24/2023 5:01 PM HIGH SCHOOL ADMISSIONS REPRESENTATIVE) Comment Notification Label Only - See Separate Report 10/24/2023 6:11 PM HIGH SCHOOL ADMISSIONS REPRESENTATIVE [facility] Other MISCELLANEOUS SAMPLES / Unknown 10/24/2023 5:01 PM HIGH SCHOOL ADMISSIONS REPRESENTATIVE 10/24/2023 5:01 PM HIGH SCHOOL ADMISSIONS REPRESENTATIVE Helen Houston MD LAB - BLOOD GASES OR DERABLES Performing Organization Address [place]/[facility] Co de Phone Number [facility] [address] [place] [address], [place] [phone] * ETT LINE PERFORMABLE (10/24/2023 3:37 PM HIGH SCHOOL ADMISSIONS REPRESENTATIVE) Narrative Diego Liz Anes Asst - 10/24/2023 3:37 PM HIGH SCHOOL ADMISSIONS REPRESENTATIVE Diego Liz Anes Asst 10/24/2023 3:37 PM Endotracheal Tube Placement: Patient Location: OR. Intubation Event Date/Time: 10/24/2023 3:01 PM Procedure: intubation ([id number]). Procedure Section: Sedation: under general anesthesia. Indications for Airway Management: anesthesia Induction: standard IV Patient Position: sniffing and supine Mask Ventilation: easy with oral airway. Blade Type: Mikael Blade Size: 3 Laryngoscopy View: grade 1 (full cords) Intubation Adjuncts: cricoid pressure Tube: endotracheal tube (no stylet) Placement: oral Tube type: cuff - inflated Tube Size (MM): 7 Depth of Insertion (CM): 23 Measured From: lips Cuff Inflated With: air Number of Attempts: 1. Placement Verified By: direct visualization, bilateral breath sounds, chest auscultation and CO2 monitor Tube secured with: adhesive tape and ETT ag. Dentition unchanged? Yes Difficult Airway? No. Procedure Start Time: 10/24/2023 3:01 PM. Staff Section Anesthesia Provider: Helen Houston MD, Performed the procedure Helen Houston MD GENERAL ANESTHESIA O RDERABLES * (ABNORMAL) TEG 6S PLATELET MAPPING (10/24/2023 12:57 PM HIGH SCHOOL ADMISSIONS REPRESENTATIVE) TEGPLM (Max Amplitude) [place] <42.0(L) 53.0 - 68.0 mm 10/24/2023 4:26 PM [facility] TEGPLM (Max Amplitude) ACTF 10/24/2023 4:26 PM [facility] TEGPLM (Max Amplitude) ADP 10/24/2023 4:26 PM [facility] Comment:Analysis unable to r each Max Amplitude of 20mm. TEGPLM (Max Amplitude) AA 10/24/2023 4:26 PM [facility] Comment:Analysis unable to r each Max Amplitude of 20mm. TEGPLM %Inhibition ADP 10/24/2023 4:26 PM [facility] Comment: 1 or more values are outside of the TEG maximum reportable ranges, calculation cannot be determined. 1 or more values are outside of the TEG maximum reportable ranges, calculation cannot be determined. TEGPLM %Inhibition AA 10/24/2023 4:26 PM [facility] Comment: 1 or more values are outside of the TEG maximum reportable ranges, calculation cannot be determined. 1 or more values are outside of the TEG maximum reportable ranges, calculation cannot be determined. TEGPLM %Aggregation ADP 10/24/2023 4:26 PM [facility] Comment: 1 or more values are outside of the TEG maximum reportable ranges, calculation cannot be determined. 1 or more values are outside of the TEG maximum reportable ranges, calculation cannot be determined. TEGPLM % Aggregation AA 10/24/2023 4:26 PM [facility] Comment: 1 or more values are outside of the TEG maximum reportable ranges, calculation cannot be determined. 1 or more values are outside of the TEG maximum reportable ranges, calculation cannot be determined. Blood BLOOD SPECIMEN / Unknown Venipuncture / Unknown 10/24/2023 12:57 PM HIGH SCHOOL ADMISSIONS REPRESENTATIVE 10/24/2023 1:03 PM HIGH SCHOOL ADMISSIONS REPRESENTATIVE Antonino Saunders MD LAB - HEMATOLOGY ORD ERABLES [facility] Organization Address City/State/ZIP Co de Phone Number [address] [address], [facility] [phone] * XR FOREARM LEFT 1VW (10/24/2023 12:30 PM HIGH SCHOOL ADMISSIONS REPRESENTATIVE) Anatomical Region Laterality Modality Upper Extremity Radiographic Carin ging 10/24/2023 2:12 PM HIGH SCHOOL ADMISSIONS REPRESENTATIVE Impressions 2023 4:24 PM HIGH SCHOOL ADMISSIONS REPRESENTATIVE IMPRESSION: 1.Severely displaced comminuted fracture of the left radius and ulna with distal intra-articular extension of the left radial fracture. 2.Osseous fragment adjacent to the head of first metacarpal bone which could represent an accessory ossicle; however, a mildly displaced fracture cannot be excluded due to single PA view. Report dictated by Roberto Bourgeois DO (vice president quality improvement). I, Bucky Ureña DO have personally reviewed and interpreted this examination/study. > Interpreting Provider: Bucky Ureña DO on 2023 4:24 PM Narrative 2023 4:24 PM HIGH SCHOOL ADMISSIONS REPRESENTATIVE PROCEDURE: XR HAND LEFT 2VW, XR FOREARM LEFT 1VW, DATE/TIME OF EXAM: 10/24/2023 12:30 PM, LOCATION [facility] INDICATION: S57.82XA: Crushing injury of left forearm, initial encounter ADDITIONAL CLINICAL INFORMATION: Ordering Provider Reason For Exam: crush COMPARISON: None. FINDINGS: LEFT FOREARM: Severely displaced comminuted fracture of the left radius and ulna. There is distal intra-articular extension of the left radial fracture. There is shortening and radial angulation of the fractures. Bone density and texture are normal. Severe soft tissue swelling is present with soft tissue wounds noted over the medial and lateral aspects. LEFT HAND: Limited evaluation of the left hand due to single PA view. There is an osseous fragment adjacent to the head of the first metacarpal bone which could represent an accessory ossicle; however, a mildly displaced fracture cannot be excluded due to single PA view. Left radius and ulna comminuted fractures as described above. Moderate degenerative changes of the interphalangeal joints. Bone density and texture are normal. Severe soft tissue swelling and defects noted adjacent to the fracture site. Procedure Note Bucky Ureña DO - 2023 PROCEDURE: XR HAND LEFT 2VW, XR FOREARM LEFT 1VW, DATE/TIME OF EXAM: 10/24/2023 12:30 PM, LOCATION [facility] INDICATION: S57.82XA: Crushing injury of left forearm, initial encounter ADDITIONAL CLINICAL INFORMATION: Ordering Provider Reason For Exam: crush COMPARISON: None. FINDINGS: LEFT FOREARM: Severely displaced comminuted fracture of the left radius and ulna.There is distal intra-articular extension of the left radial fracture. Thereis shortening and radial angulation of the fractures. Bone density andtexture are normal. Severe soft tissue swelling is present with soft tissuewounds noted over the medial and lateral aspects. LEFT HAND: Limited evaluation of the left hand due to single PA view. There is an osseous fragment adjacent to the head of the first metacarpal bone which could represent an accessory ossicle; however, a mildly displacedfracture cannot be excluded due to single PA view. Left radius and ulnacomminuted fractures as described above. Moderate degenerative changes of the interphalangeal joints. Bone density and texture are normal. Severe soft tissue swelling and defects noted adjacent to the fracture site. IMPRESSION: 1.Severely displaced comminuted fracture of the left radius and ulnawith distal intra-articular extension of the left radial fracture. 2.Osseous fragment adjacent to the head of first metacarpal bone which could represent an accessory ossicle; however, a mildly displacedfracture cannot be excluded due to single PA view. Report dictated by Roberto Bourgeois DO (vice president quality improvement). I, Bucky Ureña DO have personally reviewed and interpreted this examination/study. > Interpreting Provider: Bucky Ureña DO on 2023 4:24 PM Antonino Saunders MD DIAGNOSTIC IMAGING O RDERABLES * XR HAND LEFT 2VW (10/24/2023 12:29 PM HIGH SCHOOL ADMISSIONS REPRESENTATIVE) Anatomical Region Laterality Modality Wrist / Hand Radiographic Carin ging 10/24/2023 2:12 PM HIGH SCHOOL ADMISSIONS REPRESENTATIVE Impressions 2023 4:24 PM HIGH SCHOOL ADMISSIONS REPRESENTATIVE IMPRESSION: 1.Severely displaced comminuted fracture of the left radius and ulna with distal intra-articular extension of the left radial fracture. 2.Osseous fragment adjacent to the head of first metacarpal bone which could represent an accessory ossicle; however, a mildly displaced fracture cannot be excluded due to single PA view. Report dictated by Roberto Bourgeois DO (vice president quality improvement). I, Bucky Ureña DO have personally reviewed and interpreted this examination/study. > Interpreting Provider: Bucky Ureña DO on 2023 4:24 PM Narrative 2023 4:24 PM HIGH SCHOOL ADMISSIONS REPRESENTATIVE PROCEDURE: XR HAND LEFT 2VW, XR FOREARM LEFT 1VW, DATE/TIME OF EXAM: 10/24/2023 12:30 PM, LOCATION [facility] INDICATION: S57.82XA: Crushing injury of left forearm, initial encounter ADDITIONAL CLINICAL INFORMATION: Ordering Provider Reason For Exam: crush COMPARISON: None. FINDINGS: LEFT FOREARM: Severely displaced comminuted fracture of the left radius and ulna. There is distal intra-articular extension of the left radial fracture. There is shortening and radial angulation of the fractures. Bone density and texture are normal. Severe soft tissue swelling is present with soft tissue wounds noted over the medial and lateral aspects. LEFT HAND: Limited evaluation of the left hand due to single PA view. There is an osseous fragment adjacent to the head of the first metacarpal bone which could represent an accessory ossicle; however, a mildly displaced fracture cannot be excluded due to single PA view. Left radius and ulna comminuted fractures as described above. Moderate degenerative changes of the interphalangeal joints. Bone density and texture are normal. Severe soft tissue swelling and defects noted adjacent to the fracture site. Procedure Note Bucky Ureña DO - 2023 PROCEDURE: XR HAND LEFT 2VW, XR FOREARM LEFT 1VW, DATE/TIME OF EXAM: 10/24/2023 12:30 PM, [facility] INDICATION: S57.82XA: Crushing injury of left forearm, initial encounter ADDITIONAL CLINICAL INFORMATION: Ordering Provider Reason For Exam: crush COMPARISON: None. FINDINGS: LEFT FOREARM: Severely displaced comminuted fracture of the left radius and ulna.There is distal intra-articular extension of the left radial fracture. Thereis shortening and radial angulation of the fractures. Bone density andtexture are normal. Severe soft tissue swelling is present with soft tissuewounds noted over the medial and lateral aspects. LEFT HAND: Limited evaluation of the left hand due to single PA view. There is an osseous fragment adjacent to the head of the first metacarpal bone which could represent an accessory ossicle; however, a mildly displacedfracture cannot be excluded due to single PA view. Left radius and ulnacomminuted fractures as described above. Moderate degenerative changes of the interphalangeal joints. Bone density and texture are normal. Severe soft tissue swelling and defects noted adjacent to the fracture site. IMPRESSION: 1.Severely displaced comminuted fracture of the left radius and ulnawith distal intra-articular extension of the left radial fracture. 2.Osseous fragment adjacent to the head of first metacarpal bone which could represent an accessory ossicle; however, a mildly displacedfracture cannot be excluded due to single PA view. Report dictated by Roberto Bourgeois DO (vice president quality improvement). I, Bucky Ureña DO have personally reviewed and interpreted this examination/study. > Interpreting Provider: Bucky Ureña DO on 2023 4:24 PM Antonino Saunders MD DIAGNOSTIC IMAGING O RDERABLES * TEG 6 GLOBAL HEMOSTASIS W/ LYSIS (10/24/2023 12:23 PM HIGH SCHOOL ADMISSIONS REPRESENTATIVE) Citrated Kaolin R (Reaction Time) 6.5 4.6 - 9.1 min 10/24/2023 1:50 PM [facility] Citrated Kaolin LY30 (Lysis) 0.0 0.0 - 2.6 % 10/24/2023 1:50 PM [facility] Citrated Functional Fibrinogen MA (Max Amplitude) 17.4 15.0 - 32.0 mm 10/24/2023 1:50 PM [facility] Citrated RapidTEG MA (Max Amplitude) 61.1 52.0 - 70.0 mm 10/24/2023 1:50 PM [facility] Blood BLOOD SPECIMEN / Unknown Venipuncture / Unknown 10/24/2023 12:23 PM HIGH SCHOOL ADMISSIONS REPRESENTATIVE 10/24/2023 12:38 PM HIGH SCHOOL ADMISSIONS REPRESENTATIVE Antonino Saunders MD LAB - HEMATOLOGY ORD ERABLES [facility] [address] [place] [id number], [facility] [phone] Care Teams Dipper Operator Relationship Specialty Start Date End Date Jaret Saini MD [address] [place] [phone] PCP - General 02/21/12"
--- OUTSIDE RECORDS SUMMARY | 2024-12-17 09:30 | XMS_ITS | Encounter Summary ---
Author Organization [facility] Health Address [address] [place] [address] Care Team Providers Care Edger Hand Name Role Phone Jaret Saini MD Primary Care Provider [phone] Encounter Details Date Type Department Care Team (Late st Contact Info) Description 12/15/2023 Telephone [facility] - Centralized Scheduling [address] [place] [address] Pao Johnson, PAM[facility] [address] [place] [address] Social History Tobacco Use Types Packs/Day Years Used Date Smoking Tobacco: Never Smokeless Tobacco: Current Chew Alcohol Use Standard Drinks/Week Comments Yes 0 (1 standard drink = 0.6 oz pur e alcohol) rarely AUDIT-C Answer Date Recorded Q1: How often do you have a drink containing alc ohol? Monthly or less 2023 Q2: How many drinks containi ng alcohol do you have on a typical day when you are drinking? 1 or 2 2023 Q3: How often do you have si x or more drinks on one occasion? Never 2023 Overall Financial Resource Strain (CARDIA) Answe r Date Recorded How hard is it for you to pa y for the very basics like food, housing, medical care, and heating? Not hard at all 2023 PHQ-2 Answer Date Recorded Patient Health Questionnaire-2 Score 0 12/19/2023 [facility] - Occupational Stress [...] place to sleep or slept in a fci (including now)? No 2023 Sex and Gender Information Value Date Recorded Sex Assigned at Male 2023 10:40 AM REFUGE MANAGER Gender Identity Male 2023 10:40 AM REFUGE MANAGER Sexual Orientation Not on file documented as of this encounter Functional Status Functional Status Response Date of Assess ment Is person deaf or have serious hearing difficult y? Yes 10/27/2023 Is person blind or have serious difficulty seein g? No 10/27/2023 Does person have serious dif ficulty walking/climbing stairs? No 10/27/2023 Does person have difficulty dressing/bathing? No 10/27/2023 Does person have difficulty doing errands alone? No 10/27/2023 Cognitive Status Response Date of Assessm ent Does person have difficulty concentrating/remembering/making decisions? No 10/27/2023 documented as of this encounter Plan of Treatment Not on file documented as of this encounter Visit Diagnoses Not on filedocumented in this encounter Care Teams Edger Hand Relationship Specialty Start Date End Date Jaret Saini MD [address] [place] [phone] PCP - General 02/21/12 documented as of this encounter
--- OUTSIDE RECORDS SUMMARY | 2024-12-17 09:30 | XMS_ITS | Referral Summary ---
Author Organization [facility] Address [address] [place] [address] Care Team Providers Care Staffing Account Manager Name Role Phone Jaret Saini MD Primary Care Provider [phone] Source Comments [facility],non-owned Affiliates and Associated Physician Practices is amultiple site organization consisting of ambulatory clinics and hospital sitesin [place], [place], [place]. This disclosure is being madepursuant to the Care Everywhere program and may not contain all information available regarding this patient. Last updated 18.[facility] Encounters Date Type Department Care Team Description 12/16/2024 Travel 12/16/2024 1:45 PM CEMENT RUBBER Office Visit [facility] - Plastic Surgery [address] [place] [address] [place] [id number] Tashi Matthew MD Crushing injury of left forearm, initial encounter (Primary Dx) from Last 3 Months Allergies Active Allergy Reactions Criticality Noted Date Comments Posaconazole Nausea and/or Vomiting 12/19/2023 Pt reported reaction when he received this drug IV. He stated his face became flushed and got nauseous. Medications * Be aware that medications may not be up to date on this document. Alwaysverify current medications with the patient. Medication Sig Dispensed Refills Start Date End Date Status Nutritional Supplements (Brennan) POWD Take 1 packet by mouth 2 times daily Mix with water, juice, soda. 11/24/2023 Active acetaminophen (Tylenol) 500 MG tablet Take 1 (one) tablet by mouth every 6 hours Maximum allowable Acetaminophen amount = 4 Grams (4000 mg) / 24 hours. 11/30/2023 Active hydrOXYzine HCl (Atarax) 10 MG tabletIndications :Anxiety Take 1 (one) tablet by mouth 4 times daily as needed for Itching Reasons: Feeling Anxious 11/30/2023 Active melatonin 3 MG tablet Take 1 (one) tablet by mouth nightly as needed for Insomnia 11/30/2023 Active bumetanide (Bumex) 1 MG tablet Take 1 (one) tablet by mouth once daily 12/20/2023 Active SV Iron 325 (65 Fe) MG tablet Take 1 (one) tablet by mouth once daily 01/18/2024 Active PARoxetine (Paxil) 40 MG tablet Take 1 (one) tablet by mouth once daily 01/18/2024 Active lisinopril (Prinivil; Zestril) 10 MG tablet Take 1 (one) tablet by mouth once daily 10/21/2024 Active triamcinolone acetonide (Kenalog) 0.1 % cream APPLY CREAM EXTERNALLY TWICE DAILY TO THE RIGHT OUTER EAR 04/23/2024 Active white petroleum (Vaseline) ointment Apply to affected area once daily to LUE as per wound care instructions daily with dressing changes. 11/30/2023 5 Discontinue d(List Clean-Up) posaconazole (Noxafil) 100 MG tablet Take 3 (three) tablets by mouth daily with dinner 90 tablet 4 12/14/2023 5 Discontinue d(List Clean-Up) Active Problems Problem Noted Date Diagnosed Date [...] hearing loss of both ears 02/22/2012 Immunizations Name Administration Dates Next Due TDAP (7yrs+) 10/24/2023 Social History Tobacco Use Types Packs/Day Years [...] Recorded Patient Health Questionnaire-2 Score 0 01/23/2024 [facility] - Occupational [...] place to sleep or slept in a [place] (including now)? No 2023 Sex and Gender Information Value Date Recorded Sex Assigned at Male 2023 10:40 AM CEMENT RUBBER Gender Identity Male 2023 10:40 AM CEMENT RUBBER Sexual Orientation Not on file Last Filed Vital Signs Vital Sign Reading Time Taken Comments Blood Pressure 135/84 12/16/2024 2:29 PM CEMENT RUBBER Pulse 70 12/16/2024 2:29 PM CEMENT RUBBER Temperature 36.9 C (98.4 F) 12/16/2024 2:29 PM CEMENT RUBBER Respiratory Rate 18 07/22/2024 1:02 PM CDT Oxygen Saturation 93% 12/16/2024 2:29 PM CEMENT RUBBER Inhaled Oxygen Concentration 35% 11/20/2023 4 :00 AM CEMENT RUBBER Weight 104.8 kg (231 lb) 12/16/2024 2:29 PM CEMENT RUBBER Height 170.2 cm (5' 7 ) 12/16/2024 2:29 PM CEMENT RUBBER Body Mass Index 36.18 12/16/2024 2:29 PM CEMENT RUBBER Functional Status Functional Status Response Date of [...] person have difficulty concentrating/remembering/making decisions? No 03/05/2024 Plan of Treatment Not on file Medical Devices Implanted Type Area Project Manager Device Identifier Shelf Expiration Date Model / Serial / Lot Screw 2.7mm 5mm 14mm T8 Slf-Tap Strdr Implanted:Qty: 1 on 10/24/2023 by Tashi Matthew MD at [facility] [employer] [facility] 202.874 / / Screw 3.5mm 2.9mm 20mm T15 Ft Slf-Tap Implanted:Qty: 1 on 10/24/2023 by Tashi Matthew MD at [facility] [employer] [facility] 212.106 / / Screw 3.5mm 6mm 14mm Ft Samuel Slf-Tap Sm Implanted:Qty: 3 on 10/24/2023 by Tashi Matthew MD at [facility] 204.814 / / Screw 3.5mm 6mm 16mm 2.5mm Ft Slf-Tap Implanted:Qty: 5 on 10/24/2023 by Tashi Matthew MD at [facility] 204.816 / / Plate [id number] 10 Hl Lmt Cntct Tpr Implanted:Qty: 1 on 10/24/2023 by Tashi Matthew MD at [facility] 223.601 / / Plate 12 Hl Lmt Cntct Tpr End [id number] Implanted:Qty: 1 on 10/24/2023 by Tashi Matthew MD at [facility] 223.621 / / Screw 2.7mm 5mm 16mm T8 Slf-Tap Strdr Implanted:Qty: 2 on 10/24/2023 by Tashi Matthew MD at [facility] 202.876 / / Screw 2.7mm 5mm 18mm T8 Samuel Slf-Tap Implanted:Qty: 2 on 10/24/2023 by Tashi Matthew MD at [facility] 202.878 / / Screw 2.7mm 2.1mm 20mm T8 Slf-Tap Lck Implanted:Qty: 1 on 10/24/2023 by Tashi Matthew MD at [facility] 202.220 / / Plate 2 Hle/Hd 3 Hl Shft Lopro Cut To Implanted:Qty: 1 on 10/24/2023 by Tashi Matthew MD at [facility] 249.685 / / Screw 3.5mm 2.9mm 10mm T15 Ft Slf-Tap Implanted:Qty: 1 on 10/24/2023 by Tashi Matthew MD at [facility] [employer] [facility] 212.101 / / Screw 3.5mm 2.9mm 14mm T15 Ft Slf-Tap Implanted:Qty: 1 on 10/24/2023 by Tashi Matthew MD at [facility] [employer] 212.103 / / Screw 3.5mm 2.9mm 16mm T15 Ft Slf-Tap Implanted:Qty: 3 on 10/24/2023 by Tashi Matthew MD at [facility] [employer] 212.104 / / Screw 3.5mm 2.9mm 18mm T15 Ft Slf-Tap Implanted:Qty: 1 on 10/24/2023 by Tashi Matthew MD at [facility] 212.105 / / Mtrx Tissue [id number] Cytal Prcn Bldr 3 - [id number] Implanted:Qty: 1 on 10/27/2023 by Tashi Matthew MD at [facility] Left: Arm [employer] 03/22/2025 [id number] / [id number] / [id number] 3.5mm Cannulated Compression Headless Screw 26mm Implanted:Qty: 1 on 10/27/2023 by Tashi Matthew MD at [facility] Left: Arm [employer] [id number] / / Sys Impl Internalbrace Forefoot Peek Implanted:Qty: 1 on 11/17/2023 by Tashi Matthew MD at [facility] Left: Arm [employer] 04/21/2028 AR-1530P-C P / / [id number] Set Impl Internalbrace Hand Wrst Kt Implanted:Qty: 1 on 11/17/2023 by Tashi Matthew MD at [facility] Left: Arm [employer] 07/22/2024 AR-8978-CP / / [id number] [place] Sut Cscr Fwr 2.2mm 2 Ndl Wire 4mm Implanted:Qty: 1 on 11/17/2023 by Tashi Matthew MD at [facility] Left: Arm [employer] 12/21/2027 AR-1318FT / / [id number] Explanted Type Area Project Manager Device Identifier Shelf Expiration Date Model / Serial / Lot K-Wire 1.6mm (0.062) X 152 (6) Explanted:Qty: 2 on 11/17/2023 by Tashi Matthew MD at [facility] Left: Arm 08/08/2026 [id number] / / [id number] Procedures Procedure Name Priority Date/Time Associated Diagnosis Comments HEPATITIS C AB SCREEN RFLX NAAT QUANT STAT 11/06/2023 6:06 PM CEMENT RUBBER from Last 3 Months or Most Recently Relevant to Health Maintenance Results * HEPATITIS C AB SCREEN RFLX NAAT QUANT (11/06/2023 6:06 PM CEMENT RUBBER) Hepatitis C Antibody Non-react parish Non-reac tive 11/06/2023 7:13 PM CEMENT RUBBER [facility] Comment:Hepatitis C Antibody screen indicates [...] Lab Venipuncture / Unknown 11/06/2023 6:06 PM CEMENT RUBBER 11/06/2023 6:16 PM CEMENT RUBBER Tashi Matthew MD LAB - CHEMISTRY [facility] Organization Address City/State/ZIP Co de Phone Number [facility] [address] [place] [address], [facility] [phone] from Last 3 Months or Most Recently Relevant to Health Maintenance Advance Directives * Full Code (Latest Code Status on File) Date Activated Date Inactivated Comments 01/24/2024 12:49 AM 01/25/2024 6:41 PM * Full Code Date Activated Date Inactivated Comments 11/17/2023 6:44 PM 12/01/2023 10:38 PM * Full Code Date Activated Date Inactivated Comments 10/24/2023 7:05 PM 11/17/2023 6:44 PM Care Teams Staffing Account Manager Relationship Specialty Start Date End Date Jaret Saini MD [address] [place] [phone] PCP - General 02/21/12
--- OUTSIDE RECORDS SUMMARY | 2024-12-17 09:30 | XMS_ITS | Clinical Summary ---
Author Organization [facility] Address [address] [place] [address] Care Team Providers Care General Internist And Physician Leader Name Role Phone Jaret Saini MD Primary Care Provider [phone] Source Comments [facility],non-owned Affiliates and Associated Physician Practices is amultiple site organization consisting of ambulatory clinics and hospital sitesin [place], [place], [place] and [place]. This disclosure is being madepursuant to the Care Everywhere program and may not contain all information available regarding this patient. Last updated 18.[facility] Allergies Active Allergy Reactions Criticality Noted Date [...] neural hearing loss of both ears 02/22/2012 Encounters Date Type Department Care Team Description 12/16/2024 1:45 PM TIGHTENING MACHINE OPERATOR Office Visit [facility] - Plastic Surgery [address] [place] [address], [place] [id number] Tashi Matthew MD Crushing injury of left forearm, initial encounter (Primary Dx) 12/16/2024 Travel from Last 3 Months Immunizations Name Administration Dates Next Due TDAP [...] Recorded Patient Health Questionnaire-2 Score 0 01/23/2024 [facility] - Occupational [...] Sex Assigned at Male 2023 10:40 AM TIGHTENING MACHINE OPERATOR Gender Identity Male 2023 10:40 AM TIGHTENING MACHINE OPERATOR Sexual Orientation Not on file Last Filed Vital Signs Vital Sign Reading Time Taken Comments Blood Pressure 135/84 12/16/2024 2:29 PM TIGHTENING MACHINE OPERATOR Pulse 70 12/16/2024 2:29 PM TIGHTENING MACHINE OPERATOR Temperature 36.9 C (98.4 F) 12/16/2024 2:29 PM TIGHTENING MACHINE OPERATOR Respiratory Rate 18 07/22/2024 1:02 PM CDT Oxygen Saturation 93% 12/16/2024 2:29 PM TIGHTENING MACHINE OPERATOR Inhaled Oxygen Concentration 35% 11/20/2023 4 :00 AM TIGHTENING MACHINE OPERATOR Weight 104.8 kg (231 lb) 12/16/2024 2:29 PM TIGHTENING MACHINE OPERATOR Height 170.2 cm (5' 7 ) 12/16/2024 2:29 PM TIGHTENING MACHINE OPERATOR Body Mass Index 36.18 12/16/2024 2:29 PM TIGHTENING MACHINE OPERATOR Plan of Treatment Health Maintenance Due Date Last Done Comments PNEUMOCOCCAL VACCINE 50+ (1 of 2 - PCV) 1966 ZOSTER VACCINE (1 of 2) 1997 Respiratory Syncytial Virus (RSV) Vaccine Pt: or over 60 yrs (1 - 1-dose 75+ series) 2022 COVID-19 VACCINE (2 - 2023-2 5 season) 2024 02/28/2021 INFLUENZA VACCINE (#1) 2024 DEPRESSION SCREENING 10/23/2024 12/19/2023 MEDICARE AWV CALENDAR YEAR 2024 DTAP/TDAP/TD VACCINES (2 - T d or Tdap) 10/24/2033 10/24/2023 HEPATITIS C SCREENING Completed 11/06/2023 HEPATITIS B VACCINE Aged Out No longe r eligible based on patient's age to complete this topic HIB VACCINE Aged Out No longer eligi ble based on patient's age to complete this topic HPV VACCINE Aged Out No longer eligi ble based on patient's age to complete this topic MENINGOCOCCAL (Group B) VACCINE Aged Out No longer eligible based on patient's age to complete this topic MENINGOCOCCAL VACCINE Aged Out No masood torrey eligible based on patient's age to complete this topic Medical Devices Implanted Type Area Retail Gift Card Merchandising Device Identifier Shelf Expiration Date Model / Serial / Lot Screw 2.7mm 5mm 14mm T8 Slf-Tap Strdr Implanted:Qty: 1 on 10/24/2023 by Tashi Matthew MD at [facility] 202.874 / / Screw 3.5mm 2.9mm 20mm T15 Ft Slf-Tap Implanted:Qty: 1 on 10/24/2023 by Tashi Matthew MD at [facility] 212.106 / / Screw 3.5mm 6mm 14mm Ft Samuel Slf-Tap Sm Implanted:Qty: 3 on 10/24/2023 by Tashi Matthew MD at [facility] 204.814 / / Screw 3.5mm 6mm 16mm 2.5mm Ft Slf-Tap Implanted:Qty: 5 on 10/24/2023 by Tashi Matthew MD at [facility] 204.816 / / Plate [id number] 10 Hl Lmt Cntct Tpr Implanted:Qty: 1 on 10/24/2023 by Tashi [facility] MD at [facility] 223.601 / / Plate 12 Hl Lmt Cntct Tpr End [id number] Implanted:Qty: 1 on 10/24/2023 by Tashi Matthew MD at [facility] 223.621 / / Screw 2.7mm 5mm 16mm T8 Slf-Tap Strdr Implanted:Qty: 2 on 10/24/2023 by Tashi Matthew MD at [facility] 202.876 / / Screw 2.7mm 5mm 18mm T8 Samuel Slf-Tap Implanted:Qty: 2 on 10/24/2023 by Tashi Matthew MD at [facility] 202.878 / / Screw 2.7mm 2.1mm 20mm T8 Slf-Tap Lck Implanted:Qty: 1 on 10/24/2023 by Tashi Matthew MD at [facility] [employer] 202.220 / / Plate 2 Hle/Hd 3 Hl Shft Lopro Cut To Implanted:Qty: 1 on 10/24/2023 by Tashi Matthew MD at [facility] 249.685 / / Screw 3.5mm 2.9mm 10mm T15 Ft Slf-Tap Implanted:Qty: 1 on 10/24/2023 by Tashi Matthew MD at [facility] 212.101 / / Screw 3.5mm 2.9mm 14mm T15 Ft Slf-Tap Implanted:Qty: 1 on 10/24/2023 by Tashi Matthew MD at [facility] 212.103 / / Screw 3.5mm 2.9mm 16mm T15 Ft Slf-Tap Implanted:Qty: 3 on 10/24/2023 by Tashi Matthew MD at [facility] 212.104 / / Screw 3.5mm 2.9mm 18mm T15 Ft Slf-Tap Implanted:Qty: 1 on 10/24/2023 by Tashi Matthew MD at [facility] 212.105 / / Mtrx Tissue [id number] Cytal Prcn Bldr 3 - [id number] Implanted:Qty: 1 on 10/27/2023 by Tashi Matthew MD at [facility] Left: Arm [employer] Erika 03/22/2025 [id number] / [id number] / [id number] 3.5mm Cannulated Compression Headless Screw 26mm Implanted:Qty: 1 on 10/27/2023 by Tashi Matthew MD at [facility] Left: Arm [employer] [id number] / / Sys Impl Internalbrace Forefoot Peek Implanted:Qty: 1 on 11/17/2023 by Tashi Matthew MD at [facility] Left: Arm [employer] 04/21/2028 AR-1530P-C P / / [id number] Set Impl Internalbrace Hand Wrst Kt Implanted:Qty: 1 on 11/17/2023 by Tashi Matthew MD at [facility] Left: Arm [employer] 07/22/2024 AR-8978-CP / / [id number] [place] Sut Cscr Fwr 2.2mm 2 Ndl Wire 4mm Implanted:Qty: 1 on 11/17/2023 by Tashi Matthew MD at [facility] Left: Arm [employer] 12/21/2027 AR-1318FT / / [id number] Explanted Type Area Retail Gift Card Merchandising Device Identifier Shelf Expiration Date Model / Serial / Lot K-Wire 1.6mm (0.062) X 152 (6) Explanted:Qty: 2 on 11/17/2023 by Tashi Matthew MD at [facility] Left: Arm 08/08/2026 [id number] / / [id number] Procedures Procedure Name Priority Date/Time Associated Diagnosis Comments HEPATITIS C AB SCREEN RFLX NAAT QUANT STAT 11/06/2023 6:06 PM TIGHTENING MACHINE OPERATOR from Last 3 Months or Most Recently Relevant to Health Maintenance Results * HEPATITIS C AB SCREEN RFLX NAAT QUANT (11/06/2023 6:06 PM TIGHTENING MACHINE OPERATOR) Hepatitis C Antibody Non-react parish Non-reac tive 11/06/2023 7:13 PM TIGHTENING MACHINE OPERATOR [facility] Comment:Hepatitis C Antibody screen indicates no serologic evidence of past or current infection with Hepatitis C Virus. Patients with unexplained liver disease who are immunocompromised or suspected of having acute Hepatitis C infection may benefit from Nucleic Acid Test (QUINCY) for Hepatitis C Viral RNA to confirm Hepatitis C status. Blood BLOOD SPECIMEN / Unknown Lab Venipuncture / Unknown 11/06/2023 6:06 PM TIGHTENING MACHINE OPERATOR 11/06/2023 6:16 PM TIGHTENING MACHINE OPERATOR Tashi Matthew MD LAB - CHEMISTRY NICK SEGURA [facility] [address] [place] [id number], [place] [phone] from Last 3 Months or Most Recently Relevant to Health Maintenance Advance Directives * Full Code (Latest Code Status on File) Date Activated Date Inactivated Comments 01/24/2024 12:49 AM 01/25/2024 6:41 PM * Full Code Date Activated Date Inactivated Comments 11/17/2023 6:44 PM 12/01/2023 10:38 PM * Full Code Date Activated Date Inactivated Comments 10/24/2023 7:05 PM 11/17/2023 6:44 PM Care Teams General Internist And Physician Leader Relationship Specialty Start Date End Date Jaret Saini MD [address] [place] [id number] PCP - General 02/21/12
[2024-12-17 10:09] LABS: Basophils Percent Auto 0.3 % (0.2-1.2); Eosinophils Absolute Auto 0.3 K/mm3 (0-0.3); Eosinophils Percent Auto 4.4 % (0-4.4); Hematocrit 42.7 % (42.0-52.0); Immature Granulocyte Absolute 0.06 K/mm3 (0.00-0.031); Immature Granulocyte Percent A 0.9 % (0-0.5); Lymphocytes Absolute Auto 2.02 K/mm3 (0.9-3.2); Mean Corpuscular HGB Conc 32.8 g/dl (32-36); Mean Corpuscular Hemoglobin 31.5 pg (26-34); Mean Corpuscular Volume 96.2 fl (80-100); Mean Platelet Volume 11.7 fl (7.4-10.4); Monocytes Absolute Auto 0.6 K/mm3 (0.1-0.6); Monocytes Percent Auto 9.5 % (2.6-8.5); Neutrophils Absolute Auto 3.5 K/mm3 (1.3-6.7); Neutrophils Percent Auto 53.9 % (45.5-73.1); Platelet Count Result 217 k/mm3 (150-375); Red Blood Count 4.44 M/mm3 (4.6-6.20); Red Cell Distribution Width 12.4 % (11.5-14.5); White Blood Count 6.5 K/mm3 (4.5-10.0)
[2024-12-17 10:22] LABS: Alanine Aminotransferase 24 U/L (6-50); Albumin Level 4.1 g/dL (3.5-5.1); Alkaline Phosphatase 112 U/L (38-126); Anion Gap 7 mmol/L (4-12); Aspartate Amino Transferase 44 U/L (17-59); Bilirubin,Total 0.7 mg/dL (0.2-1.3); Blood Urea Nitrogen 16 mg/dL (9-20); Calcium 9.4 mg/dL (8.4-10.2); Carbon Dioxide 30 mmol/L (22-30); Chloride 101 mmol/L (98-107); Cholesterol 212 mg/dL (0-200); Estimated Glomerular Filt Rate > 60; Glucose 124 mg/dL (65-110); HDL Direct 36 mg/dL; Potassium 4.9 mmol/L (3.4-5.0); Sodium 138 mmol/L (137-145); Triglycerides 384 mg/dL (<150)
[2024-12-17 10:24] LABS: Iron 108 ug/dL (49-181)
[2024-12-17 10:34] LABS: LDL Cholesterol Direct 80 mg/dL
[2024-12-17 10:50] LABS: Percent Iron Saturation 32 % (20-50)
[2024-12-17 10:54] LABS: Prostate Specific Antigen 0.7 ng/mL (< OR = 4.0)
[2024-12-17 11:58] LABS: Vitamin D 25 Hydroxy < 12.8 ng/mL
== END 2024-12-17 08:55 | disposition home or self-care (01) ==
PROVIDERS: PCP Internal Medicine; Visit Provider Clinical Nurse Specialist
DX: D64.9 Anemia, unspecified (principal); R73.01 Impaired fasting glucose; F41.9 Anxiety disorder, unspecified; I10 Essential (primary) hypertension; E78.5 Hyperlipidemia, unspecified; R74.8 Abnormal levels of other serum enzymes; Z12.5 Encounter for screening for malignant neoplasm of prostate; E55.9 Vitamin D deficiency, unspecified
CPT/HCPCS: 36415; 80053; 80061; 82306; 82607; 82728; 83036; 83540; 83550; 84153; 84443; 85025; G0103

== ENCOUNTER 2025-03-06 09:11 | Outpatient (CLI) | payer MEDICARE, SELFPAY ==
--- NOTE | ~2025-03-06 | XR_ITS ---
Clinical Indication: Inguinal hernia PA and lateral views of the chest: Comparison: 01/22/2024 Findings: Small left pleural effusion present. Right lung clear. Cardiomediastinal silhouette is wit hin normal limits. Bones and soft tissues are unremarkable. Impression: Small left pleural effusion. Reviewed, dictated and finalized at location . Impression: Small left pleural effusion.
--- OUTSIDE RECORDS SUMMARY | 2025-03-06 09:21 | XMS_ITS | Referral Summary ---
Author Organization [facility] Healthcare Address [address] [place] [id number] Care Team Providers Care Track Repairer Helper Name Role Phone Trena Romero NP Primary Care Provider Encounters Date Type Department Care Team Description 03/03/2025 4:40 PM CDT - 03/03/2025 11:59 PM CDT Hospital Encounter [facility] ([facility]) [address] [place] [id number] Abnormal finding on imaging Discharge Disposition: Discharge to home or self care 03/03/2025 10:39 AM CDT - 03/03/2025 11:59 PM CDT Hospital Encounter [facility] ([facility]) [address] [place] [id number] Abnormal result of other cardiovascular function study Discharge Disposition: Discharge to home or self care from Last 3 Months Allergies No known active allergies Social History Tobacco Use Types Packs/Day Years Used Date Smoking Tobacco: Never Assessed Sex and Gender Information Value Date Recorded Sex Assigned at Not on file Legal Sex Male 10:16 AM CDT Gender Identity Not on file Sexual Orientation Not on file Last Filed Vital Signs Vital Sign Reading Time Taken Comments Blood Pressure 158/75 03/03/2025 11:10 AM CDT Pulse 63 03/03/2025 11:10 AM CDT Temperature - - Respiratory Rate - - Oxygen Saturation - - Inhaled Oxygen Concentration - - Weight - - Height - - Body Mass Index - - Plan of Treatment Not on file Procedures Procedure Name Priority Date/Time Associated Diagnosis Comments CT CORONARY FRACTIONAL FLOW RESERVE Schedule Routine, Read Routine (OP Routine) 03/04/2025 8:25 AM CDT Abnormal finding on imaging CT HEART MORPHOLOGY AND CORONARY ARTERIES W CONTRAST Schedule Routine, Read Routine (OP Routine) 03/03/2025 11:30 AM CDT Abnormal result of other cardiovascular function study from Last 3 Months Results * CT Coronary Fractional Flow [place] (03/04/2025 8:25 AM CDT) Anatomical Region Laterality Modality Chest N/A Computed Tomogra phy 03/04/2025 12:1 4 PM CDT Impressions 03/04/2025 12:46 PM CDT ADDENDUM: Coronary CTA Fractional Flow [place] (FFR) The below FFR CT results are associated with the coronary CTA report at IMPRESSION: FFR CT Results: No hemodynamically significant lesions. No lesions with FFR CT d 0.8. In particular, the queried moderate stenosis in the proximal right coronary artery results in a nonsignificant change in FFR from 0.98 to 0.94. Recommendation: Consider medical therapy as front-line strategy. Dictated by: Leland Gutiérrez MD, PHD The radiology attending physician has personally reviewed this study, and had reviewed and/or edited this written report and agrees with it. Electronically signed by: Alli Springer M.D. Narrative Procedure Note Alli Springer MD PhD - 03/04/2025 IMPRESSION: ADDENDUM: Coronary CTA Fractional Flow [place] (FFR) The below FFR CT results are associated with the coronary CTA report at IMPRESSION: FFR CT Results: No hemodynamically significant lesions. No lesions with FFR CT d 0.8. In particular, the queried moderate stenosis in the proximal right coronary artery results in a nonsignificant change in FFR from 0.98 to 0.94. Recommendation: Consider medical therapy as front-line strategy. Dictated by: Leland Gutiérrez MD, PHD The radiology attending physician has personally reviewed this study, and had reviewed and/or edited this written report and agrees with it. Electronically signed by: Alli Springer M.D. Barbara Rojas MD IMG CT PROCEDURES Final Resu lt * CTA Heart and Coronary Arteries W Morphology when Performed (03/03/2025 11:30 AM CDT) Anatomical Region Laterality Modality Chest N/A Computed Tomogra phy 03/03/2025 2:45 PM CDT Impressions 03/03/2025 2:53 PM CDT 1. Diffuse, predominately nonobstructive, coronary artery atherosclerosis with focal calcified plaque in the proximal right coronary artery resulting in moderate stenosis. Recommend CT FFR for further characterization. 2. Coronary calcium score 733. 3. Pleural effusion with no prior for comparison. Dictated by: Diana Alegre M.D. The radiology attending physician has personally reviewed this study, and had reviewed and/or edited this written report and agrees with it. Electronically signed by: Hans Mcghee M.D., MPH Narrative 03/03/2025 2:53 PM CDT EXAMINATION: CORONARY CT ANGIOGRAM HISTORY: 79-year-old male with no documented cardiovascular history who is referred for evaluation of coronary artery disease. TECHNIQUE: CT angiography of the coronary arteries was performed after the administration of 93 mL of Optiray 350. Images were also obtained precontrast for the purposes of calcium scoring. 0 mg of metoprolol was administered intravenously, and 2 puffs of sublingual nitroglycerin was administered prior to the examination. The patient's heart rate and blood pressure at the time of the examination were 57 beats per minute and 168/75 mmHg. Images were transferred to a 3D workstation for additional post-processing. FINDINGS: The coronary arteries are right system dominant. There is no anomalous coronary origin or course. Left coronary system: LM: Calcified and noncalcified plaque distal left main resulting in mild (less than 25%) stenosis extending into proximal left anterior descending coronary artery. Left anterior descending: Calcified and noncalcified plaque in the proximal left anterior descending coronary artery resulting in mild (less than 25%) stenosis. Calcified plaque in the mid left anterior descending resulting in mild (less than 30%) stenosis, near the branch point of the 1st septal concrete grinder operator. No calcification in the small 1st diagonal branch. Ramus Branch: No calcification. Left circumflex: Calcified plaque in the left circumflex resulting in mild (less than 30%) stenosis. Calcified plaque in the 1st obtuse marginal resulting in mild (less than 30%) stenosis. Right coronary system: Calcified plaque in the proximal right coronary artery resulting in moderate (50-69%) stenosis. Mild motion artifact and junction of proximal to mid right coronary artery; no significant evidence of high-grade stenosis preceding or following artifact. The calculated calcium score is 733. Other findings: Right pleural effusion. Mild mitral annular calcification. Mild aortic valve calcification. Procedure Note Hans Mcghee MD - 03/03/2025 EXAMINATION: CORONARY CT ANGIOGRAM HISTORY: 79-year-old male with no documented cardiovascular history who is referred for evaluation of coronary artery disease. TECHNIQUE: CT angiography of the coronary arteries was performed after the administration of 93 mL of Optiray 350. Images were also obtained precontrast for the purposes of calcium scoring. 0 mg of metoprolol was administered intravenously, and 2 puffs of sublingual nitroglycerin was administered prior to the examination. The patient's heart rate and blood pressure at the time of the examination were 57 beats per minute and 168/75 mmHg. Images were transferred to a 3D workstation for additional post-processing. FINDINGS: The coronary arteries are right system dominant. There is no anomalous coronary origin or course. Left coronary system: LM: Calcified and noncalcified plaque distal left main resulting in mild (less than 25%) stenosis extending into proximal left anterior descending coronary artery. Left anterior descending: Calcified and noncalcified plaque in the proximal left anterior descending coronary artery resulting in mild (less than 25%) stenosis. Calcified plaque in the mid left anterior descending resulting in mild (less than 30%) stenosis, near the branch point of the 1st septal concrete grinder operator. No calcification in the small 1st diagonal branch. Ramus Branch: No calcification. Left circumflex: Calcified plaque in the left circumflex resulting in mild (less than 30%) stenosis. Calcified plaque in the 1st obtuse marginal resulting in mild (less than 30%) stenosis. Right coronary system: Calcified plaque in the proximal right coronary artery resulting in moderate (50-69%) stenosis. Mild motion artifact and junction of proximal to mid right coronary artery; no significant evidence of high-grade stenosis preceding or following artifact. The calculated calcium score is 733. Other findings: Right pleural effusion. Mild mitral annular calcification. Mild aortic valve calcification. IMPRESSION: 1. Diffuse, predominately nonobstructive, coronary artery atherosclerosis with focal calcified plaque in the proximal right coronary artery resulting in moderate stenosis. Recommend CT FFR for further characterization. 2. Coronary calcium score 733. 3. Pleural effusion with no prior for comparison. Dictated by: Diana Alegre M.D. The radiology attending physician has personally reviewed this study, and had reviewed and/or edited this written report and agrees with it. Electronically signed by: Hans Mcghee M.D., MPH Barbara Rojas MD IMG CT PROCEDURES Final Resu lt from Last 3 Months Insurance [employer] MEDICARE PPO [employer] MEDICARE PPO Care Teams Track Repairer Helper Relationship Specialty Start Date End Date Trena Romero NP [address] [place] [address] [address] [place] [address] PCP - General Cardiovascular Disease 03/03/25
--- OUTSIDE RECORDS SUMMARY | 2025-03-06 09:21 | XMS_ITS | Encounter Summary ---
Author Organization [facility] Health Address [address] [place] [address] Care Team Providers Care Silverware Buffing Machine Operator Name Role Phone Jaret Saini MD Primary Care Provider [phone] Encounter Details Date Type Department Care Team (Late st Contact Info) Description 12/15/2023 Telephone [facility] - Centralized Scheduling [address] [place] [address] Pao Johnson, [facility] [address] [place] [address] Social History Tobacco Use Types Packs/Day Years [...] Recorded Patient Health Questionnaire-2 Score 0 12/19/2023 [facility] - Occupational Stress [...] Sex Assigned at Male 2023 10:40 AM BALLISTIC EXPERT Legal Sex Male 11:49 AM BALLISTIC EXPERT Gender Identity Male 2023 10:40 AM BALLISTIC EXPERT Sexual Orientation Not on file documented as of this encounter Functional Status * Is person deaf or have serious hearing difficulty? Answer Date of Assessment Author Yes 10/27/2023 9:33 AM Geremias Young RN * Is person blind or have serious difficulty seeing? Answer Date of Assessment Author No 10/27/2023 9:33 AM Geremias Young RN * Does person have serious difficulty walking/climbing stairs? Answer Date of Assessment Author No 10/27/2023 9:33 AM Geremias Young RN * Does person have difficulty dressing/bathing? Answer Date of Assessment Author No 10/27/2023 9:33 AM Geremias Young RN * Does person have difficulty doing errands alone? Answer Date of Assessment Author No 10/27/2023 9:33 AM Geremias Young RN documented as of this encounter Mental Status * Does person have difficulty concentrating/remembering/making decisions? Answer Entry Date Author No 10/27/2023 9:33 AM Geremias Young RN documented in this encounter Plan of Treatment Not on file documented as of this encounter Visit Diagnoses Not on filedocumented in this encounter Care Teams Silverware Buffing Machine Operator Relationship Specialty Start Date End Date Jaret Saini MD [address] [place] [address] PCP - General 02/21/12 documented as of this encounter
--- OUTSIDE RECORDS SUMMARY | 2025-03-06 09:21 | XMS_ITS | Clinical Summary ---
Author Organization [facility] Healthcare Address [address] [place] [address] Care Team Providers Care Movie Shot Camera Operator Name Role Phone Trena Romero NP Primary Care Provider [phone] Allergies No known active allergies Encounters Date Type Department Care Team Description 03/03/2025 4:40 PM CDT - 03/03/2025 11:59 PM CDT Hospital Encounter [facility] ([facility]) [address] [place] [id number] Abnormal finding on imaging Discharge Disposition: Discharge to home or self care 03/03/2025 10:39 AM CDT - 03/03/2025 11:59 PM CDT Hospital Encounter [facility] [place] [facility] ([facility]) [address] [place] [phone] Abnormal result of other cardiovascular function study Discharge Disposition: Discharge to home or self care from Last 3 Months Surgical History Surgery Date Site/Laterality Comments PORT PLACEMENT CHEST >5 YEARS 11/13/2023 N/A Social History Tobacco Use Types Packs/Day Years Used Date Smoking Tobacco: Never Assessed Sex and Gender Information Value Date Recorded Sex Assigned at Not on file Legal Sex Male 10:16 AM CDT Gender Identity Not on file Sexual Orientation Not on file Obstetrics History Last Filed Vital Signs Vital Sign Reading Time Taken Comments Blood Pressure 158/75 03/03/2025 11:10 AM CDT Pulse 63 03/03/2025 11:10 AM CDT Temperature - - Respiratory Rate - - Oxygen Saturation - - Inhaled Oxygen Concentration - - Weight - - Height - - Body Mass Index - - Plan of Treatment Health Maintenance Due Date Last Done Comments Depression Screening 1947 Fall Risk Assessment 1945 Hepatitis C Screening 1945 Hepatitis B Screening 1965 Pneumococcal vaccine 65+ (1 of 1 - PCV) 1997 Zoster Vaccine (1 of 2) 1997 Well Visit 65+ 2012 Covid-19 Vaccine (2 - season) 06/23/202406/2021 Influenza Vaccine (Season Ended) 2025 DTaP/Tdap/Td Vaccine (2 - Td or Tdap) 10/24/203311/2023 Procedures Procedure Name Priority Date/Time Associated Diagnosis Comments CT CORONARY FRACTIONAL FLOW RESERVE Schedule Routine, Read Routine (OP Routine) 03/04/2025 8:25 AM CDT Abnormal finding on imaging CT HEART MORPHOLOGY AND CORONARY ARTERIES W CONTRAST Schedule Routine, Read Routine (OP Routine) 03/03/2025 11:30 AM CDT Abnormal result of other cardiovascular function study from Last 3 Months Results * CT Coronary Fractional Flow [place] (03/04/2025 8:25 AM CDT) Anatomical Region Laterality Modality Chest N/A Computed Tomogra phy 03/04/2025 12:1 4 PM CDT Impressions 03/04/2025 12:46 PM CDT ADDENDUM: Coronary CTA Fractional Flow [place] (FFR) The below FFR CT results are [...] 03/04/2025 IMPRESSION: ADDENDUM: Coronary CTA Fractional Flow [place] (FFR) The below FFR CT results are [...] it. Electronically signed by: Alli Springer M.D. us Barbara Rojas MD IMG CT PROCEDURES Final [...] the branch point of the 1st septal employee health rn. No calcification in the small 1st diagonal [...] the branch point of the 1st septal employee health rn. No calcification in the small 1st diagonal [...] Resu lt from Last 3 Months Insurance HU[employer]NA CHOICE MEDICARE PPO HU[employer]ICE MEDICARE PPO Care Teams Movie Shot Camera Operator Relationship Specialty Start Date End Date Trena Romero ONLINE MERCHANDISING COORDINATOR [address] [place] [address] [address] PCP - General Cardiovascular Disease 03/03/25
--- OUTSIDE RECORDS SUMMARY | 2025-03-06 09:21 | XMS_ITS | Clinical Summary ---
Author Organization [facility] Address [address] [place] [address] Care Team Providers Care Dress Marker Name Role Phone Jaret Saini MD Primary Care Provider [phone] Source Comments [facility],non-owned Affiliates and Associated Physician Practices is amultiple site organization consisting of ambulatory clinics and hospital sitesin [place], [place], [place] and [place]. This disclosure is being madepursuant to the Care Everywhere program and may not contain all information available regarding this patient. Last updated 18.[facility] Allergies Active Allergy Reactions Criticality Noted Date Comments Posaconazole Nausea and/or Vomiting 12/19/2023 Pt reported reaction when he received this drug IV. He stated his face became flushed and got nauseous. Medications * Be aware that medications may not be up to date on this document. Alwaysverify current medications with the patient. Nutritional Supplements (Brennan) POWD Take 1 packet by mouth 2 times daily Mix with water, juice, soda. 4 Active acetaminophen (Tylenol) 500 MG tablet Take 1 (one) tablet by mouth every 6 hours Maximum allowable Acetaminophen amount = 4 Grams (4000 mg) / 24 hours. 4 Active hydrOXYzine HCl (Atarax) 10 MG tabletIndicatio ns:Anxiety Take 1 (one) tablet by mouth 4 times daily as needed for Itching Reasons: Feeling Anxious 4 Active melatonin 3 MG tablet Take 1 (one) tablet by mouth nightly as needed for Insomnia 4 Active bumetanide (Bumex) 1 MG tablet Take 1 (one) tablet by mouth once daily 4 Active SV Iron 325 (65 Fe) MG tablet Take 1 (one) tablet by mouth once daily 4 Active PARoxetine (Paxil) 40 MG tablet Take 1 (one) tablet by mouth once daily 4 Active lisinopril (Prinivil; Zestril) 10 MG tablet Take 1 (one) tablet by mouth once daily 4 Active triamcinolone acetonide (Kenalog) 0.1 % cream APPLY CREAM EXTERNALLY TWICE DAILY TO THE RIGHT OUTER EAR 4 Active Active Problems Problem Noted Date Diagnosed Date [...] Department Care Team Description 12/16/2024 1:45 PM BIZTALK ARCHITECT Office Visit [facility] - Plastic Surgery [address] [place] [address], [place] [id number] Tashi Matthew MD Crushing injury of left forearm, initial encounter (Primary Dx) 12/16/2024 Travel from Last 3 Months Immunizations Immunization Administration Dates Next Due TDAP (7yrs+) 10/24/2023 [...] Recorded Patient Health Questionnaire-2 Score 0 01/23/2024 [facility] [place] [facility] - Occupational Stress [...] place to sleep or slept in a correction (including now)? No 2023 Sex and Gender Information Value Date Recorded Sex Assigned at Male 2023 10:40 AM BIZTALK ARCHITECT Legal Sex Male 11:49 AM BIZTALK ARCHITECT Gender Identity Male 2023 10:40 AM BIZTALK ARCHITECT Sexual Orientation Not on file Last Filed Vital Signs Vital Sign Reading Time Taken Comments Blood Pressure 135/84 12/16/2024 2:29 PM BIZTALK ARCHITECT Pulse 70 12/16/2024 2:29 PM BIZTALK ARCHITECT Temperature 36.9 C (98.4 F) 12/16/2024 2:29 PM BIZTALK ARCHITECT Respiratory Rate 18 07/22/2024 1:02 PM CDT Oxygen Saturation 93% 12/16/2024 2:29 PM BIZTALK ARCHITECT Inhaled Oxygen Concentration 35% 11/20/2023 4 :00 AM BIZTALK ARCHITECT Weight 104.8 kg (231 lb) 12/16/2024 2:29 PM BIZTALK ARCHITECT Height 170.2 cm (5' 7 ) 12/16/2024 2:29 PM BIZTALK ARCHITECT Body Mass Index 36.18 12/16/2024 2:29 PM BIZTALK ARCHITECT Plan of Treatment Health Maintenance Due Date Last Done Comments PNEUMOCOCCAL VACCINE 50+ (1 of 2 - PCV) 1966 ZOSTER VACCINE (1 of 2) 1997 Respiratory Syncytial Virus (RSV) Vaccine Pt: or over 60 yrs (1 - 1-dose 75+ series) 2022 COVID-19 VACCINE (2 - 2023-2 5 season) 2024 02/28/2021 DEPRESSION SCREENING 10/23/2024 12/19/2023 MEDICARE AWV CALENDAR YEAR 2024 INFLUENZA VACCINE (Season Ended) 2025 DTAP/TDAP/TD VACCINES (2 - T d or [...] to complete this topic MENINGOCOCCAL (Group B) VACC INE SHARED DECISION-MAKING Aged Out No longer eligibl e based on patient's age to complete this topic MENINGOCOCCAL GROUPS A/C/Y/W VACCINE Aged Out No longer eligible b ased on patient's age to complete this topic Medical Devices Implanted Type Area Chaser Tar Device Identifier Shelf Expiration Date Model / Serial / Lot Screw 2.7mm 5mm 14mm T8 Slf-Tap Strdr Implanted:Qty: 1 on 10/24/2023 by Tashi Matthew MD at [facility] [id number] / / Screw 3.5mm 2.9mm 20mm T15 Ft Slf-Tap Implanted:Qty: 1 on 10/24/2023 by Tashi Matthew MD at [facility] 212.106 / / Screw 3.5mm 6mm 14mm Ft Samuel Slf-Tap Sm Implanted:Qty: 3 on 10/24/2023 by Tashi Matthew MD at [facility] 204.814 / / Screw 3.5mm 6mm 16mm 2.5mm Ft Slf-Tap Implanted:Qty: 5 on 10/24/2023 by Tashi Matthew MD at [facility] 204.816 / / Plate [id number] 10 Hl Lmt Cntct Tpr Implanted:Qty: 1 on 10/24/2023 by Tashi Matthew MD at [facility] 223.601 / / Plate 12 Hl Lmt Cntct Tpr End [id number] Implanted:Qty: 1 on 10/24/2023 by Tashi Matthew MD at [facility] 223.621 / / Screw 2.7mm 5mm 16mm T8 Slf-Tap Strdr Implanted:Qty: 2 on 10/24/2023 by Tashi Matthew MD at [facility] 202.876 / / Screw 2.7mm 5mm 18mm T8 Samuel Slf-Tap Implanted:Qty: 2 on 10/24/2023 by Tashi Matthew MD at [facility] 202.878 / / Screw 2.7mm 2.1mm 20mm T8 Slf-Tap Lck Implanted:Qty: 1 on 10/24/2023 by Tashi Matthew MD at [facility] 202.220 / / Plate 2 Hle/Hd 3 Hl Shft Lopro Cut To Implanted:Qty: 1 on 10/24/2023 by Tashi Matthew MD at [facility] [employer] 249.685 / / Screw 3.5mm 2.9mm 10mm T15 Ft Slf-Tap Implanted:Qty: 1 on 10/24/2023 by Tashi Matthew MD at [facility] [employer] 212.101 / / Screw 3.5mm 2.9mm 14mm T15 Ft Slf-Tap Implanted:Qty: 1 on 10/24/2023 by Tashi Matthew MD at [facility] [employer] 212.103 / / Screw 3.5mm 2.9mm 16mm T15 Ft Slf-Tap Implanted:Qty: 3 on 10/24/2023 by Tashi Matthew MD at [facility] 212.104 / / Screw 3.5mm 2.9mm 18mm T15 Ft Slf-Tap Implanted:Qty: 1 on 10/24/2023 by Tashi Matthew MD at [facility] [employer] 212.105 / / Mtrx Tissue [id number] Cytal Prcn Bldr 3 - [id number] Implanted:Qty: 1 on 10/27/2023 by Tashi Matthew MD at [facility] Left: Arm Tail Erika 03/22/2025 [id number] / [id number] / [id number] 3.5mm Cannulated Compression Headless Screw 26mm Implanted:Qty: 1 on 10/27/2023 by Tashi Matthew MD at [facility] Left: Arm [employer] [id number] / / Sys Impl Internalbrace Forefoot Peek Implanted:Qty: 1 on 11/17/2023 by Tashi Matthew MD at [facility] Left: Arm [employer] 04/21/2028 AR-1530P-C P / / [id number] Set Impl Internalbrace Hand Wrst Kt Implanted:Qty: 1 on 11/17/2023 by Tashi Matthew MD at [facility] Left: Arm [employer] 07/22/2024 AR-8978-CP / / [id number] Mar Lin Sut Cscr Fwr 2.2mm 2 Ndl Wire 4mm Implanted:Qty: 1 on 11/17/2023 by Tashi Matthew MD at [facility] Left: Arm [employer] 12/21/2027 AR-1318FT / / [id number] Explanted Type Area Chaser Tar Device Identifier Shelf Expiration Date Model / Serial / Lot K-Wire 1.6mm (0.062) X 152 (6) Explanted:Qty: 2 on 11/17/2023 by Tashi Matthew MD at [facility] Left: Arm 08/08/2026 [id number] / / [id number] Procedures Procedure Name Priority Date/Time Associated Diagnosis Comments HEPATITIS C AB SCREEN RFLX NAAT QUANT STAT 11/06/2023 6:06 PM BIZTALK ARCHITECT from Last 3 Months or Most Recently Relevant to Health Maintenance Results * HEPATITIS C AB SCREEN RFLX NAAT QUANT (11/06/2023 6:06 PM BIZTALK ARCHITECT) Hepatitis C Antibody Non-react parish Non-reac tive 11/06/2023 7:13 PM BIZTALK ARCHITECT [facility] Comment:Hepatitis C Antibody screen indicates [...] Lab Venipuncture / Unknown 11/06/2023 6:06 PM BIZTALK ARCHITECT 11/06/2023 6:16 PM BIZTALK ARCHITECT Tashi Matthew MD LAB - CHEMISTRY ORDERABLES Fin al Result [facility] [address] [place] [id number], [facility] [phone] from Last 3 Months or Most Recently Relevant to Health Maintenance Insurance HUMANA MEDICARE ADV HMO & PPO [facility] Care Address: [address] [address] Advance Directives * Full Code (Latest Code Status on File) Date Activated Date Inactivated Comments 01/24/2024 12:49 AM 01/25/2024 6:41 PM * Full Code Date Activated Date Inactivated Comments 11/17/2023 6:44 PM 12/01/2023 10:38 PM * Full Code Date Activated Date Inactivated Comments 10/24/2023 7:05 PM 11/17/2023 6:44 PM Care Teams Dress Marker Relationship Specialty Start Date End Date Jaret Saini MD [address] [place] [address] PCP - General 02/21/12
--- NOTE | 2025-03-06 09:30 | ECG_ITS ---
Test Date: 2025-03-06 09:41:58 Measurements Intervals [place] Rate: 65 P: 0 NM: 0 QRS: -33 QRSD: 119 T: 31 QT: 411 QTc: 430 Interpretive Statements NORMAL SINUS RHYTHM MARKED LEFT AXIS DEVIATION [QRS AXIS < -30] MODERATE INTRAVENTRICULAR CONDUCTION DELAY [105+ ms QRS DURATION, 80+ ms Q/S IN V1/V2, NO Q AND 60+ ms R IN I/aVL/V5/V6] ABNORMAL ECG No previous ECG available for comparison Electronically Signed On 03-07-2025 09:36:25 CDT by Bucky Canseco M.D.
[2025-03-06 10:01] LABS: Basophils Percent Auto 0.4 % (0.2-1.2); Eosinophils Absolute Auto 0.3 K/mm3 (0-0.3); Eosinophils Percent Auto 3.9 % (0-4.4); Hematocrit 42.4 % (42.0-52.0); Hemoglobin 13.7 g/dL (14.0-18.0); Immature Granulocyte Absolute 0.05 K/mm3 (0.00-0.031); Immature Granulocyte Percent A 0.7 % (0-0.5); Lymphocytes Absolute Auto 1.94 K/mm3 (0.9-3.2); Mean Corpuscular HGB Conc 32.3 g/dl (32-36); Mean Corpuscular Hemoglobin 30.7 pg (26-34); Mean Corpuscular Volume 95.1 fl (80-100); Mean Platelet Volume 11.5 fl (7.4-10.4); Monocytes Absolute Auto 0.6 K/mm3 (0.1-0.6); Monocytes Percent Auto 8.8 % (2.6-8.5); Neutrophils Percent Auto 58.2 % (45.5-73.1); Platelet Count Result 220 k/mm3 (150-375); Red Blood Count 4.46 M/mm3 (4.6-6.20); Red Cell Distribution Width 12.5 % (11.5-14.5); White Blood Count 6.9 K/mm3 (4.5-10.0)
[2025-03-06 10:14] LABS: Anion Gap 6 mmol/L (4-12); Blood Urea Nitrogen 14 mg/dL (9-20); Carbon Dioxide 28 mmol/L (22-30); Chloride 105 mmol/L (98-107); Estimated Glomerular Filt Rate > 60; Glucose 114 mg/dL (65-110); Potassium 4.5 mmol/L (3.4-5.0); Sodium 139 mmol/L (137-145)
== END 2025-03-06 09:12 | disposition home or self-care (01) ==
PROVIDERS: PCP Clinical Nurse Specialist; Visit Provider Surgery
DX: Z01.818 Encounter for other preprocedural examination (principal); K40.90 Unilateral inguinal hernia, without obstruction or gangrene, not specified as recurrent
CPT/HCPCS: 36415; 71046; 80048; 85025; 86850; 86900; 86901; 93005

== ENCOUNTER 2025-03-12 00:36 | Day surgery (SDC) | payer MEDICARE, SELFPAY ==
--- NOTE | 2025-02-27 12:36 | PC.NURSE ---
Report to the Outpatient Waiting Room, entrance under the green pavilion located off [facility], at time __6:30 AM on date __03/12/25 . Planned Procedure Time: _8:30 AM .? Time changes happen often and if your time is changed the preop area will call you the afternoon before. - You and your visitor will be asked to self-screen and do not enter if you have any COVID symptoms. Please call surgeon if you need to reschedule. - A mask is optional within the hospital at this time. Patients may have clear liquids (water, carbonated beverages, clear teas, apple juice) until 3 hours prior to surgery ( 5:30 AM) with a maximum of 20 ounces. - No food from midnight until time of surgery and no smoking, or chewing tobacco (or any form of nicotine). No chewing gum, candy or mints. - Take only the following medications with a SIP of water on the morning of surgery: ___HYDROXYZINE IF NEEDED,PAROXETINE DO NOT STOP ANY OF YOUR OTHER PRESCRIPTION MEDICATIONS PRIOR TO SURGERY EXCEPT THE FOLLOWING Hold all vitamins and supplements for 3 days per anesthesiologist.LAST DOSE 03/08/25 Medications to discontinue per physician NONE Date to take last dose Please no make-up, nail bulgarian, hairspray, perfume, deodorant, or body powder the day of surgery.? No jewelry (including any body piercings) or valuables the day of surgery, leave them at home.? Please take a shower or bath the night before, or the morning of, surgery with an antibacterial soap.? Wear comfortable, loose fitting clothing.? Children are encouraged to wear pajamas. - Jewelry must be removed prior to entering the operating room.? Rings and piercings that are not removed may be cut off. - The hospital will not accept responsibility for valuables.? - Please leave all valuables, including medications, at home the day of surgery. If you are going home after surgery, a licensed light truck driver must drive you home.? - NO public transportation without another adult if you receive anesthesia. - We recommend that an adult stay with you for 24 hours following discharge. - We also recommend that you do not drive, make important decision, drink alcoholic beverages, or take any drugs that were not prescribed by your health care provider for at least 24 hours after your discharge time. For Pediatric surgeries, we recommend two adults accompany the child home. Follow any additional instructions given to you from your surgeon. Telephone instructions given to ___SISTER NATE and asked if any additional questions and then verbalized understanding. Patient advised to call surgeon office or pre surgery nurse liaison [phone] if any additional questions.
[2025-02-27 12:55] VITALS: BMI 34.4
--- NOTE | 2025-03-11 13:28 | PM.SD2 ---
Same Day Admit/Disch: HPI History of Present Illness Chief complaint: Right Inguinal Hernia Narrative: Nigel Guerra is a 79 year old male with at least of at least 2 years of a right groin bulge. This has been getting larger and is uncomfortable. He was seen in the office and found to have a large right inguinal hernia. He is taken to surgery now for robotic laparoscopic repair with mesh. [facility] Past Medical History Medical History Hypertension Other aftercare involving the use of plastic surgery Anxiety Family History Family History Grandparent Diabetes mellitus Mother Patient's mother is , Onset Age: 89 Father Family history of malignant neoplasm, Onset Age: 94 Sibling Cancer Hypertension Heart valve problem Depression Heart disease Grandparent Cancer Grandparent Cancer Diabetes mellitus Other No family history of cardiovascular disease No family history of hypertension No family history of malignant neoplasm Social History Social History Social History: caffeine - Smoking status: Former smoker Tobacco type: cigarettes Second hand tobacco smoke exposure: No Smoking end date: 10/23/75 Alcohol intake: current Substance use: current Substance use type: marijuana Last use: DAILY Do You Feel Safe in your Home?: Yes Lack of Transportation: No Lack of Food: Never True Current Housing: I Have Housing Concerned About Future Housing: No Difficulty Paying Gas/Electric Bills: No Difficulty Paying for Meds: No Currently Unemployed: No Education: High School Diploma/GED Difficulty w/ Childcare or Family Care: No Living arrangements: alone Occupation/Education: other Gender identity (if verbalized by the patient): Male Sexual Orientation (if Verbalized by the Patient): Straight or Heterosexual Spiritual care concerns: No Agree to blood products: No Same Day Admit/Disch: Med Pre-admit Medications Home Medications ?Medication ?Instructions ?Recorded ?Confirmed ?Type ferrous sulfate 325 mg (65 mg 325 mg PO DAILY #30 tabs 01/18/24 03/12/25 Rx iron) tablet hydroxyzine HCl 10 mg tablet 10 mg PO TID PRN anxiety #270 tabs 01/18/24 02/27/25 Rx triamcinolone acetonide 0.1 % 1 applic topical BID #80 grams 07/02/24 05/08/25 Rx topical cream paroxetine HCl 40 mg tablet See Rx Instructions .Route 08/16/24 03/12/25 Rx .COMPLEX #90 tabs docusate sodium 50 mg capsule 50 mg PO DAILY 12/03/24 03/12/25 History (Stool Softener) turmeric 400 mg capsule 400 mg PO DAILY 12/03/24 03/12/25 History bumetanide 1 mg tablet See Rx Instructions .Route 12/20/24 03/12/25 Rx .COMPLEX #90 tabs lisinopril 20 mg tablet 20 mg PO DAILY 01/31/25 03/12/25 History ibuprofen 600 mg tablet 600 mg PO Q6H PRN pain #14 tabs 03/12/25 Rx oxycodone-acetaminophen 5 mg-325 0.5 - 1 tablet PO Q4H PRN pain #10 03/12/25 Rx mg tablet (Percocet) tabs Review of Systems Review of Systems All systems reviewed & are unremarkable except as noted in HPI and below (HPI) Exam Const: General: comfortable, no acute distress, alert and awake HENMT: Head: normocephalic and atraumatic Mouth: Yes Normal oral and palatal mucosa present Eyes: Conjunctivae: conjunctivae normal Pupils: Equal, round and reactive pupils present EOM: EOMs intact bilaterally Neck: Neck: normal visual inspection, no lymphadenopathy and nontender Resp: Effort & Inspection: normal respiratory effort Auscultation: clear to auscultation bilaterally Cardio: Rate: regular rate Rhythm: regular rhythm Heart sounds: no gallops, no murmurs and no rubs GI: Inspection: non-distended GI Palp: Yes Soft to palpation, No Tenderness to palpation present (GI), No Hepatomegaly present and No Splenomegaly present : Male General Exam: Yes hernia (very large RIH that extends fully into scrotum and is not reducible) Penis: Yes normal penis Scrotum: inguinal hernia on the right (very large scrotum from hernia) Testes: Testes normal Skin: Lesions: no lesions Rashes: no rashes Neuro: General: no focal motor deficits and CN's II-XI intact bilaterally Cranial nerves: Yes Equal, round and reactive pupils present, Yes Bilaterally intact EOM present, Yes facial symmetry and Yes Midline tongue present Speech: normal speech Motor exam (neuro): 5/5 motor strength present throughout and Motor abnormalities not present Extrem: General: no clubbing, cyanosis or edema and edema Psych: Affect: normal affect Thought process: Normal thought process present Insight: Good insight present (Psych) DS: Summary Time Spent with Patient Time attestation: Total time spent providing and/or coordinating discharge services: DS: Admitting Diagnosis Discharge Date 03/12/25 Admitting Diagnosis Incarcerated right inguinal hernia--large hernia extends to enlarge entire right hemiscrotum which is uncomfortable and enlarging. I was not able to reduce it. Plan to proceed with robotic laparoscopic right inguinal hernia repair with mesh. The procedure, risks, benefits were discussed. Usual recovery was discussed. The use of mesh was discussed. All questions were answered. He agrees to go ahead. DS: Discharge Diagnosis Discharge Diagnosis (1) Incarcerated right inguinal hernia: Code(s): K40.30 - Unilateral inguinal hernia, with obstruction, without gangrene, not specified as recurrent Status: Chronic Assessment and Plan: 12-18 inches of small intestine chronically incarcerated in the hernia defect. Robotic laparoscopic repair with mesh performed by Dr. Tamayo 03/12/2025 Discharge Plan Discharge Patient Disposition: Home Discharge Instructions: 1. May shower or bathe on 03/15/25. Remove SANTI wrap prior. Ok to wash incisions with soap and water. 2. Call office for: -Wound increasingly painful or bleeding -Vomiting -Fever of greater than 101 degrees 3. Keep Santi wrap around scrotum for 3 days if possible. Remove on 03/15/25. Wear scrotal support at all times except when sleeping or showering for 1 week 4. If no bowel movement for three days, take 1 oz. (30 ml) Milk of Magnesia, if no results, take Fleets enema. 5. No heavy lifting > 15-20 pounds for 2 weeks. 6. No driving for 3 days or while taking narcotic pain medications. 7. Up walking 10-30 minutes three times per day. 8. Resume previous home medications. 9. Follow-up 10-14 days in office for wound check or as previously scheduled. 10. Oral pain medications prescription to be sent home with patient. 11. NUTRITION: Start out by drinking fluids and increase your diet as tolerated. If you experience nausea, try dry toast, crackers, and 7-UP. If nausea or vomiting persists, contact your surgeon?s office. Patient Language: Chinese Stand Alone Forms: General Discharge Instructions Follow-up/Referrals: Shan Tamayo MD [Physician] - 2 Weeks Discharge Medications: New oxycodone-acetaminophen [Percocet] 5-325 mg tablet 0.5 - 1 tablet PO Q4H PRN (Reason: pain) Qty: 10 0RF ibuprofen 600 mg tablet 600 mg PO Q6H PRN (Reason: pain) Qty: 14 0RF Continued ferrous sulfate 325 mg (65 mg iron) tablet 325 mg PO DAILY Qty: 30 1RF hydroxyzine HCl 10 mg tablet 10 mg PO TID PRN (Reason: anxiety) Qty: 270 1RF triamcinolone acetonide 0.1 % cream 1 applic topical BID Qty: 80 0RF Rx Instructions: Apply to the right outer ear twice daily Stool Softener 50 mg capsule 50 mg PO DAILY turmeric 400 mg capsule 400 mg PO DAILY lisinopril 20 mg tablet 20 mg PO DAILY Patient Comments: Prescribed by Dr. Rojas paroxetine HCl 40 mg tablet See Rx Instructions .ROUTE .COMPLEX Qty: 90 2RF Dose Instruction: Take 1 tablet by mouth once daily Rx Instructions: Take 1 tablet by mouth once daily bumetanide 1 mg tablet See Rx Instructions .ROUTE .COMPLEX Qty: 90 0RF Dose Instruction: Take 1 tablet by mouth once daily Rx Instructions: Take 1 tablet by mouth once daily
[2025-03-12] VITALS (10 sets, daily range): BP systolic 109–164; BP diastolic 65–83; PULSE 69–78; RESP 12–20; TEMP 36.2–36.7; O2SAT 93–98; BMI 34.9
--- OUTSIDE RECORDS SUMMARY | 2025-03-12 00:38 | XMS_ITS | Referral Summary ---
Author Organization [facility] Healthcare Address [address] [place] [id number] Care Team Providers Care Materials Specialist Name Role Phone Trena Romero NP Primary Care Provider Encounters Date Type Department Care Team Description 03/03/2025 4:40 PM CDT - 03/03/2025 11:59 PM CDT Hospital Encounter [facility] ([facility]) [address] [place] [address] Abnormal finding on imaging Discharge Disposition: Discharge to home or self care 03/03/2025 10:39 AM CDT - 03/03/2025 11:59 PM CDT Hospital Encounter [facility] ([facility]) [address] [place] [phone] Abnormal result of other cardiovascular function study [...] Months Results * CT Coronary Fractional Flow [place] (03/04/2025 8:25 AM CDT) Anatomical Region Laterality Modality Chest N/A Computed Tomogra phy 03/04/2025 12:1 4 PM CDT Impressions 03/04/2025 12:46 PM CDT ADDENDUM: Coronary CTA Fractional Flow [place] (FFR) The below FFR CT results are [...] 03/04/2025 IMPRESSION: ADDENDUM: Coronary CTA Fractional Flow [place] (FFR) The below FFR CT results are [...] the branch point of the 1st septal cash person. No calcification in the small 1st diagonal [...] the branch point of the 1st septal cash person. No calcification in the small 1st diagonal [...] with no prior for comparison. Dictated by: Daina Alegre M.D. The radiology attending physician has personally reviewed this study, and had reviewed and/or edited this written report and agrees with it. Electronically signed by: Hans Mcghee M.D., MPH Barbara Rojas MD IMG CT PROCEDURES Final Resu lt from Last 3 Months Insurance c-[employer] MEDICARE PPO HUMANA [employer] MEDICARE PPO Care Teams Materials Specialist Relationship Specialty Start Date End Date Trena Romero NP [address] [place] [address] [address] [place] [address] PCP - General Cardiovascular Disease 03/03/25
--- OUTSIDE RECORDS SUMMARY | 2025-03-12 00:38 | XMS_ITS | Clinical Summary ---
Author Organization [facility] Address [address] [place] [address] Care Team Providers Care Director Private Music Therapy Agency Name Role Phone Jaret Saini MD Primary Care Provider [phone] Source Comments [facility],non-owned Affiliates and Associated Physician Practices is amultiple site organization consisting of ambulatory clinics and hospital sitesin [place], [place], [place] and [place]. This disclosure is being madepursuant to the Care Everywhere program and may not contain all information available regarding this patient. Last updated 18.[facility] Allergies Active Allergy Reactions Criticality Noted [...] Department Care Team Description 12/16/2024 1:45 PM ROPE TWISTING MACHINE OPERATOR Office Visit [facility] - Plastic Surgery [address] [place] [address], [place] [id number] Tashi Matthew MD Crushing injury of left [...] Recorded Patient Health Questionnaire-2 Score 0 01/23/2024 [facility] [place] of Occupat ional Health - Occupational Stress [...] place to sleep or slept in a alf (including now)? No 2023 Sex and Gender Information Value Date Recorded Sex Assigned at Male 2023 10:40 AM ROPE TWISTING MACHINE OPERATOR Legal Sex Male 11:49 AM ROPE TWISTING MACHINE OPERATOR Gender Identity Male 2023 10:40 AM ROPE TWISTING MACHINE OPERATOR Sexual Orientation Not on file Last Filed Vital Signs Vital Sign Reading Time Taken Comments Blood Pressure 135/84 12/16/2024 2:29 PM ROPE TWISTING MACHINE OPERATOR Pulse 70 12/16/2024 2:29 PM ROPE TWISTING MACHINE OPERATOR Temperature 36.9 C (98.4 F) 12/16/2024 2:29 PM ROPE TWISTING MACHINE OPERATOR Respiratory Rate 18 07/22/2024 1:02 PM CDT Oxygen Saturation 93% 12/16/2024 2:29 PM ROPE TWISTING MACHINE OPERATOR Inhaled Oxygen Concentration 35% 11/20/2023 4 :00 AM ROPE TWISTING MACHINE OPERATOR Weight 104.8 kg (231 lb) 12/16/2024 2:29 PM ROPE TWISTING MACHINE OPERATOR Height 170.2 cm (5' 7 ) 12/16/2024 2:29 PM ROPE TWISTING MACHINE OPERATOR Body Mass Index 36.18 12/16/2024 2:29 PM ROPE TWISTING MACHINE OPERATOR Plan of Treatment Health Maintenance [...] this topic Medical Devices Implanted Type Area Disaster Recovery Consultant Device Identifier Shelf Expiration Date Model / Serial / Lot Screw 2.7mm 5mm 14mm T8 Slf-Tap Strdr Implanted:Qty: 1 on 10/24/2023 by Tashi Matthew MD at [facility] 202.874 / / Screw 3.5mm 2.9mm 20mm T15 Ft Slf-Tap Implanted:Qty: 1 on 10/24/2023 by Tashi Matthew MD at [facility] 212.106 / / Screw 3.5mm 6mm 14mm Ft Samuel Slf-Tap Sm Implanted:Qty: 3 on 10/24/2023 by Tashi Matthew MD at [facility] 204.814 / / Screw 3.5mm 6mm 16mm 2.5mm Ft Slf-Tap Implanted:Qty: 5 on 10/24/2023 by Tashi Matthew MD at [facility] 204.816 / / Plate [id number] 10 Hl Lmt Cntct Tpr Implanted:Qty: 1 on 10/24/2023 by Tashi Matthew MD at [facility] 223.601 / / Plate 12 Hl Lmt Cntct Tpr End [id number] Implanted:Qty: 1 on 10/24/2023 by Tashi Matthew MD at [facility] 223.621 / / Screw 2.7mm 5mm 16mm T8 Slf-Tap Strdr Implanted:Qty: 2 on 10/24/2023 by Tashi Matthew MD at [facility] 202.876 / / Screw 2.7mm 5mm 18mm T8 Samuel Slf-Tap Implanted:Qty: 2 on 10/24/2023 by Tashi Matthew MD at [facility] 202.878 / / Screw 2.7mm 2.1mm 20mm T8 Slf-Tap Lck Implanted:Qty: 1 on 10/24/2023 by Tashi Matthew MD at [facility] 202.220 / / Plate 2 Hle/Hd 3 Hl Shft Lopro Cut To Implanted:Qty: 1 on 10/24/2023 by Tashi Matthew MD at [facility] [employer] 249.685 / / Screw 3.5mm 2.9mm 10mm T15 Ft Slf-Tap Implanted:Qty: 1 on 10/24/2023 by Tashi Matthew MD at [facility] [employer] 212.101 / / Screw 3.5mm 2.9mm 14mm T15 Ft Slf-Tap Implanted:Qty: 1 on 10/24/2023 by Tashi Matthew MD at [facility] [employer] 212.103 / / Screw 3.5mm 2.9mm 16mm T15 Ft Slf-Tap Implanted:Qty: 3 on 10/24/2023 by Tashi Matthew MD at [facility] [employer] 212.104 / / Screw 3.5mm 2.9mm 18mm T15 Ft Slf-Tap Implanted:Qty: 1 on 10/24/2023 by Tashi Matthew MD at [facility] [employer] 212.105 / / Mtrx Tissue [id number] Cytal Prcn Bldr 3 - [id number] Implanted:Qty: 1 on 10/27/2023 by Tashi Matthew MD at [facility] Left: Arm [employer] Erika 03/22/2025 [id number] / [id number] / [id number] 3.5mm Cannulated Compression Headless Screw 26mm Implanted:Qty: 1 on 10/27/2023 by Tashi Matthew MD at [facility] Left: Arm [employer] [id number] / / Sys Impl Internalbrace Forefoot Peek Implanted:Qty: 1 on 11/17/2023 by Tashi Matthew MD at [facility] Left: Arm [employer] 04/21/2028 AR-1530P-C P / / [id number] Set Impl Internalbrace Hand Wrst Kt Implanted:Qty: 1 on 11/17/2023 by Tashi Matthew MD at [facility] Left: Arm [employer] 07/22/2024 AR-8978-CP / / [id number] [place] Sut Cscr Fwr 2.2mm 2 Ndl Wire 4mm Implanted:Qty: 1 on 11/17/2023 by Tashi Matthew MD at [facility] Left: Arm [employer] 12/21/2027 AR-1318FT / / [id number] Explanted Type Area Disaster Recovery Consultant Device Identifier Shelf Expiration Date Model / Serial / Lot K-Wire 1.6mm (0.062) X 152 (6) Explanted:Qty: 2 on 11/17/2023 by Tashi Matthew MD at [facility] Left: Arm 08/08/2026 [id number] / / [id number] Procedures Procedure Name Priority Date/Time Associated Diagnosis Comments HEPATITIS C AB SCREEN RFLX NAAT QUANT STAT 11/06/2023 6:06 PM ROPE TWISTING MACHINE OPERATOR from Last 3 Months or Most Recently Relevant to Health Maintenance Results * HEPATITIS C AB SCREEN RFLX NAAT QUANT (11/06/2023 6:06 PM ROPE TWISTING MACHINE OPERATOR) Hepatitis C Antibody Non-react parish Non-reac tive 11/06/2023 7:13 PM ROPE TWISTING MACHINE OPERATOR [facility] Comment:Hepatitis C Antibody screen [...] Lab Venipuncture / Unknown 11/06/2023 6:06 PM ROPE TWISTING MACHINE OPERATOR 11/06/2023 6:16 PM ROPE TWISTING MACHINE OPERATOR Tashi Matthew MD LAB - CHEMISTRY ORDERABLES Fin al Result [facility] [address] [place] [id number], [facility] [phone] from Last 3 Months or Most Recently Relevant to Health Maintenance Insurance HUMANA MEDICARE ADV HMO & PPO Health [facility] Care Address: [address] [address] Advance Directives * Full Code (Latest Code Status on File) Date Activated Date Inactivated Comments 01/24/2024 12:49 AM 01/25/2024 6:41 PM * Full Code Date Activated Date Inactivated Comments 11/17/2023 6:44 PM 12/01/2023 10:38 PM * Full Code Date Activated Date Inactivated Comments 10/24/2023 7:05 PM 11/17/2023 6:44 PM Care Teams Director Private Music Therapy Agency Relationship Specialty Start Date End Date Jaret Saini MD [address] [place] [address] PCP - General 02/21/12
--- OUTSIDE RECORDS SUMMARY | 2025-03-12 00:38 | XMS_ITS | Encounter Summary ---
Author Organization [facility] Health Address [address] [place] [address] Care Team Providers Care Nursing Care Attendant Name Role Phone Jaret Saini MD Primary Care Provider [phone] Encounter Details Date Type Department Care Team (Late st Contact Info) Description 12/15/2023 Telephone [facility] - Centralized Scheduling [address] [place] [address] Pao Johnson, [facility] [address] [place] [address] Social History Tobacco Use Types Packs/Day Years [...] Recorded Patient Health Questionnaire-2 Score 0 12/19/2023 [facility] of Occupat ional Health - [...] place to sleep or slept in a chcf (including now)? No 2023 Sex and Gender Information Value Date Recorded Sex Assigned at Male 2023 10:40 AM THEATRICAL TROUPER Legal Sex Male 11:49 AM THEATRICAL TROUPER Gender Identity Male 2023 10:40 AM THEATRICAL TROUPER Sexual Orientation Not on file documented as [...] on filedocumented in this encounter Care Teams Nursing Care Attendant Relationship Specialty Start Date End Date Jaret Saini MD [address] [place] [address] PCP - General 02/21/12 documented as of this encounter
--- OUTSIDE RECORDS SUMMARY | 2025-03-12 00:38 | XMS_ITS | Clinical Summary ---
Author Organization [facility] Healthcare Address [address] [place] [id number] Care Team Providers Care Head Porter Baggage Name Role Phone Trena Romero NP Primary Care Provider Allergies No known active allergies Encounters Date Type Department Care Team Description 03/03/2025 4:40 PM CDT - 03/03/2025 11:59 PM CDT Hospital Encounter [facility] ([facility]) [address] [place] [id number] Abnormal finding on imaging Discharge Disposition: Discharge to home or self care 03/03/2025 10:39 AM CDT - 03/03/2025 11:59 PM CDT Hospital Encounter [facility] ([facility]) [address] [place] [address] Abnormal result of other cardiovascular function study [...] Months Results * CT Coronary Fractional Flow [place] (03/04/2025 8:25 AM CDT) Anatomical Region Laterality Modality Chest N/A Computed Tomogra phy 03/04/2025 12:1 4 PM CDT Impressions 03/04/2025 12:46 PM CDT ADDENDUM: Coronary CTA Fractional Flow [place] (FFR) The below FFR CT results are [...] 03/04/2025 IMPRESSION: ADDENDUM: Coronary CTA Fractional Flow [place] (FFR) The below FFR CT results are [...] the branch point of the 1st septal rose grader. No calcification in the small 1st diagonal [...] the branch point of the 1st septal rose grader. No calcification in the small 1st diagonal [...] PPO HUMANA CHOICE MEDICARE PPO Care Teams Head Porter Baggage Relationship Specialty Start Date End Date Trena Romero BOOK SEWING MACHINE OPERATOR [address] [place] [address] [address] PCP - General Cardiovascular Disease 03/03/25
[2025-03-12] MEDS: LACTATED RINGERS 1,000 ML 30 ML IV CONT ×2 (06:45→12:00)
--- NOTE | 2025-03-12 07:22 | WPDHPUPDATE1 ---
History and Physical Update Update Date/Time: 03/12/25 07:22 History and Physical has been reviewed, including an updated exam of the patient. There are NO changes in the patient's condition. Risks, benefits, and alternatives have been discussed and questions answered. Patient agrees to proceed with procedure.
[2025-03-12] MEDS: ACETAMINOPHEN 500 MG TABLET 1000 MG PO (07:43)
[2025-03-12] MEDS: KETOROLAC 15 MG/ML VIAL (*BKC) IV PUSH (07:43)
--- NOTE | 2025-03-12 08:06 | WPDANESEPPF ---
Anes - Initial Pre Proc Eval Procedure: Operation Date: 03/12/25 08:30 Proposed Procedures p Robotic Laparoscopic Large Right Inguinal Hernia Repair with Mesh - Shan Tamayo MD Date/Time: 03/12/25 08:06 Surgeon: Shan Tamayo MD Pre Op Diagnosis: Right Inguinal Hernia Patient Data Age: 79 Gender: M Height: 1.7 m Weight: 99.8 kg Allergies Allergy/AdvReac Type Severity Reaction Status Date / Time No Known Allergies Allergy Mild Verified 02/27/25 12:36 Home Medications ?Medication ?Instructions ?Recorded ?Confirmed ?Type ferrous sulfate 325 mg (65 mg 325 mg PO DAILY #30 tabs 01/18/24 02/27/25 Rx iron) tablet hydroxyzine HCl 10 mg tablet 10 mg PO TID PRN anxiety #270 tabs 01/18/24 02/27/25 Rx triamcinolone acetonide 0.1 % 1 applic topical BID #80 grams 04/23/24 02/27/25 Rx topical cream paroxetine HCl 40 mg tablet See Rx Instructions .Route 08/16/24 02/27/25 Rx .COMPLEX #90 tabs docusate sodium 50 mg capsule 50 mg PO DAILY 12/03/24 02/27/25 History (Stool Softener) turmeric 400 mg capsule 400 mg PO DAILY 12/03/24 02/27/25 History bumetanide 1 mg tablet See Rx Instructions .Route 12/20/24 02/27/25 Rx .COMPLEX #90 tabs lisinopril 20 mg tablet 20 mg PO DAILY 01/31/25 02/27/25 History Patient hx anesthesia problems: none Family hx anesthesia problems: none Results Review: All pre-operative results and documents have been reviewed as part of the pre-operative evaluation. [facility] Past Medical History Medical History Hypertension Other aftercare involving the use of plastic surgery Anxiety Family History Family History Grandparent Diabetes mellitus Mother Patient's mother is , Onset Age: 89 Father Family history of malignant neoplasm, Onset Age: 94 Sibling Cancer Hypertension Heart valve problem Depression Heart disease Grandparent Cancer Grandparent Cancer Diabetes mellitus Other No family history of cardiovascular disease No family history of hypertension No family history of malignant neoplasm Social History Social History Social History: caffeine - Smoking status: Former smoker Tobacco type: cigarettes Second hand tobacco smoke exposure: No Smoking end date: 10/23/75 Alcohol intake: current Substance use: current Substance use type: marijuana Last use: DAILY Do You Feel Safe in your Home?: Yes Lack of Transportation: No Lack of Food: Never True Current Housing: I Have Housing Concerned About Future Housing: No Difficulty Paying Gas/Electric Bills: No Difficulty Paying for Meds: No Currently Unemployed: No Education: High School Diploma/GED Difficulty w/ Childcare or Family Care: No Living arrangements: alone Occupation/Education: other Gender identity (if verbalized by the patient): Male Sexual Orientation (if Verbalized by the Patient): Straight or Heterosexual Spiritual care concerns: No Agree to blood products: No Anes - Eval Final PreProcedure Day of Procedure 03/12/25 08:06 Patient weight: obese Heart: regular rate and rhythm Lungs: decreased breath sounds Airway: Mallampati scale class II Neurological: alert and oriented Last oral intake: >/= 8 hours ASA classification: III Emergent: no Anesthetic plan: proceed Anesthesia type and monitoring: general ETT and standard monitoring Results Review: All pre-operative results and documents have been reviewed as part of the pre-operative evaluation. Informed Consent: The patient's anesthetic plan and its attendant risks and benefits were discussed with the patient/family/POA. Questions were solicited and answers provided to the satisfaction of the patient/family/POA.
[2025-03-12] MEDS: ceFAZolin 2 GM/D5W 50 ML 2 GM/50 ML BAG IVPB (08:30)
[2025-03-12] MEDS: BUPIVACAINE/EPINEPHRINE 0.5% 50 ML VIAL 30 ML INFILTRATE (09:16)
--- NOTE | 2025-03-12 12:37 | P.OP_ITS ---
Procedure Note - Detailed Date of Procedure 03/12/25 Pre-op Diagnosis Incarcerated right Inguinal Hernia Post-op Diagnosis Same Procedure Performed Robotic laparoscopic repair incarcerated large scrotal right inguinal hernia with mesh Surgeon Shan Tamayo MD Legal Research Analyst [facility] Anesthesia General and Local Indications Patient has had a right inguinal hernia for some time. It has gotten larger and is very bothersome. It fills the right hemiscrotum. He is taken to surgery now for robotic laparoscopic repair. The hernia was not reducible in the office or preoperatively. Findings Patient had a very large hernia with a lot of lipomatous tissue of the cord and in the general inguinal space. Procedure was much more difficult than usual. Blood loss was 50 cc which was 5 times more than usual. The surgery took 3 h ours which is twice as long or more than usual. The extra fatty tissue in inguinal area created more bleeding which made dissection and visualization of different structures more difficult. He had over 12 in of small intestine incarcerated in the hernia. Description of Procedure Patient was taken to surgery and induced into general anesthesia. I was able to partially reduce the hernia so that it was more in the lower pubis than the scrotum. I then wrapped the entire scrotum in a snug fashion with 3 in Santi wrap. The abdomen was than prepped and draped. Trocars were placed in the usual fashion 1st using a 5 mm applied Medical optical trocar then placing the robotic trocars under direct visualization. Ilioinguinal nerve block was placed. Patient was placed in steep Trendelenburg. The hernia was easily seen. We then brought in the robotic arms and position the camera and instruments appropriately. Surgeon went to the robotic console. There was quite a bit of small intestine incarcerated in the hernia. Fortunately, with some pressure on the scrotum and traction from the surgeon, this reduced with minimal effort. It left behind a very large, chronic indirect defect. The procedure was started by creating a peritoneal flap over the anterior aspect of the inguinal canal. This flap was developed broadly. Care was taken not to create any holes in the flap. The flap was dissected laterally proceeding as far posterior as possible. The medial dissection was then done. The dissection was carried out such that it was directly behind the right rectus muscle. Following the muscle to the pubis, I encountered dense fibrofatty tissue over Josef's ligament. This was very unusual. It was also quite bloody to dissect. I dissected the properitoneal fat off of the midline and off of the medial edge of the left rectus muscle. Dissecting down on the left side, I was much more easily able to see Josef's ligament there. I followed this to the midline and found the pubis. There were adherent fibrofatty attachments to Josef's ligament and the pubis. The dissection was not able to be done bloodlessly as it usually is because of this. Eventually I expect opposed the pubis and Josef's ligament and dissected posterior to these structures a couple of cm. Care was taken to avoid injury to the urinary bladder. I then turned my attention to dissection and reduction of the large hernia sac. This was by far the most difficult aspect of the surgery. Gentle traction was placed on the anterior aspect of the hernia sac. I divided some of the transversalis sling over the anterior aspect. I was slowly reducing some of the hernia sac which was under a great deal of tension to go back into the scrotum. Eventually I was able to reduce some fatty tissue and divided its attachments. With perseverance, eventually I came to what appeared to be the into the hernia sac but at this point there was so much fatty tissue and the sac was covered in this fatty tissue that I could not really see the into the sac. However, I did come to a point where the sac and the fatty tissue were reduced and were not being pulled back into the scrotum. I carefully dissected on the parts of the hernia sac that I could identify by placing lateral traction on the hernia sac and then cautery and gentle dissection to sweep fatty tissue and possible cord structures through the lateral aspect of the sac and eventually posterior. This fatty tissue was very vascular and bled during the dissection despite my best efforts to maintain good hemostasis. This took much longer than it usually does and was much more bloody. Eventually, I did find the cord structures. I tried dissecting them lateral and posterior and was largely alvarez ccessful. There was a lot of tattered scar tissue or cremasteric fiber that I divided and removed. There was also a great deal of loose lipomatous tissue that I dissected and removed. Eventually the hernia sac and the lipomatous tissue was dissected free of the cord structures. I then continued this dissection and dissected the hernia sac and peritoneum posterior and cephalad to allow enough room for the mesh to be placed properly. This was also bloody. The 1st psychologist research assistant had to use the suction to or 3 different times. I then returned to the Josef's ligament dissection and proceeding laterally removed quite a bit of fatty tissue that would keep the mesh from laying up against the cord structures in a snug fashion. I then recheck the lateral dissection and all looked good. An extra-large, 17 x 12 cm, right mid 3D max mesh was then introduced into the peritoneal cavity. This was positioned over the hernia defect and Josef's ligament. I used a 3-0 Vicryl and sutured the mesh to Josef's ligament. Two additional 3-0 Vicryl sutures were placed anteriorly securing the mesh on the lateral and medial aspect. Three 0 V lock suture was then used to close the peritoneal defect from lateral to medial. Once this was closed, all looked good. We removed any remaining suture and needles. We then removed the instruments and undocked the robot. CO2 was evacuated from the abdominal cavity. Trocars were removed. Skin wounds were closed with subcuticular 4-0 Monocryl skin suture. The wounds were dressed with Exofin surgical adhesive. An athletic supporter was placed over the penis and scrotum. The patient was awakened and taken to recovery in good condition. Sponge and needle counts were correct x2. The Santi wrap placed at the beginning of the surgery was left in place to compress the scrotum. Implants Extra-large, 17 x 12 cm, right mid 3DMax mesh Estimated Blood Loss -50 Drains No Packing No Pathology None sent Complications None Condition Stable Disposition PACU [facility] Billing Surgery - Charge Forward: Surgery Billing (Robotic laparoscopic repair of large incarcerated right inguinal hernia with mesh-add 22 modifier for increased difficulty)
[2025-03-12] MEDS: oxyCODONE HCL (*CRX) 5 MG TAB IR PO (14:07)
== END 2025-03-12 14:21 | disposition home or self-care (01) ==
PROVIDERS: PCP Clinical Nurse Specialist; Visit Provider Surgery
PROC: 8E0Y4CZ Robotic Assisted Procedure of Lower Extremity, Percutaneous Endoscopic Approach (ICD-10-PCS; CPT 49650; principal; 2025-03-12 08:30)
DX: K40.30 Unilateral inguinal hernia, with obstruction, without gangrene, not specified as recurrent (principal); G89.18 Other acute postprocedural pain; I10 Essential (primary) hypertension; F41.9 Anxiety disorder, unspecified; F12.90 Cannabis use, unspecified, uncomplicated; E66.9 Obesity, unspecified; Z68.35 Body mass index [BMI] 35.0-35.9, adult; Z79.891 Long term (current) use of opiate analgesic; Z79.1 Long term (current) use of non-steroidal anti-inflammatories (NSAID); Z87.891 Personal history of nicotine dependence; Z80.9 Family history of malignant neoplasm, unspecified; Z82.49 Family history of ischemic heart disease and other diseases of the circulatory system
CPT/HCPCS: 49650; S2900; A9270; C1781; J0360; J0690; J1100; J1885; J2405; J2704; J3010; J7030; J7120